=== PATIENT | female | born 1970 | race Caucasian/White ===

== ENCOUNTER → 2019-05-13 15:32 | Outpatient (BNVA) | payer BC, SELFPAY | PROVIDERS: Family Provider Nurse Practitioner Family; PCP Nurse Practitioner Family; Visit Provider Nurse Practitioner Family | DX: E11.9 Type 2 diabetes mellitus without complications (principal); E78.5 Hyperlipidemia, unspecified; I10 Essential (primary) hypertension; K21.9 Gastro-esophageal reflux disease without esophagitis | CPT/HCPCS: 80048; 80061; 82044; 83036 ==

== ENCOUNTER → 2019-05-21 11:53 | Outpatient (BNVA) | payer BC, SELFPAY | PROVIDERS: Family Provider Nurse Practitioner Family; PCP Nurse Practitioner Family; Visit Provider Nurse Practitioner Family | DX: N63.0 Unspecified lump in unspecified breast (principal); M75.82 Other shoulder lesions, left shoulder; N64.52 Nipple discharge | CPT/HCPCS: 87070; 87075; 87077; 87186; 87205 ==

== ENCOUNTER → 2019-11-10 09:00 | Outpatient (BNVA) | payer BC, SELFPAY | PROVIDERS: Family Provider Nurse Practitioner Family; PCP Nurse Practitioner Family; Visit Provider Nurse Practitioner Family | DX: E78.5 Hyperlipidemia, unspecified (principal); E11.9 Type 2 diabetes mellitus without complications; I10 Essential (primary) hypertension; E55.9 Vitamin D deficiency, unspecified; R53.83 Other fatigue; D72.829 Elevated white blood cell count, unspecified; K21.9 Gastro-esophageal reflux disease without esophagitis; R10.9 Unspecified abdominal pain; R59.0 Localized enlarged lymph nodes | CPT/HCPCS: 80053; 80061; 81001; 82306; 84439; 84443; 84481; 85025; 85651; 86140 ==

== ENCOUNTER → 2019-11-11 19:33 | Outpatient (BNVA) | payer BC, SELFPAY | PROVIDERS: Family Provider Nurse Practitioner Family; PCP Nurse Practitioner Family; Visit Provider Nurse Practitioner Family | DX: E11.9 Type 2 diabetes mellitus without complications (principal); E78.5 Hyperlipidemia, unspecified; I10 Essential (primary) hypertension; E55.9 Vitamin D deficiency, unspecified; R53.83 Other fatigue; D72.829 Elevated white blood cell count, unspecified; K21.9 Gastro-esophageal reflux disease without esophagitis; R10.9 Unspecified abdominal pain; R59.0 Localized enlarged lymph nodes; E78.2 Mixed hyperlipidemia | CPT/HCPCS: 83036 ==

== ENCOUNTER 2019-12-01 08:59 | Outpatient (CLI) | payer BC, SELFPAY ==
--- NOTE | 2019-12-01 09:30 | US_ITS ---
WS: [id number] ULTRASOUND ABDOMEN CLINICAL INFORMATION: abdominal pain COMPARISON: NNone.one. FINDINGS: Liver Size: Enlarged Craniocaudal length: 18.8 cm. Echogenicity: Fatty Surface nodularity: None. Mass (size and location): None. Bile ducts Intrahepatic ducts: Normal. Common bile duct diameter: 0.5 cm. Gallbladder Removed Pancreas Normal as visualized. Spleen Splenomegaly: None. Craniocaudal length: 10.4 cm. Right kidney: Normal. Hydronephrosis: None. Size: 10.3 cm x 5.2 cm x 4.7 cm Left kidney: Normal. Hydronephrosis: None. Size: 12.2 cm x 5.0 cm x 4.5 cm. Abdominal aorta and IVC Visualized portions are normal. Ascites: None. US/US abdomen complete* [id number] IMPRESSION: 1. Hepatomegaly with diffuse fatty infiltration. 2. Gallbladder has been removed. 3. No hydronephrosis in either kidney.
--- NOTE | 2019-12-01 10:15 | US_ITS ---
WS: [id number] INDICATION: Left axillary lymphadenopathy TECHNIQUE: Ultrasound left axilla area of concern FINDINGS: Ultrasound left axilla area of concern. Enlarged left axillary lymph node measuring 4.2 x 1 .4 x 2.6 CM with loss of the normal fatty hilum. A few additional normal-appearing normal-sized lymph nodes. US/US soft tissue/extremity [id number] IMPRESSION: A few lymph nodes noted in the left axilla, 1 enlarged measuring 4.2 x 1.4 x 2. 6 CM with loss of the normal fatty hilum. This is nonspecific and recommend fur ther evaluation with ultrasound-guided biopsy.
== END 2019-12-01 09:00 | disposition home or self-care (01) ==
LOC: US 09:00
PROVIDERS: PCP Nurse Practitioner Family; Visit Provider Nurse Practitioner Family
DX: R10.9 Unspecified abdominal pain (principal); R59.0 Localized enlarged lymph nodes; R16.0 Hepatomegaly, not elsewhere classified; K76.0 Fatty (change of) liver, not elsewhere classified
CPT/HCPCS: 76700; 76882

== ENCOUNTER 2019-12-17 12:01 | Outpatient (CLI) | payer BC, SELFPAY ==
--- NOTE | 2019-12-17 13:00 | US_ITS ---
WS: [id number] INDICATION: Ultrasound-guided left axillary biopsy. Enlarged left axillary lymph node. TECHNIQUE: The procedure including risks benefits and complications were discussed with the patient w ho agreed to proceed. Using sterile technique patient was prepped and draped in usual sterile fashion . After 1% lidocaine, using ultrasound guidance, 5 18-gauge cores were obtained of the enlarged left axillary lymph node. No immediate complications. Samples sent to pathology. US/US biopsy lymph node [id number] IMPRESSION: Uncomplicated left axillary lymph node biopsy
[2019-12-25 14:44] LABS: Miscellaneous Test See Scanned Lab Rpt
== END 2019-12-17 12:02 | disposition home or self-care (01) ==
LOC: RAD 12:04
PROVIDERS: PCP Nurse Practitioner Family; Visit Provider Nurse Practitioner Family
DX: R59.0 Localized enlarged lymph nodes (principal)
CPT/HCPCS: 38505; 76942; 88184; 88185; 88305

== ENCOUNTER → 2020-01-08 08:41 | Outpatient (BNVA) | payer BC, SELFPAY | PROVIDERS: PCP Nurse Practitioner Family; Visit Provider Internal Medicine | DX: Z11.59 Encounter for screening for other viral diseases (principal) | CPT/HCPCS: 87635 ==

== ENCOUNTER 2020-01-12 08:49 | Observation (INO) | payer BC, SELFPAY ==
[2020-01-08 12:36] VITALS: BMI 31.3
--- NOTE | 2020-01-08 12:57 | ECG_ITS ---
[facility] Test Date: 2020-01-08 Pat Name: Dinah Fontenot Department: Room: Gender: Female Medical Technologist Prn: : 1970 Requested By: Sandra Hook Order Number: [id number] Alex MD: Rosetta Streeter M.D. Measurements Intervals Victor Rate: 89 P: 23 AR: 176 QRS: 1 QRSD: 89 T: 29 QT: 348 QTc: 424 Interpretive Statements SINUS RHYTHM LOW QRS VOLTAGE IN PRECORDIAL LEADS [QRS DEFLECTION < 1.0 mV IN CHEST LEADS] POSSIBLE ANTERIOR MYOCARDIAL INFARCTION [30 ms Q WAVE IN V3/V4, OR R < 0.2 mV IN V4], PROBABLY OLD No previous ECG available for comparison Electronically Signed On 01-08-2020 21:15:09 CDT by Rosetta Streeter M.D. [id number]
[2020-01-08 13:19] LABS: Basophils # 0.1 10^3/uL (0.0-0.1); Basophils % 0.6 %; Eosinophils # 0.2 10^3/uL (0.0-0.8); Eosinophils % 1.4 %; Hematocrit 50.7 % (37.0-47.0); Hemoglobin 17.1 g/dL (11.5-15.3); Lymphocytes # 3.6 10^3/uL (0.8-4.8); Lymphocytes % 28.4 %; Mean Corpuscular HGB Conc 33.7 g/dL (30.0-36.0); Mean Corpuscular Hemoglobin 30.3 pg (28.0-34.0); Mean Corpuscular Volume 89.7 fL (81-99); Mean Platelet Volume 9.7 fL (7.4-10.4); Monocytes # 0.7 10^3/uL (0.2-0.9); Monocytes % 5.9 %; Neutrophils # 7.95 10^3/uL (1.8-7.7); Neutrophils % 63.5 %; Nucleated Red Blood Cells % 0 %; Platelet Count 299 10^3/cmm (130-400); Red Blood Count 5.65 10^6/uL (4.1-5.3); Red Cell Distribution Width 13.3 % (12.1-15.1); White Blood Count 12.5 10^3/uL (4.0-10.0)
--- NOTE | 2020-01-08 13:33 | P.ANESASSM_ITS ---
Pre-Anesthetic Assessment Pre-Anesthetic Assessment: Height/Weight: Height 1.68 m Weight 87.997 kg Preop Diagnosis: Rectocele Proposed Procedure: Operation Date: 01/12/20 07:00 Proposed Procedures p Posterior Repair Posterior [id number] / N81.6(Not Applicable) - Glynn Robles MD s Enterocele Repair(Not Applicable) - Glynn Robles MD Familial anesthetic complications: hard to wake up Was Beta Comfort taken within 24 hours: N/A Social: Social History: Tobacco and No alcohol Exam: Pre-Anes Outpt Exam: alert, oriented x 3, clear to auscultation bilaterally and regular rate & rhythm Airway: Cervical ROM: WNL MP: 3 Dentition: False CV/HEM: CV/HEM: HTN Hepatic: Comments: cash GI: GI: GERD Metabolic: Metabolic: DM, Hyperlipidemia and Morbid obesity Anesthetic Plan: ASA status: 3 Anesthesia: General Risk of > 500 ml blood loss (7ml/kg in children): No PFSH Anesthesia PFSH: Medical History Axillary lymphadenopathy Diabetes mellitus, type II Diagnosed in 2016 managed by primary care provider. She is on metformin and recently started Rybelsus in November 2019. Enlarged lymph nodes in armpit GERD (gastroesophageal reflux disease) Controlled with omeprazole. Has never had an endoscopy HTN (hypertension) Diagnosed in 2017 and is on lisinopril managed by her primary care provider. Does not have a entry level accountant Hyperlipemia Diagnosed in 2017 and is on medication. CASH (nonalcoholic steatohepatitis) No pertinent past medical history Denies asthma, seizures, DVT/PE or thyroid problems. PCP: NATHALIE Meyer Reactive lymphoid hyperplasia Surgical History S/P bladder repair x2 ----> 2006--had bladder prolapse and had mesh placed by Dr. Estrada. ----> 2014---patient had pain and had removal of mesh by Dr. Perry In [place] S/P colonoscopy with polypectomy Patient had colonoscopy with removal of two polyps. 2013 at [facility]. S/P laparoscopic cholecystectomy 1993 S/P wrist surgery --ganglion cyst removed from left wrist Status post hysterectomy 2006--vaginal hysterectomy with bilateral salpingo-oophorectomy done for abnormal uterine bleeding by Dr. Estrada. -Patient states her pathology was benign. Status post tonsillectomy Age of 6 or 7 Status post tubal ligation 1992- procedure via umbilicus Family History Mother Diabetes Grandmother Diabetes maternal Hypertension maternal Brother Diabetes Family/Other Breast cancer paternal aunt, age at diagnosis unknown Sister Ovarian cancer diagnosed in her 30s, mets to uterus Denies family history of Heart disease Hyperlipidemia Stroke Social History Smoking and tobacco status: current every day smoker Additional social history: - Tobacco Use: Started smoking at age 20 and has smoked up to 1 1/2 packs per day since then. Currently smoking one pack per day. Drug Use: Denies Alcohol Use: Denies Work/Study Status: Stay at home mother Data Anesthesia CBC & Chem 7: 01/08/20 12:57 01/08/20 12:57 Other Labs: Laboratory Results - last 48 hr 01/08/20 12:57 WBC 12.5 H RBC 5.65 H Hgb 17.1 H Hct 50.7 H MCV 89.7 MCH 30.3 MCHC 33.7 RDW 13.3 Plt Count 299 MPV 9.7 Neut % (Auto) 63.5 Lymph % (Auto) 28.4 [place] % (Auto) 5.9 Eos % (Auto) 1.4 Baso % (Auto) 0.6 Neut # (Auto) 7.95 H Lymph # (Auto) 3.6 [place] # (Auto) 0.7 Eos # (Auto) 0.2 Baso # (Auto) 0.1 Nucleated RBC % (auto) 0 Nucleated RBCs # 0.0 Cardiac Studies: No Data to Display
[2020-01-08 14:07] LABS: Blood Urea Nitrogen 11 mg/dL (6-20); Calcium 8.9 mg/dL (8.5-10.5); Carbon Dioxide 27 mmol/L (22-29); Chloride 101 mmol/L (98-107); Glomerular Filtration Rate 105.8 mL/min (90-130); Glucose 91 mg/dL (65-115); Osmolality Calculated 280 mOsm/kg (285-295); Sodium 137 mmol/L (136-145)
[2020-01-12] VITALS (17 sets, daily range): BP systolic 93–143; BP diastolic 61–97; PULSE 63–98; RESP 16–23; TEMP 36.1–36.8; O2SAT 87–99
[2020-01-12 06:40] LABS: Glucose Point of Care 119 mg/dL (70-110)
[2020-01-12] MEDS: ketorolac 30 mg/mL INJ IVP ×2 (06:40→14:16)
[2020-01-12] MEDS: sodium chloride 0.9% 1,000 ML 30 ML IV (06:40)
[2020-01-12] MEDS: phenazopyridine 100 mg Tablet 200 MG PO ×3 (06:40→20:11)
--- NOTE | 2020-01-12 06:42 | P.ANESUD_ITS ---
Pre-Anesthetic Update Pre-Anesthetic Assessment: Date of Surgery/Procedure: 01/12/20 Preop Margot gnosis: Rectocele Proposed Procedure: Operation Date: 01/12/20 07:00 Proposed Procedures p Posterior Repair Posterior [id number] / N81.6(Not Applicable) - Glynn Robles MD s Enterocele Repair(Not Applicable) - Glynn Robles MD Any changes to Pre-Anesthetic Assessment?: No Last Intake: Intake Last Liquid Date 01/12/20 Last Liquid Time 03:00 Last Solid Date 01/11/20 Last Solid Time 22:00 Labs Last 48hrs: Laboratory Results - last 48 hr 01/12/20 06:36 POC Glucose 119 Vitals: Temperature 97.9 F 01/12/20 06:04 Temperature Source Temporal Artery S can 01/12/20 06:04 Pulse Rate 75 01/12/20 06:04 Respiratory Rate 18 01/12/20 06:04 Blood Pressure 138/97 01/12/20 06:04 Blood Pressure Whitney n 110 01/12/20 06:04 Pulse Oximetry 95 01/12/20 06:04 Oxygen Delivery Me thod 01/12/20 06:07 Exam: Pre-Anes Outpt Exam: alert, oriented x 3, clear to auscultation bilaterally and regular rate & rhythm
--- NOTE | 2020-01-12 06:43 | P.HPUD_ITS ---
Surgery/Procedure H&P Update DATE OF PROCEDURE: January 12, 2020 DATE H&P PERFORMED: 01/08/20 H&P UPDATE INFORMATION: I have reviewed H&P completed within last 30 days, I have examined patient prior to procedure, No changes to prior documentation and H&P is in [facility] EMR on date indicated PREOP DIAGNOSIS: Rectocele PLANNED PROCEDURE: Operation Date: 01/12/20 07:00 Proposed Procedures p Posterior Repair Posterior [id number] / N81.6(Not Applicable) - Glynn Robles MD s Enterocele Repair(Not Applicable) - Glynn Robles MD
[2020-01-12] MEDS: vasopressin 20 unit/mL INJ INJECTION (08:02)
--- NOTE | 2020-01-12 08:25 | PM.OP ---
Operative Report Date of procedure: January 12, 2020 Pre-op Diagnosis: Rectocele Post-op Diagnosis: Rectocele Procedure Done: Posterior colporrhaphy Specimens removed/disposition: None Surgeon: Glynn Robles Archival Studies Professor: None Anesthesia: General Estimated blood loss (mL): 50 IV fluids (mL): 1,000 Complications: None Findings: Third-degree rectocele with perineal defect. Brief History: Patient is a 49-year-old white female 5, para 3-2-0-5 who had a hysterectomy with BSO in 2006. She presented to the office with >1-year history of prolapse complaints. She has noticed a bulge at the vaginal opening which worsens with prolonged standing and straining with bowel movements. She reports having to push down on the bulge to assist with emptying bowels. She denies vaginal bleeding. She denied other complaints. On exam in the office, she was noted to have a third degree rectocele with possible enterocele. Treatment options were discussed with her and she is presenting for posterior repair. Procedure: Patient was taken to the operating room where general anesthesia was obtained. She was prepped and draped in usual sterile fashion dorsal supine position with legs in Braulio style stirrups. Sequential compression boots have been placed prior to starting the case. Argueta catheter was inserted and exam under anesthesia was performed. She had a third degree rectocele noted with gaping perineum. Peritoneum was injected with dilute Pitressin solution and a wedge shaped piece of skin was excised. Posterior vaginal wall was injected with dilute Pitressin solution. It was undermined and opened in the midline for approximately two thirds of the length of the posterior wall. The vaginal mucosa was sharply and bluntly dissected off of the rectovaginal fascia and the dissection was carried to the vaginal vault. It was extended laterally to the lateral aspect of the posterior wall. Rectovaginal exam was performed at this point. No enterocele was identified. Rectovaginal fascia was identified and had been torn across the upper supports and had been pushed down towards the perineal body. In the corners at the vaginal cuff 2-0 Vicryl suture was placed with good support noted in the corners. Multiple stitches were placed across the top of the vaginal cuff. The stitches were then secured into the apex of the rectovaginal fascia. When tied, this almost completely eliminated the rectocele. To provide additional support, 2-0 Vicryl suture was placed laterally into the posterior wall and tied in the midline. This provided further support along the posterior wall. This was carried out into the main body of the perineum as well. Excess vaginal mucosa was excised. The posterior vaginal wall was closed with 3-0 Vicryl suture in a running locking fashion. Once the hymenal ring was reached, stitch was tied. The perineal body was further built-up with interrupted stitches of 2-0 Vicryl suture. Stitch was placed of the bulbocavernosus muscles bilaterally and tied in the midline providing additional perineal support. The superficial portion of the perineum was reapproximated using 3-0 Vicryl suture in a running fashion. Skin was reapproximated using 3-0 Vicryl suture in a subcuticular fashion. Rectovaginal exam was performed with good support of the posterior wall noted. Vagina was packed with 1 inch Nu Gauze. Patient tolerated procedure well. Sponge and needle counts were correct. Drains: Argueta catheter Postoperative Status: Patient was transferred to recovery room in satisfactory condition.
--- NOTE | 2020-01-12 08:37 | SUR.PHASEI ---
0834 PATIENT TO PACU FROM OR. RR EVEN AND UNLABORED. ORAL AIRWAY IN PLACE. OJEDA CATH IN PLACE. PATIENT APPEARS IN NO PAIN.
--- NOTE | 2020-01-12 08:58 | SUR.PHASEI ---
0840 ORAL AIRWAY REMOVED. SPO2 98% ON SIMPLE MASK AT 8L.
--- NOTE | 2020-01-12 09:00 | PM.PACU ---
PACU note Post-Anesthesia Exam: awake and unarousable Disposition: admitted
--- NOTE | 2020-01-12 09:02 | SUR.PHASEI ---
0900 PATIENT TO OB. TRANSPORTED BY [facility]. PATIENT DENIES PAIN. A/OX3. RR UNLABORED. NAUSEA IMPROVED. TOLERATING ICE CHIPS. OJEDA CATH IN PLACE.
[2020-01-12] MEDS: lactated ringers 1,000 ML 125 ML IV (10:00)
[2020-01-12] MEDS: ondansetron 2 mg/ML SDV 2 mL 4 MG IVP (10:00)
[2020-01-12] MEDS: scopolamine 1.5 Patch 1 PATCH TRANSDERMA (10:20)
[2020-01-12 12:04] LABS: Glucose Point of Care 113 mg/dL (70-110)
[2020-01-12] MEDS: HYDROcodone-acetaminophen 5-325 mg Tablet PO (16:28)
[2020-01-12 16:48] LABS: Glucose Point of Care 123 mg/dL (70-110)
[2020-01-12] MEDS: metformin 500 mg Tablet PO (17:02)
[2020-01-12] MEDS: docusate sodium 100 mg Capsule PO (17:02)
[2020-01-12] MEDS: nicotine 21 mg Patch 1 PATCH TRANSDERMA (17:37)
[2020-01-12] MEDS: alum-mag-hydroxide-sime 30 mL UDC PO (20:11)
[2020-01-12 20:19] LABS: Glucose Point of Care 151 mg/dL (70-110)
[2020-01-13] MEDS: HYDROcodone-acetaminophen 5-325 mg Tablet PO (00:48)
[2020-01-13 04:15] VITALS: BP 125/76; PULSE 73; RESP 16; TEMP 36.6; O2SAT 95
[2020-01-13 04:25] LABS: Hematocrit 44.4 % (37.0-47.0); Hemoglobin 14.4 g/dL (11.5-15.3); Mean Corpuscular HGB Conc 32.4 g/dL (30.0-36.0); Mean Corpuscular Hemoglobin 29.8 pg (28.0-34.0); Mean Corpuscular Volume 91.7 fL (81-99); Mean Platelet Volume 9.9 fL (7.4-10.4); Platelet Count 275 10^3/cmm (130-400); Red Blood Count 4.84 10^6/uL (4.1-5.3); Red Cell Distribution Width 13.6 % (12.1-15.1); White Blood Count 16.8 10^3/uL (4.0-10.0)
[2020-01-13 06:56] LABS: Glucose Point of Care 110 mg/dL (70-110)
[2020-01-13] MEDS: docusate sodium 100 mg Capsule PO (08:06)
[2020-01-13] MEDS: lisinopril 10 mg Tablet PO (08:06)
[2020-01-13] MEDS: phenazopyridine 100 mg Tablet 200 MG PO (08:06)
[2020-01-13] MEDS: metformin 500 mg Tablet PO (08:07)
[2020-01-13] MEDS: pantoprazole DR 40 mg Tablet PO (08:07)
--- NOTE | 2020-01-13 08:15 | PC.NURSE ---
Packing removed per Dr Tony, pt tolerated well. Small amount of old bleeding noted, nothing active or new.
--- NOTE | 2020-01-13 08:25 | PM.DCS ---
Discharge Providers Date of Admission: 01/12/20 08:49 Date of Discharge: January 13, 2020 Attending Provider at Admission: Glynn Robles MD Attending Provider at Discharge: Glynn Robles MD Primary Care Provider: NATHALIE Aragon Diagnoses at Discharge Discharge Diagnosis (1) Rectocele: Status: Acute (2) Diabetes mellitus, type II: Status: Acute Problem details: Diagnosed in 2017 managed by primary care provider. She is on metformin and recently started Rybelsus in November 2019. Qualifiers: Diabetes mellitus roasterman insulin use: unspecified detention insulin use status Diabetes mellitus complication status: without complication Qualified Code(s): E11.9 - Type 2 diabetes mellitus without complications (3) HTN (hypertension): Status: Acute Problem details: Diagnosed in 2017 and is on lisinopril managed by her primary care provider. Does not have a web merchandiser Qualifiers: Hypertension type: essential hypertension Qualified Code(s): I10 - Essential (primary) hypertension Reason for Visit Reason for Visit: Brief History: Surgery for rectocele Hospital Course Hospital Course: Patient is a 49-year-old white female 5, para 3-2-0-5 who is status post hysterectomy and BSO in 2006. She presented to the office with a >1-year history of prolapse complaints. She has noticed a bulge at the vaginal opening which worsens with prolonged standing and straining with bowel movements. She reports having to push down on the bulge to assist with emptying her bowels. She denied vaginal bleeding. She denied other complaints. She presented to the hospital for surgical treatment. She had a posterior colporrhaphy performed on 01/12/2020. She tolerated the surgery well. She did have some post op nausea requiring parenteral antiemetics. Her sugars were covered with sliding scale insulin initially following surgery. She had been advanced to a regular diet by supper and was started on metformin. She had received her home dose of lisinopril the morning of surgery. Postoperative Day 1 Patient reports doing well. She states her pain is been controlled with medications. She denied lightheadedness or dizziness with ambulation. She reports tolerating a regular diet without nausea or vomiting this morning. She denies shortness of breath or chest pains. Physical exam: See below Plan Vaginal packing was removed and Argueta catheter removed this morning. Patient is to urinate at least once. If she does well with this, she then will be discharged home. She was instructed to resume her usual home medications. Discharge instructions were discussed with her including nothing in the vagina until after her 6 weeks checkup. Lifting restrictions was also discussed. Patient to follow-up in the office in 2 and 6 weeks. Physical Exam Const: COMMON NORMALS: no acute distress, average body habitus, alert and well nourished GENERAL APPEARANCE: well developed ORIENTATION/CONSCIOUSNESS: Yes oriented to person, Yes oriented to place and Yes oriented to time Resp: COMMON NORMALS: normal respiratory effort and clear to auscultation bilaterally AUSCULTATION: clear to auscultation bilaterally Cardio: COMMON NORMALS: regular rate, regular rhythm, No gallops present (Cardio), No murmurs present (Cardio) and No rub (Cardio) RATE: regular rate RHYTHM: regular rhythm GI: COMMON NORMALS: Soft to palpation, No hepatosplenomegaly present and no masses AUSCULTATION: Yes normoactive bowel sounds PALPATION: Yes Soft to palpation, Yes Tenderness to palpation present (GI) (Mild suprapubic tenderness), Yes No hepatosplenomegaly present and No Hernia present : EXTERNAL FEMALE EXAM: No Hernia present Extremity: COMMON NORMALS: no clubbing, cyanosis or edema and no calf tenderness Neuro: SENSORIUM/ORIENTATION: Yes alert, Yes oriented to person, Yes oriented to place and Yes oriented to time Psych: COMMON NORMALS: normal affect MOOD & AFFECT: Yes euthymic mood Urinary Catheter Management^: Argueta: Cath Placed During This Visit: yes Urinary Catheter Date of Insertion: 01/12/20 Urinary Catheter Time of Insertion: 07:13 Discharge Data Data Completed and Pending: Labs from last 24 hours 01/13/20 01/13/20 01/12/20 06:52 04:15 20:15 WBC 16.8 H RBC 4.84 Hgb 14.4 Hct 44.4 MCV 91.7 MCH 29.8 MCHC 32.4 RDW 13.6 Plt Count 275 MPV 9.9 POC Glucose 110 151 01/12/20 01/12/20 16:31 11:59 WBC RBC Hgb Hct MCV MCH MCHC RDW Plt Count MPV POC Glucose 123 113 Vitals: Last Vital Signs Temp 98 F 01/13/20 04:15 Pulse 73 01/13/20 04:15 Resp 16 01/13/20 04:15 BP 125/76 01/13/20 04:15 Pulse Ox 95 01/13/20 04:15 Discharge Plan Discharge Patient Disposition: Home Condition: Stable Prescriptions: New hydrocodone-acetaminophen 5-325 mg Tablet 1 - 2 tab PO Q6H PRN (Reason: Moderate To Severe Pain) Qty: 20 RF: 0 Continued lisinopril 10 mg tablet 10 mg PO DAILY Qty: 30 RF: 2 omeprazole 20 mg capsule,delayed release(DR/EC) 20 mg PO DAILY Qty: 30 RF: 1 simvastatin 20 mg tablet See Rx Instructions .ROUTE .COMPLEX Qty: 90 RF: 0 Rybelsus 3 mg tablet 3 mg PO DAILY 30 Days Qty: 30 RF: 2 omega-3 fatty acids 1,000 mg capsule 2,000 mg PO DAILY 30 Days Qty: 60 RF: 2 cholecalciferol (vitamin D3) 100 mcg (4,000 unit) tablet 100 mcg PO DAILY RF: 0 metformin 500 mg tablet See Rx Instructions .ROUTE .COMPLEX Qty: 60 RF: 2 ondansetron HCl [Zofran] 4 mg tablet 4 mg PO Q8H PRN (Reason: nausea and vomiting) 5 Days Qty: 15 RF: 0 Held estradiol [Estrace] 0.01 % (0.1 mg/gram) cream 0.5 gm VAGINAL .twice weekly Qty: 42.5 RF: 1 Hold Instructions: Resume on 01/27/20. Do not restart until after 2-week appointment in the office. Discharge Orders: Discharge Order (Routine); Ordered 01/13/20 Ordered By: Glynn Robles Referrals: Glynn Robles MD [Physician] - 01/27/20 10:00 am (Postoperative appointments on 01/27/20 at 10:00 and 02/24/20 at 10:00) Discharge Diet: Regular Discharge Activity: Limit activity as instructed Patient Instructions: OB Abdominal Surgery - [facility] Activity Restrictions/Additional Instructions: May use [id number] ibuprofen 200 mg, 3 tablets 4 times a day or 4 tablets 3 times a day, as needed for pain Discharge Attestations Time Spent in Discharge Care*: less than 30 min Quality Metrics Clinical Quality Measures During this hospital stay, did patient experience: None Coding Level of Care Code Acute Chainstitch Tunnel Elastic Operator for g Fwd Diagnoses Rectocele N81.6 Diabetes mellitus, type II E11.9 Diabetes mellitus detention insulin use: unspecified detention insulin use status Diabetes mellitus complication status: without complication HTN (hypertension) I10 Hypertension type: essential hypertension
[2020-01-13] MEDS: pneumococcal (23 valent) SDV 0.5 mL IM (10:18)
[2020-01-13 10:25] VITALS: BP 113/75; PULSE 67; RESP 16; TEMP 36.7
[2020-01-13 10:44] VITALS: BP 113/75; PULSE 67; RESP 16; TEMP 36.7
--- NOTE | 2020-01-13 10:56 | ANE.PACU2 ---
Inpatient post-anesthesia follow up: Airway intact: Yes Vital signs: Temperature 98.0 F Pulse Rate 67 Respiratory Rate 16 Blood Pressure 113/75 Pulse Oximetry 95 Oxygen Delivery Me thod Room Air Oxygen Flow Rate 2 Fraction of Inspir ed Oxygen Hydration adequate: Yes Nausea and vomiting: No Pain level: 2 Mental status: Baseline
--- NOTE | 2020-01-14 13:14 | PC.RESP ---
Smoking Cessation information and a schedule of classes sent to [facility].
== END 2020-01-13 10:28 | disposition home or self-care (01) ==
LOC: OBGYN 08:58
PROVIDERS: Admitting Provider Obstetrics & Gynecology; PCP Nurse Practitioner Family; Visit Provider Obstetrics & Gynecology
PROC: (CPT 57250; principal; 2020-01-12 07:00)
DX: N81.6 Rectocele (principal); I10 Essential (primary) hypertension; E11.9 Type 2 diabetes mellitus without complications; E78.5 Hyperlipidemia, unspecified; E66.01 Morbid (severe) obesity due to excess calories; Z90.710 Acquired absence of both cervix and uterus; F17.200 Nicotine dependence, unspecified, uncomplicated; Z79.84 Long term (current) use of oral hypoglycemic drugs; Z68.31 Body mass index [BMI] 31.0-31.9, adult; Z90.722 Acquired absence of ovaries, bilateral
CPT/HCPCS: 57250; 12345; 36415; 36416; 80048; 82962; 85025; 85027; 87086; 90471; 90732; 93005; 96361; 96365; 96374; 96375; G0378; J0690; J1885; J2370; J2405; J2704; J2710; J3010; J3490; J7030

== ENCOUNTER → 2020-02-08 10:12 | Outpatient (BNVA) | payer BC, SELFPAY | PROVIDERS: PCP Nurse Practitioner Family; Visit Provider Nurse Practitioner Family | DX: E11.9 Type 2 diabetes mellitus without complications (principal) | CPT/HCPCS: 80053; 83036; 83735; 84100; 85025 ==

== ENCOUNTER 2020-02-15 10:46 | Outpatient (CLI) | payer BC, SELFPAY ==
--- NOTE | 2020-02-15 11:45 | US_ITS ---
WS: [id number] ULTRASOUND SOFT TISSUES LEFT axilla HISTORY: AXILLARY LYMPHADENOPATHY COMPARISON: 12/01/2019 and 12/17/2019 TECHNIQUE: 2-D and color Doppler imaging is submitted. Normal lymph nodes in the LEFT axilla. There is no soft tissue mass, hematoma or seroma. US/US soft tissue/extremity [id number] IMPRESSION: Normal ultrasound LEFT axilla. No suspicious adenopathy.
== END 2020-02-15 10:47 | disposition home or self-care (01) ==
LOC: US 10:46
PROVIDERS: PCP Nurse Practitioner Family; Visit Provider Surgery
DX: R59.0 Localized enlarged lymph nodes (principal)
CPT/HCPCS: 76882

== ENCOUNTER 2020-02-22 16:00 | Outpatient (CLI) | payer BC, SELFPAY | END 2020-02-22 16:01 | disposition home or self-care (01) | LOC: LAB 12-16 13:34 | PROVIDERS: PCP Nurse Practitioner Family; Visit Provider Nurse Practitioner Family | DX: N39.0 Urinary tract infection, site not specified (principal) | CPT/HCPCS: 81003 ==

== ENCOUNTER 2020-03-03 06:00 | Outpatient (RCR) | payer BC, SELFPAY | END 2020-03-05 23:59 | disposition home or self-care (01) | LOC: WPT 06:00 | PROVIDERS: PCP Nurse Practitioner Family; Referring Provider Nurse Practitioner Family; Visit Provider Nurse Practitioner Family | DX: M67.912 Unspecified disorder of synovium and tendon, left shoulder (principal) | CPT/HCPCS: 97110; 97163 ==

== ENCOUNTER 2020-03-06 06:00 | Outpatient (RCR) | payer BC, SELFPAY | END 2020-04-04 23:59 | disposition home or self-care (01) | LOC: WPT 06:00 | PROVIDERS: PCP Nurse Practitioner Family; Referring Provider Nurse Practitioner Family; Visit Provider Nurse Practitioner Family | DX: M67.912 Unspecified disorder of synovium and tendon, left shoulder (principal) | CPT/HCPCS: 97110 ==

== ENCOUNTER → 2020-05-11 10:32 | Outpatient (BNVA) | payer BC, SELFPAY | PROVIDERS: PCP Nurse Practitioner Family; Visit Provider Nurse Practitioner Family | DX: Z20.828 Contact with and (suspected) exposure to other viral communicable diseases (principal) | CPT/HCPCS: 87635 ==

== ENCOUNTER → 2020-05-20 11:33 | Outpatient (BNVA) | payer BC, SELFPAY | PROVIDERS: PCP Nurse Practitioner Family; Visit Provider Nurse Practitioner Family | DX: E11.9 Type 2 diabetes mellitus without complications (principal); F41.9 Anxiety disorder, unspecified; F32.9 Major depressive disorder, single episode, unspecified; E55.9 Vitamin D deficiency, unspecified | CPT/HCPCS: 80053; 82306; 83036; 85025 ==

== ENCOUNTER → 2020-08-16 09:00 | Outpatient (BNVA) | payer BC, SELFPAY | PROVIDERS: PCP Nurse Practitioner Family; Visit Provider Nurse Practitioner Family | DX: I10 Essential (primary) hypertension (principal); R20.0 Anesthesia of skin; M51.36 Other intervertebral disc degeneration, lumbar region; M54.2 Cervicalgia; K75.81 Nonalcoholic steatohepatitis (NASH); E11.9 Type 2 diabetes mellitus without complications | CPT/HCPCS: 80053; 83036; 83735; 84439; 84443 ==

== ENCOUNTER 2020-08-17 12:14 | Outpatient (CLI) | payer OTHER, SELFPAY ==
--- NOTE | 2020-08-17 12:26 | XR_ITS ---
WS: [id number] Lumbar spine, AP, L5-S1 spot, both obliques, lateral with flexion, extension and neutral positions, Clinical Data: M51.36 - Other intervertebral disc degeneration, lumbar region Comparison: None. Findings: No compression fractures or subluxation is seen. No disc space narrowing is seen. The transverse proc esses and SI joints are normal. There is minimal anterior osteoarthritic spurring at L2 and L3. The oblique films show no spondylolysis. On flexion and extension there is no limitation of motion or subluxation. There are right upper quadrant clips from a cholecystectomy. XR/XR lumbar spine 6V w f/e [id number] Impression: 1. Minimal osteoarthritis at L2 and L3. 2. Negative for spondylolysis or spondylolisthesis. 3. Negative for limitation of motion or subluxation on flexion or extension.
--- NOTE | 2020-08-17 12:26 | XR_ITS ---
WS: [id number] Lateral views of cervical spine in the flexion, extension and neutral positions. 08/17/2020 Clinical Data: M54.2 - Cervicalgia Comparison: None. Findings: Osteoarthritis of the C5-C7 vertebral bodies. There is disc space narrowing at C5-C6 and C6-C7. On fl exion and extension there is no limitation of motion or subluxation. No prevertebral soft tissue swel ling is seen. There are no compression fractures. XR/XR cervical spine fl/ex [id number] Impression: 1. Osteoarthritis of the C5-C7 vertebral bodies. 2. Degenerative disc narrowing at C5-C6 and C6-C7. 3. No limitation of motion or subluxation on flexion or extension.
== END 2020-08-17 12:15 | disposition home or self-care (01) ==
LOC: RAD 12:23
PROVIDERS: PCP Nurse Practitioner Family; Visit Provider Nurse Practitioner Family
DX: M54.2 Cervicalgia (principal); R20.0 Anesthesia of skin; M51.36 Other intervertebral disc degeneration, lumbar region; M47.812 Spondylosis without myelopathy or radiculopathy, cervical region
CPT/HCPCS: 72040; 72114

== ENCOUNTER 2020-08-30 06:00 | Outpatient (RCR) | payer OTHER, SELFPAY | END 2020-09-02 23:59 | disposition home or self-care (01) | LOC: WPT 06:00 | PROVIDERS: PCP Nurse Practitioner Family; Referring Provider Nurse Practitioner Family; Visit Provider Nurse Practitioner Family | DX: M50.30 Other cervical disc degeneration, unspecified cervical region (principal); M54.5 Low back pain; G89.29 Other chronic pain; M54.2 Cervicalgia | CPT/HCPCS: 97110; 97163 ==

== ENCOUNTER 2020-09-03 06:00 | Outpatient (RCR) | payer OTHER, SELFPAY | END 2020-10-03 23:59 | disposition home or self-care (01) | LOC: WPT 06:00 | PROVIDERS: PCP Nurse Practitioner Family; Referring Provider Nurse Practitioner Family; Visit Provider Nurse Practitioner Family | DX: M50.30 Other cervical disc degeneration, unspecified cervical region (principal); M54.5 Low back pain; G89.29 Other chronic pain; M54.2 Cervicalgia | CPT/HCPCS: 97110; 97140 ==

== ENCOUNTER → 2020-09-13 09:54 | Outpatient (BNVA) | payer OTHER, SELFPAY | PROVIDERS: PCP Nurse Practitioner Family; Referring Provider Nurse Practitioner Family; Visit Provider Anesthesiology Pain Medicine | DX: G89.29 Other chronic pain (principal); M54.2 Cervicalgia; M54.5 Low back pain; F17.210 Nicotine dependence, cigarettes, uncomplicated; Z79.891 Long term (current) use of opiate analgesic | CPT/HCPCS: 99204 ==

== ENCOUNTER → 2020-09-14 14:41 | Outpatient (BNVA) | payer OTHER, SELFPAY | PROVIDERS: PCP Nurse Practitioner Family; Visit Provider Psychiatry & Neurology Psychiatry | DX: F43.12 Post-traumatic stress disorder, chronic (principal); F33.2 Major depressive disorder, recurrent severe without psychotic features; F41.1 Generalized anxiety disorder; F17.200 Nicotine dependence, unspecified, uncomplicated | CPT/HCPCS: 99204 ==

== ENCOUNTER → 2020-09-21 09:16 | Outpatient (BNVA) | payer OTHER, SELFPAY | PROVIDERS: PCP Nurse Practitioner Family; Visit Provider Specialist | DX: G56.03 Carpal tunnel syndrome, bilateral upper limbs (principal); F17.210 Nicotine dependence, cigarettes, uncomplicated | CPT/HCPCS: 95910 ==

== ENCOUNTER → 2020-10-14 15:48 | Outpatient (BNVA) | payer OTHER, SELFPAY | PROVIDERS: PCP Nurse Practitioner Family; Visit Provider Orthopaedic Surgery | DX: Z20.822 Contact with and (suspected) exposure to COVID-19 (principal) | CPT/HCPCS: 87635 ==

== ENCOUNTER 2020-10-20 08:58 | Day surgery (SDC) | payer OTHER, SELFPAY ==
[2020-10-19 09:28] VITALS: BMI 34.1
[2020-10-20 09:07] VITALS: BP 118/68; PULSE 85; RESP 18; TEMP 37; O2SAT 94
[2020-10-20 09:23] LABS: Glucose Point of Care 159 mg/dL (70-110)
--- NOTE | 2020-10-20 09:26 | P.ANESASSM_ITS ---
Pre-Anesthetic Assessment Pre-Anesthetic Assessment: Height/Weight: Height 1.65 m Weight 92.986 kg Temp Pulse Resp BP Pulse Ox 98.6 F 85 18 118/68 94 10/20/20 09:07 10/20/20 09:07 10/20/20 09:07 10/20/20 09:07 10/20/20 09:07 Preop Diagnosis: Rectocele Proposed Procedure: Operation Date: 10/20/20 09:40 Proposed Procedures p left Carpal Tunnel Release 54867 g56.03(Left) - Bro Moore MD Was Beta Comfort taken within 24 hours: N/A Was Clonidine taken within 24 hours: N/A Last intake: Intake Last Liquid Date 10/19/20 Last Liquid Time 23:00 Last Solid Date 10/19/20 Last Solid Time 23:00 Social: Social History: Tobacco and No alcohol Exam: Pre-Anes Outpt Exam: alert, oriented x 3 and regular rate & rhythm Airway: Submandibular: WNL Cervical ROM: WNL MP: 2 Dentition: Chipped Additional comments: poor dentition Pulmonary: Pulmonary: COPD and Sleep apnea CV/HEM: CV/HEM: HTN GI: GI: GERD Comments: SCHAEFER Metabolic: Metabolic: DM and Morbid obesity Neuropsych: Neuropsych: Anxiety and Depression Anesthetic Plan: ASA status: 3 Anesthesia: MAC Risk of > 500 ml blood loss (7ml/kg in children): No PFSH Anesthesia PFSH: Medical History (Updated 10/12/20 @ 09:21 by NATHALIE Patterson) Anxiety and depression Axillary lymphadenopathy Benign hypertension Bilateral wheezing Chronic low back pain Chronic neck pain DDD (degenerative disc disease), cervical DDD (degenerative disc disease), lumbar Diabetes mellitus, type II Diagnosed in 2016 managed by primary care provider. She is on metformin and recently started Rybelsus in November 2019. Diarrhea Enlarged lymph nodes in armpit GERD (gastroesophageal reflux disease) Has never had an endoscopy HTN (hypertension) Diagnosed in 2018 and is on lisinopril managed by her primary care provider. Does not have a community liaison officer Hyperlipemia Diagnosed in 2017 and is on medication. Hyperlipemia Lower respiratory infection Magnesium deficiency Mixed hyperlipidemia SCHAEFER (nonalcoholic steatohepatitis) No pertinent past medical history Denies asthma, seizures, DVT/PE or thyroid problems. PCP: NATHALIE Meyer Numbness and tingling of lower extremity Otitis media Postcholecystectomy syndrome Reactive lymphoid hyperplasia Rotator cuff dysfunction Shortness of breath UTI (urinary tract infection), uncomplicated Surgical History H/O vaginal surgery (01/12/20) Posterior colporrhaphy. [place] [facility] [place] S/P bladder repair x2 ----> 2006--had bladder prolapse and had mesh placed by Dr. Estrada. ----> 2014---patient had pain and had removal of mesh by Dr. Perry In [place] S/P colonoscopy with polypectomy Patient had colonoscopy with removal of two polyps. 2013 at [facility]. S/P laparoscopic cholecystectomy 1993 S/P wrist surgery --ganglion cyst removed from left wrist Status post hysterectomy 2006--vaginal hysterectomy with bilateral salpingo-oophorectomy done for abnormal uterine bleeding by Dr. Estrada. -Patient states her pathology was benign. Status post tonsillectomy Age of 6 or 7 Status post tubal ligation 1992- procedure via umbilicus Family History Mother Diabetes Grandmother Diabetes maternal Hypertension maternal Brother Diabetes Family/Other Breast cancer paternal aunt, age at diagnosis unknown Sister Ovarian cancer diagnosed in her 30s, mets to uterus Social History Smoking and tobacco status: current every day smoker cigarettes Packs smoked per day: 0.5 Years cigarettes smoked: 29 Quit status (tobacco): has tried quititng Number of times tried to quit tobacco: 20 Second hand smoke exposure: Yes Alcohol intake: never Other details last substance use: Denies drug use Current occupation: Stay at home Additional social history: - Tobacco Use: Started smoking at age 20 and has smoked up to 1 1/2 packs per day since then. Currently smoking one pack per day. Drug Use: Denies Alcohol Use: Denies Work/Study Status: Stay at home mother Data Anesthesia Other Labs: Laboratory Results - last 48 hr 10/20/20 09:20 POC Glucose 159 H Cardiac Studies: No Data to Display
[2020-10-20] MEDS: sodium chloride 0.9% 1,000 ML 30 ML IV (09:36)
--- NOTE | 2020-10-20 10:13 | W.PM.OPSUD ---
Surgery/Procedure H&P Update DATE OF PROCEDURE: October 20, 2020 DATE H&P PERFORMED: 10/12/20 PREOP DIAGNOSIS: Rectocele PLANNED PROCEDURE: Operation Date: 10/20/20 09:40 Proposed Procedures p left Carpal Tunnel Release [id number] g56.03(Left) - Bro Moore MD
[2020-10-20 10:57] VITALS: BP 97/75; PULSE 92; RESP 16; TEMP 36.4; O2SAT 91
[2020-10-20 11:00] VITALS: BP 108/74; PULSE 89; RESP 16; O2SAT 94
--- NOTE | 2020-10-20 11:00 | PM.OP ---
Operative Report Date of procedure: October 20, 2020 Pre-op Diagnosis: Right carpal tunnel syndrome Post-op diagnosis: same Post-op Findings: Same Procedure Done: Right carpal tunnel release Pathology: none sent Anesthesia: Nerve Block ([place] block) Estimated blood loss (mL): 5 Tourniquet time (min): 22 Findings: No masses or space-occupying lesions were seen within the carpal Condition: stable Disposition: PACU Procedure: Patient was taken to the operating room and anesthesia provided by the anesthesia service. She was prepped and draped with the arm exposed. A timeout was performed. A 3 cm long incision was made in line with the fourth ray from the distal edge of the carpal tunnel extending proximally. The subcutaneous fat and palmar fascia was divided with a scalpel blade. Under loupe magnification the ulnar neurovascular bundle was identified distally. A hemostat could be passed under the transverse carpal ligament allowing the distal 25% to be divided. A slotted guide was then passed beneath the transverse carpal ligament and the middle 50% divided. Blunt scissors were then passed over the guide freeing the proximal ligament. The tourniquet was deflated. Hemostasis provided with electrocautery. Wound edges were infiltrated with 10 cc of a half percent Marcaine solution. Skin edges were reapproximated with 3-0 Prolene. Sterile dressings were applied. The patient was taken to the recovery room in stable condition
[2020-10-20 11:06] VITALS: BP 113/74; PULSE 84; RESP 14; O2SAT 94
[2020-10-20 11:17] VITALS: BP 116/70; PULSE 83; RESP 16; TEMP 36.6; O2SAT 94
--- NOTE | 2020-10-20 13:31 | ANE.PACU2 ---
Inpatient post-anesthesia follow up: Airway intact: Yes Vital signs: Temperature 97.8 F Pulse Rate 83 Respiratory Rate 16 Blood Pressure 116/70 Pulse Oximetry 94 Oxygen Delivery Me thod Room Air Oxygen Flow Rate Fraction of Inspir ed Oxygen Hydration adequate: Yes Nausea and vomiting: No Pain level: 1 Mental status: Baseline
== END 2020-10-20 12:55 | disposition home or self-care (01) ==
PROVIDERS: PCP Nurse Practitioner Family; Visit Provider Orthopaedic Surgery
PROC: (CPT 64721; principal; 2020-10-20 09:30)
DX: G56.01 Carpal tunnel syndrome, right upper limb (principal); J44.9 Chronic obstructive pulmonary disease, unspecified; G47.30 Sleep apnea, unspecified; E11.9 Type 2 diabetes mellitus without complications; E66.01 Morbid (severe) obesity due to excess calories; Z68.34 Body mass index [BMI] 34.0-34.9, adult; F41.9 Anxiety disorder, unspecified; F32.9 Major depressive disorder, single episode, unspecified; I10 Essential (primary) hypertension; Z79.84 Long term (current) use of oral hypoglycemic drugs; E78.2 Mixed hyperlipidemia; Z82.49 Family history of ischemic heart disease and other diseases of the circulatory system; Z83.3 Family history of diabetes mellitus; F17.210 Nicotine dependence, cigarettes, uncomplicated
CPT/HCPCS: 64721; 36416; 82962; J0690; J2250; J2704; J3010; J3490; J7030

== ENCOUNTER → 2020-10-26 08:49 | Outpatient (BNVA) | payer SELFPAY | PROVIDERS: PCP Nurse Practitioner Family; Visit Provider Dermatology | DX: Z01.89 Encounter for other specified special examinations (principal) ==

== ENCOUNTER → 2020-11-08 10:10 | Outpatient (BNVA) | payer OTHER, SELFPAY | PROVIDERS: PCP Nurse Practitioner Family; Visit Provider Anesthesiology Pain Medicine | DX: G89.29 Other chronic pain (principal); M54.5 Low back pain; M54.2 Cervicalgia; F17.210 Nicotine dependence, cigarettes, uncomplicated; Z79.891 Long term (current) use of opiate analgesic | CPT/HCPCS: 99213 ==

== ENCOUNTER 2020-11-14 15:29 | Outpatient (CLI) | payer OTHER, SELFPAY ==
--- NOTE | 2020-11-14 15:42 | MR_ITS ---
WS: [id number] MRI LUMBAR SPINE NONCONTRAST HISTORY: Chronic low back and RIGHT leg pain. COMPARISON: None available. TECHNIQUE: Sagittal and axial multisequence imaging is submitted. Straightening of the normal cervical lordosis. Mild scoliosis lumbar spine. Normal posterior alignment. No acute marrow edema or fracture. Disc spaces and vertebral body heights are well-preserved. Conus terminates normally at L1-2 disc level. L1-L2: No stenosis or disc protrusion. Small, 3 mm facet joint cyst on the LEFT. L2-L3: Mild bilateral facet joint arthritis. Ligamentum flavum and bone hypertrophy with no stenosis. L3-L4: Moderate bilateral ligamentum flavum hypertrophy and facet arthritis. No stenosis. L4-L5: Moderate RIGHT facet joint arthritis and mild on the LEFT. Mild osteophytic ridging of the marcos tebral body with no stenosis. L5-S1: Mild asymmetric disc bulging with focal RIGHT foraminal disc protrusion. Disc protrusion is mi nimally contacting the RIGHT L5 nerve root but not displacing it. No central stenosis. Paravertebral soft tissues are normal. MR/MR lumbar spine wo con* [id number] IMPRESSION: 1. Focal disc protrusion on the RIGHT at L5-S1 with minimal contact on the L5 nerve root. 2. No central stenosis. 3. Facet joint arthritis throughout the lumbar spine. Most significant at L3-4 and L4-5.
== END 2020-11-14 15:30 | disposition home or self-care (01) ==
PROVIDERS: PCP Nurse Practitioner Family; Visit Provider Nurse Practitioner Family
DX: M48.061 Spinal stenosis, lumbar region without neurogenic claudication (principal); M79.604 Pain in right leg; G89.29 Other chronic pain; M51.27 Other intervertebral disc displacement, lumbosacral region; M47.817 Spondylosis without myelopathy or radiculopathy, lumbosacral region
CPT/HCPCS: 90834; 72148

== ENCOUNTER → 2020-11-15 09:00 | Outpatient (BNVA) | payer OTHER, SELFPAY | PROVIDERS: PCP Nurse Practitioner Family; Visit Provider Orthopaedic Surgery | DX: Z01.812 Encounter for preprocedural laboratory examination (principal); Z20.822 Contact with and (suspected) exposure to COVID-19 | CPT/HCPCS: 87635 ==

== ENCOUNTER 2020-11-24 13:52 | Outpatient (CLI) | payer OTHER, SELFPAY ==
--- NOTE | 2020-11-24 13:57 | XR_ITS ---
WS: [id number] Right ankle, 3 views, 11/24/2020 Clinical Data: M25.571 - Pain in right ankle and joints of right foot Comparison: None. Findings: No fractures or dislocations are seen. The ankle mortise is normal. The talus and calcaneus are unrem arkable. No soft tissue swelling over the medial or lateral malleolus is seen. XR/XR ankle RT min 3V* [id number] Impression: Negative right ankle.
--- NOTE | 2020-11-24 13:57 | XR_ITS ---
WS: [id number] Left ankle, 3 views, 11/24/2020 Clinical Data: M25.571 - Pain in left ankle and joints of left foot Comparison: None. Findings: No fractures or dislocations are seen. The ankle mortise is normal. The talus and calcaneus are unrem arkable. No soft tissue swelling over the medial or lateral malleolus is seen. XR/XR ankle LT min 3V* [id number] Impression: Negative left ankle.
== END 2020-11-24 13:53 | disposition home or self-care (01) ==
PROVIDERS: PCP Nurse Practitioner Family; Visit Provider Nurse Practitioner Family
DX: M25.571 Pain in right ankle and joints of right foot (principal); M25.572 Pain in left ankle and joints of left foot
CPT/HCPCS: 73610

== ENCOUNTER → 2020-11-28 09:27 | Outpatient (BNVA) | payer OTHER, SELFPAY | PROVIDERS: PCP Nurse Practitioner Family; Visit Provider Orthopaedic Surgery | DX: Z01.812 Encounter for preprocedural laboratory examination (principal); Z20.822 Contact with and (suspected) exposure to COVID-19 | CPT/HCPCS: 87635 ==

== ENCOUNTER → 2020-11-29 10:20 | Outpatient (BNVA) | payer OTHER, SELFPAY | PROVIDERS: PCP Nurse Practitioner Family; Visit Provider Anesthesiology Pain Medicine | DX: G89.29 Other chronic pain (principal); M54.41 Lumbago with sciatica, right side; M54.42 Lumbago with sciatica, left side; M54.2 Cervicalgia; F17.210 Nicotine dependence, cigarettes, uncomplicated | CPT/HCPCS: 99214 ==

== ENCOUNTER 2020-12-01 06:40 | Day surgery (SDC) | payer OTHER, SELFPAY ==
[2020-11-30 10:44] VITALS: BMI 34.4
[2020-12-01] VITALS (7 sets, daily range): BP systolic 101–116; BP diastolic 62–81; PULSE 71–90; RESP 12–25; TEMP 36.3–36.6; O2SAT 91–95
[2020-12-01 07:11] LABS: Glucose Point of Care 142 mg/dL (70-110)
[2020-12-01] MEDS: sodium chloride 0.9% 1,000 ML 30 ML IV (07:11)
--- NOTE | 2020-12-01 07:49 | W.PM.OPSUD ---
Surgery/Procedure H&P Update DATE OF PROCEDURE: December 01, 2020 DATE H&P PERFORMED: 11/02/20 PREOP DIAGNOSIS: Carpal tunnel syndrome Left PLANNED PROCEDURE: Operation Date: 12/01/20 08:00 Proposed Procedures p right Carpal Tunnel Release [id number] g56.03(Right) - Bro Moore MD
--- NOTE | 2020-12-01 08:36 | P.ANESASSM_ITS ---
Pre-Anesthetic Assessment Pre-Anesthetic Assessment: Height/Weight: Height 1.65 m Weight 93.894 kg Temp Pulse Resp BP Pulse Ox 97.9 F 90 16 101/70 95 12/01/20 07:02 12/01/20 07:02 12/01/20 07:02 12/01/20 07:02 12/01/20 07:02 Preop Diagnosis: Carpal tunnel syndrome Left Proposed Procedure: Operation Date: 12/01/20 08:00 Proposed Procedures p right Carpal Tunnel Release [id number] g56.03(Right) - Bro Moore MD Was Beta Comfort taken within 24 hours: N/A Was Clonidine taken within 24 hours: N/A Last intake: Intake Last Liquid Date 11/30/20 Last Liquid Time 21:00 Last Solid Date 11/30/20 Last Solid Time 21:00 Social: Social History: Tobacco and No alcohol Exam: Pre-Anes Outpt Exam: alert, oriented x 3 and regular rate & rhythm Airway: Submandibular: WNL Cervical ROM: WNL MP: 2 Dentition: False Pulmonary: Pulmonary: Sleep apnea CV/HEM: CV/HEM: HTN GI: GI: GERD Metabolic: Metabolic: Hyperlipidemia and Morbid obesity Musc/skel: Musc/skel: Lower Back Pain and OA/DJD Neuropsych: Neuropsych: Anxiety and Depression Anesthetic Plan: ASA status: 3 Anesthesia: MAC and Regional (specify below) (Aparna preciado) Risk of > 500 ml blood loss (7ml/kg in children): No Meds/Allergies Current Medications: Current Medications Generic Name Dose Route Start Last Admin Trade Name Freq PRN Reason Stop Dose Admin Sodium Chloride 1,000 mls @ 30 ml s/hr 12/01/20 06:45 12/01/20 07:11 Sodium Chloride 0.9% IV 12/02/20 06:44 30 mls/hr .Q24H JOSEPH Administration PFSH Anesthesia PFSH: Medical History Anxiety and depression Axillary lymphadenopathy Benign hypertension Bilateral ankle pain Bilateral wheezing Chronic low back pain Chronic neck pain DDD (degenerative disc disease), cervical DDD (degenerative disc disease), lumbar Diabetes mellitus, type II Diagnosed in 2016 managed by primary care provider. She is on metformin and recently started Rybelsus in November 2019. Diarrhea Enlarged lymph nodes in armpit GERD (gastroesophageal reflux disease) Has never had an endoscopy HTN (hypertension) Diagnosed in 2018 and is on lisinopril managed by her primary care provider. Does not have a hide stretcher hand Hyperlipemia Diagnosed in 2017 and is on medication. Hyperlipemia Low back pain Lower respiratory infection Lumbar stenosis Magnesium deficiency Mixed hyperlipidemia SCHAEFER (nonalcoholic steatohepatitis) No pertinent past medical history Denies asthma, seizures, DVT/PE or thyroid problems. PCP: Nohemi Kwon, SET DESIGNER Numbness and tingling of lower extremity MARIA GUADALUPE (obstructive sleep apnea) Otitis media Postcholecystectomy syndrome Reactive lymphoid hyperplasia Rotator cuff dysfunction Shortness of breath UTI (urinary tract infection), uncomplicated Surgical History H/O vaginal surgery (01/12/20) Posterior colporrhaphy. Performed by Dr. Robles at [facility] in [place], [place] S/P bladder repair x2 ----> 2006--had bladder prolapse and had mesh placed by Dr. Estrada. ----> 2014---patient had pain and had removal of mesh by Dr. Perry In [place] S/P colonoscopy with polypectomy Patient had colonoscopy with removal of two polyps. [address] [facility]. S/P laparoscopic cholecystectomy 1993 S/P wrist surgery --ganglion cyst removed from left wrist Status post hysterectomy 2006--vaginal hysterectomy with bilateral salpingo-oophorectomy done for abnormal uterine bleeding by Dr. Estrada. -Patient states her pathology was benign. Status post tonsillectomy Age of 6 or 7 Status post tubal ligation 1992- procedure via umbilicus Family History Mother Diabetes Grandmother Diabetes maternal Hypertension maternal Brother Diabetes Family/Other Breast cancer paternal aunt, age at diagnosis unknown Sister Ovarian cancer diagnosed in her 30s, mets to uterus Social History Quit status (tobacco): has tried quititng Number of times tried to quit tobacco: 20 Second hand smoke exposure: Yes Alcohol intake: never Other details last substance use: Denies drug use Current occupation: Stay at home History of recent travel: No Additional social history: - Tobacco Use: Started smoking at age 20 and has smoked up to 1 1/2 packs per day since then. Currently smoking one pack per day. Drug Use: Denies Alcohol Use: Denies Work/Study Status: Stay at home mother Data Anesthesia Other Labs: Laboratory Results - last 48 hr 12/01/20 07:09 POC Glucose 142 H Cardiac Studies: No Data to Display
--- NOTE | 2020-12-01 08:42 | P.PCN_ITS ---
PACU note PACU note: VSS, Good respiratory effort, report to BONE PROCESS OPERATOR Post-Anesthesia Exam: awake
--- NOTE | 2020-12-01 08:42 | PM.PACU ---
PACU note PACU note: VSS, Good respiratory effort, report to STOCK FITTER Post-Anesthesia Exam: awake
--- NOTE | 2020-12-01 08:44 | P.OP_ITS ---
Operative Report Date of procedure: December 01, 2020 Pre-op Diagnosis: Carpal tunnel syndrome Right Post-op diagnosis: same Post-op Findings: Same Procedure Done: Right carpal tunnel release Pathology: none sent Surgeon: Bro Moore Anesthesia: Nerve Block (Adductor canal block) Estimated blood loss (mL): 0 Tourniquet time (min): 20 Complications: None Findings: No masses or space-occupying lesions were seen with no masses or space-occupying lesions were seen within the carpal tunnel Condition: stable Disposition: PACU Procedure: Patient was taken to the operating room and anesthesia provided by the anesthesia service. She was prepped and draped with the arm exposed. A t imeout was performed. A 3 cm long incision was made in line with the fourth ray from the distal edge of the carpal tunnel extending proximally. The subcutaneous fat and palmar fascia was divided with a scalpel blade. Under loupe magnification the ulnar neurovascular bundle was identified distally. A hemostat could be passed under the transverse carpal ligament allowing the distal 25% to be divided. A slotted guide was then passed beneath the transverse carpal ligament and the middle 50% divided. Blunt scissors were then passed over the guide freeing the proximal ligament. The tourniquet was deflated. Hemostasis provided with electrocautery. Wound edges were infiltrated with 10 cc of a half percent Marcaine solution. Skin edges were reapproximated with 3-0 Prolene. Sterile dressings were applied. The patient was taken to the recovery room in stable condition
--- NOTE | 2020-12-01 14:59 | ANE.PACU2 ---
Inpatient post-anesthesia follow up: Airway intact: Yes Vital signs: Temperature 97.8 F Pulse Rate 73 Respiratory Rate 16 Blood Pressure 116/81 Pulse Oximetry 94 Oxygen Delivery Me thod Room Air Oxygen Flow Rate Fraction of Inspir ed Oxygen Hydration adequate: Yes Nausea and vomiting: No Pain level: 1 Mental status: Baseline
== END 2020-12-01 09:30 | disposition home or self-care (01) ==
PROVIDERS: PCP Nurse Practitioner Family; Visit Provider Orthopaedic Surgery
PROC: (CPT 64721; principal; 2020-12-01 08:00)
DX: G56.01 Carpal tunnel syndrome, right upper limb (principal); I10 Essential (primary) hypertension; K21.9 Gastro-esophageal reflux disease without esophagitis; E78.5 Hyperlipidemia, unspecified; E66.01 Morbid (severe) obesity due to excess calories; Z68.34 Body mass index [BMI] 34.0-34.9, adult; F41.9 Anxiety disorder, unspecified; F32.9 Major depressive disorder, single episode, unspecified; G47.33 Obstructive sleep apnea (adult) (pediatric)
CPT/HCPCS: 64721; 36416; 82962; 95909; J0690; J2704; J3010; J3490; J7030

== ENCOUNTER 2020-12-08 20:00 | Outpatient (CLI) | payer OTHER, SELFPAY | END 2020-12-08 20:01 | disposition home or self-care (01) | LOC: SLEEP 12-09 10:58 | PROVIDERS: PCP Nurse Practitioner Family; Visit Provider Nurse Practitioner Family | DX: G47.33 Obstructive sleep apnea (adult) (pediatric) (principal) | CPT/HCPCS: 95810 ==

== ENCOUNTER → 2020-12-27 11:26 | Outpatient (BNVA) | payer OTHER, SELFPAY | PROVIDERS: PCP Nurse Practitioner Family; Visit Provider Anesthesiology Pain Medicine | DX: G89.29 Other chronic pain (principal); M47.816 Spondylosis without myelopathy or radiculopathy, lumbar region; M54.2 Cervicalgia; Z79.891 Long term (current) use of opiate analgesic | CPT/HCPCS: 99214 ==

== ENCOUNTER 2021-01-11 12:51 | Outpatient (CLI) | payer OTHER, SELFPAY ==
--- NOTE | 2021-01-11 12:59 | XR_ITS ---
WS: [id number] Lateral views of cervical spine in the flexion, extension and neutral positions. 01/11/2021 Clinical Data: M50.30 - Other cervical disc degeneration, unspecified ce... Comparison: Lateral cervical spine, 08/17/2020. Findings: There is osteoarthritis of the C5-C7 vertebral bodies with disc space narrowing at C5-C6 and C6-C7. T here is no prevertebral soft tissue swelling. On flexion and extension there is no limitation of joelle on or subluxation. No compression fractures are seen. XR/XR cervical spine fl/ex [id number] Impression: 1. Osteoarthritis at C5-C7 vertebral bodies with accompanying disc narrowing at C5-C6 and C6-C7. 2. No limitation of motion or subluxation on flexion or extension.
== END 2021-01-11 12:52 | disposition home or self-care (01) ==
LOC: RAD 12:55
PROVIDERS: PCP Nurse Practitioner Family; Visit Provider Nurse Practitioner Family
DX: M50.30 Other cervical disc degeneration, unspecified cervical region (principal); M47.812 Spondylosis without myelopathy or radiculopathy, cervical region
CPT/HCPCS: 36416; 72040; 82962

== ENCOUNTER 2021-01-30 10:18 | Outpatient (CLI) | payer OTHER, SELFPAY ==
--- NOTE | 2021-01-30 10:29 | USCV_ITS ---
Corie Dinah Age: 50 Gender: F : 1970 Exam Date: 01/30/2021 10:48 Ordering Phys: Lulu Torres MD ([email or web address]) Technologist: Delaney Guerrero Exam Location: [facility] [place] Indication: FATIGUE, Dyspnea on exertion BP: 106 / 48 HR: 72 Rhythm: Sinus Technical Quality: Adequate MEASUREMENTS (Male / Female) Normal Values 2D ECHO LV Diastolic Diameter PLAX 4.5 cm 4.2 - 5.9 / 3.9 - 5.3 cm LV Systolic Diameter PLAX 2.6 cm LV Chamber Size 4.0 cm IVS Diastolic Thickness 1.1 cm 0.6 - 1.0 / 0.6 - 0.9 cm IVS Systolic Thickness 1.5 cm LVPW Diastolic Thickness 1.2 cm 0.6 - 1.0 / 0.6 - 0.9 cm LVPW Systolic Thickness 2.3 cm RV Chamber Size 2.9 cm LVOT Diameter 2.1 cm LV Ejection Fraction 2D Teich 73.8 % LV Ejection Fraction MOD 2C 68.8 % LV Ejection Fraction 2C AL 71.3 % LA Diameter 3.4 cm LA Width 2.7 cm LA Height 4.2 cm RA Width 3.0 cm RA Height 5.3 cm Aorta at Sinotubular Diameter 3.1 cm M-MODE Aortic Annulus Diameter 3.2 cm LA Ao Ratio MM 1.1 DOPPLER AV Peak Velocity 146.0 cm/s LVOT Peak Velocity 108.0 cm/s AV Area Cont Eq vti 2.8 cm squared AV Area Cont Eq pk 2.5 cm squared MV Area PHT 3.9 cm squared Mitral E to A Ratio 1.3 MV E' Velocity 61.5 cm/s Mitral E to MV E' Ratio 9.9 Mitral E to LV E' Lateral Ratio 9.2 Mitral E to LV E' Septal Ratio 10.7 TR Peak Velocity 272.3 cm/s TR Peak Gradient 29.7 mmHg TR Mean Velocity 213.3 cm/s TR Mean Gradient 19.9 mmHg TR Velocity Time Integral 102.6 cm TV Peak E Velocity 75.0 cm/s Right Atrial Pressure 3.0 mmHg Pulmonary Artery Systolic Pressu 32.7 mmHg PV Peak Velocity 84.0 cm/s RV Acceleration Time 0.1 s RV Ejection Time 0.4 s RV AcT/ET 0.3 FINDINGS Left Ventricle Normal left ventricular size, systolic function and wall thickness, with no regional wall motion abnormalities. Left ventricular ejection fraction is estimated at 70 %. Normal diastolic function. Right Ventricle Normal right ventricular size and systolic function. Right ventricular systolic pressure 30 mmHg. Right Atrium Normal right atrial size. Right atrial pressure estimated at 3 mmHg. Left Atrium Normal left atrial size. Mitral Valve Structurally normal mitral valve. No mitral valve stenosis. Trace mitral valve regurgitation. Aortic Valve Aortic valve not well visualized. Probably trileaflet aortic valve. No aortic valve stenosis. No aortic valve regurgitation. Tricuspid Valve Structurally normal tricuspid valve. No tricuspid valve stenosis. Mild tricuspid valve regurgitation. Pulmonic Valve Trace pulmonary valve regurgitation. Pericardium No pericardial effusion. Aorta Normal size aortic root and proximal ascending aorta. Normal- sized inferior vena cava with normal respiratory variations. CONCLUSIONS 1. Normal left ventricular size, systolic function and wall thickness, with no regional wall motion abnormalities. Left ventricular ejection fraction is estimated at 70 %. Normal diastolic function. 2. Normal right ventricular size and systolic function. 3. Pulmonary artery pressure estimated at 30 mmHg. 4. Right atrial pressure estimated at 3 mmHg. 5. Mild tricuspid valve regurgitation. 6. No prior similar studies to compare. Lulu Torres MD (Electronically Signed) Final Date: 01 February 2021 13:14 S
== END 2021-01-30 10:19 | disposition home or self-care (01) ==
LOC: US 10:21
PROVIDERS: PCP Nurse Practitioner Family; Visit Provider Nurse Practitioner Family
DX: R53.83 Other fatigue (principal); Z86.79 Personal history of other diseases of the circulatory system; I07.1 Rheumatic tricuspid insufficiency
CPT/HCPCS: 81003; 93306

== ENCOUNTER 2021-02-13 11:40 | Outpatient (CLI) | payer OTHER, SELFPAY ==
[2021-02-01 11:52] VITALS: BP 108/73; BMI 35.0
--- NOTE | 2021-02-13 11:55 | CT_ITS ---
WS: [id number] LDCT LUNG CANCER SCREENING HISTORY: screening for lung cancer TECHNIQUE: Axial imaging performed from the apices to 1 cm below the costophrenic angles. Coronal and sagittal reformats are submitted with axial MIP series. All CT scans at [facility] use at least one of these dose optimization techniques: automated exposure control; mA and/or kV adjustment per patient size (includes targeted exams where dose is matched to clinical indication); or iterativ e reconstruction. DLP: 51.81 mGy.cm DIvol: 1.58 mGy COMPARISON: None available. Diagnostic quality: Limited by body habitus. Lung Nodules: None. Lungs: Partial atelectasis of the RIGHT middle lobe. There is narrowing of the proximal bronchus inte rmedius. Additional haziness and groundglass attenuation over both lungs probably related to history of smoking. Heart: Normal size heart. No pericardial effusion. Other findings: Small hiatal hernia. Prior cholecystectomy. CT/CT lung screening [id number] IMPRESSION: LUNG-RADS: 1S-Negative with Significant Findings FOLLOW UP: 12 Month: Continue annual screening with LDCT OTHER FINDINGS (S MODIFIER): Partial atelectasis RIGHT middle lobe needs furthe r evaluation. Recommend follow-up chest CT with IV contrast at this time to shalom luate for possible obstructing lesion or adenopathy centrally. Otherwise bronch oscopy may be necessary.
== END 2021-02-13 11:41 | disposition home or self-care (01) ==
LOC: RAD 11:43
PROVIDERS: PCP Nurse Practitioner Family; Visit Provider Internal Medicine Pulmonary Disease
DX: Z12.2 Encounter for screening for malignant neoplasm of respiratory organs (principal); F17.210 Nicotine dependence, cigarettes, uncomplicated; J98.11 Atelectasis
CPT/HCPCS: 71271

== ENCOUNTER → 2021-02-16 08:57 | Outpatient (BNVA) | payer OTHER, SELFPAY ==
[2021-02-01 11:52] VITALS: BP 108/73; BMI 35.0
== END ==
PROVIDERS: PCP Nurse Practitioner Family; Visit Provider Internal Medicine Pulmonary Disease
DX: Z01.812 Encounter for preprocedural laboratory examination (principal); Z20.822 Contact with and (suspected) exposure to COVID-19
CPT/HCPCS: 87635

== ENCOUNTER 2021-02-17 08:55 | Outpatient (CLI) | payer OTHER, SELFPAY ==
[2021-02-01 11:52] VITALS: BP 108/73; BMI 35.0
--- NOTE | 2021-02-17 09:30 | MM_ITS ---
WS: [id number] DIAGNOSTIC BILATERAL DIGITAL MAMMOGRAM WITH CAD HISTORY: Abnormality seen on a prior mammogram from 06/11/2018. This mammogram was from an outside [facility]. COMPARISON: 06/11/2018 TECHNIQUE: Bilateral craniocaudad, mediolateral oblique, and mediolateral views are submitted. Spot c ompression RIGHT CC, LEFT CC and RIGHT MLO. Computer aided detection utilized. Breast composition: There are scattered areas of fibroglandular density. Since the prior examination greater than 2 years ago there is been no interval change in appearance the breasts. Benign appearing lymph node in the medial LEFT breast. No suspicious mass or calcification. MM/[place] [id number] IMPRESSION: BI-RADS: 2-Benign FOLLOW UP: 1 Year Follow-up
== END 2021-02-17 08:56 | disposition home or self-care (01) ==
PROVIDERS: PCP Nurse Practitioner Family; Visit Provider Nurse Practitioner Family
DX: R92.8 Other abnormal and inconclusive findings on diagnostic imaging of breast (principal)
CPT/HCPCS: 77066

== ENCOUNTER → 2021-02-20 08:18 | Outpatient (BNVA) | payer OTHER, SELFPAY ==
[2021-02-01 11:52] VITALS: BP 108/73; BMI 35.0
== END ==
PROVIDERS: PCP Nurse Practitioner Family; Visit Provider Specialist
DX: M54.40 Lumbago with sciatica, unspecified side (principal); G89.29 Other chronic pain; M51.36 Other intervertebral disc degeneration, lumbar region
CPT/HCPCS: 95861

== ENCOUNTER 2021-02-22 12:33 | Outpatient (CLI) | payer OTHER, SELFPAY ==
[2021-02-01 11:52] VITALS: BP 108/73; BMI 35.0
--- NOTE | 2021-02-22 13:40 | PFTS_ITS ---
Date of Study:02/22/21 Date of Dictation: MECHANICS: Forced vital capacity (FVC) is reduced. Forced expiratory volume in one second (FEV1) is reduced. FEV1/FVC is reduced. FLOW VOLUME LOOP: Reduced flow at all lung volumes. LUNG VOLUMES: Total lung capacity (TLC) is reduced. Residual volume (RV) is borderline normal. DIFFUSING CAPACITY FOR CARBON MONOXIDE: Moderately reduced. INTERPRETATION: The postbronchodilator spirometry is consistent with severe airflow obstruction. There is no significant postbronchodilator response. Lung volumes are consistent with restrictive lung disease. The patient most likely has a combined obstructive and restrictive ventilatory process. Gas exchange (DLCO) is moderately reduced. MTDD
== END 2021-02-22 12:34 | disposition home or self-care (01) ==
LOC: RT 12:34
PROVIDERS: PCP Nurse Practitioner Family; Visit Provider Internal Medicine Pulmonary Disease
DX: F17.200 Nicotine dependence, unspecified, uncomplicated (principal); R06.00 Dyspnea, unspecified; J44.9 Chronic obstructive pulmonary disease, unspecified
CPT/HCPCS: 94060; 94618; 94726; 94729; J7611

== ENCOUNTER 2021-03-03 06:00 | Outpatient (RCR) | payer OTHER, SELFPAY ==
[2021-02-01 11:52] VITALS: BP 108/73; BMI 35.0
== END 2021-03-05 23:59 | disposition home or self-care (01) ==
LOC: WPT 06:00
PROVIDERS: PCP Nurse Practitioner Family; Referring Provider Nurse Practitioner Family; Visit Provider Nurse Practitioner Family
DX: G89.29 Other chronic pain (principal); M50.30 Other cervical disc degeneration, unspecified cervical region; M25.511 Pain in right shoulder
CPT/HCPCS: 97110; 97140; 97162; 97530

== ENCOUNTER 2021-03-06 06:00 | Outpatient (RCR) | payer OTHER, SELFPAY ==
[2021-02-01 11:52] VITALS: BP 108/73; BMI 35.0
== END 2021-03-23 23:59 | disposition home or self-care (01) ==
LOC: WPT 06:00
PROVIDERS: PCP Nurse Practitioner Family; Referring Provider Nurse Practitioner Family; Visit Provider Nurse Practitioner Family
DX: G89.29 Other chronic pain (principal); M50.30 Other cervical disc degeneration, unspecified cervical region; M25.511 Pain in right shoulder
CPT/HCPCS: 97110; 97140; 97530

== ENCOUNTER 2021-04-03 08:53 | Outpatient (CLI) | payer OTHER, SELFPAY ==
[2021-02-01 11:52] VITALS: BP 108/73; BMI 35.0
[2021-04-03 09:32] VITALS: BMI 33.0
--- NOTE | 2021-04-03 09:39 | ECG_ITS ---
[facility] Test Date: 2021-04-03 Pat Name: Dinah Fontenot Department: Room: Gender: Female Auto Body Technician: Viridiana Mcguire : 1970 Requested By: Lulu Torres Order Number: [id number] Alex MD: Lulu Torres M.D. Interpretive Statements NAME OF STUDY: LEXISCAN SESTAMIBI STRESS TEST INDICATION: Chest Pain PROCEDURE: At the baseline, the blood pressure was 104/71 mmHg with a heart rate of 75 bpm. The electrocardiogram showed normal sinus rhythm, right axis deviation. Normal ST and T's. The Lexiscan was infused over a period of 20 seconds. A total of 0.4 milligrams of Lexiscan was infused. The stress phase was continued for a total of 5 minutes. Heart rate at the end of the stress phase was 92 bpm with a blood pressure of 93/69 mmHg. The EKG at the peak infusion revealed sinus rhythm with no significant ST-T wave changes. The study was terminated to protocol completion. Sestamibi was injected 20 seconds after the Lexiscan infusion. Blood pressure at the end of the recovery phase was 102/74 mmHg with a heart rate of 81 beats per minute. CONCLUSION: 1. No significant EKG changes with the LexiScan infusion. 2. No LexiScan induced chest pain or cardiac arrhythmia. 3. Normal blood pressure and heart rate response. 4. Sestamibi/sestamibi perfusion scan pending; see separate report. Electronically Signed On 04-04-2021 18:06:44 DIRECTOR OF ASSISTED LIVING by Lulu Torres M.D. [id number]
--- NOTE | 2021-04-03 09:40 | NMCV_ITS ---
NM erika perf SPECT r/s* [id number] Dinah Fontenot Age: 50 Gender: F : 1970 Exam Date: 04/03/2021 09:40 Ordering Phys: Lulu Torres MD ([email or web address]) Technologist: PAIGE Krueger Exam Location: [facility] Indications: Exertional dyspnea STRESS TEST Please see separate stress test report in [facility] for full findings IMAGE PROTOCOL Rest/Stress 1 Lexiscan Day Radiopharmaceutical Dose (mCi) Administration Site Administered by Rest: Tc-99m 10.4 IV PAIGE Krueger Sestamibi Stress:Tc-99m 32.4 IV PAIGE Alcantar Sestamibi Rest: 03-Apr-2021 60 Discovery 630 Stress: 03-Apr-2021 30 Discovery 630 0.4mg Lexiscan. Images obtained in supine and prone position. SPECT RESULTS Technical Quality: Good Raw Data Analysis: Normal, Breast and some diaphragmatic attenuation artifact Image Corrections: No attenuation or motion correction applied Summed Stress Score: 3 Summed Rest Score: 0 Summed Difference Score: 3 PERFUSION FINDINGS Small sized perfusion abnormality of mild severity of mid inferolateral and apical lateral wall on rest with subtle reversibility on supine stress images but improved tracer uptake on prone stress images. This likely represents attenuation artifact. FUNCTIONAL RESULTS (calculated via Gated SPECT) Stress Image LV EF (%): 74 Stress EDV (mL):99 TID: 1.18 Stress ESV (mL):26 FUNCTIONAL FINDINGS: The left ventricle is normal in size. Transient Ischemia Dilatation of 1.2. There is normal left ventricular systolic function. The left ventricular ejection fraction is normal with a value of 74%. There is normal left ventricular wall thickening with no regional wall motion abnormality. IMPRESSIONS 1. Myocardial perfusion imaging is normal. Attenuation artifact noted in mid inferolateral and apical lateral shepard. 2. Overall left ventricular systolic function is normal without regional wall motion abnormalities. 3. The left ventricular ejection fraction is normal with a value of 74%. 4. Transient ischemic dilation index mildly increased at 1.2. This may represent hypertensive/subendocardial ischemia. Clinical correlation is advised. 5. No prior similar studies to compare. Lulu Torres MD (Electronically Signed) Final Date: 06 April 2021 10:20 S
[2021-04-03] MEDS: regadenoson 0.4 Mg/5 ml Syringe IVP (11:10)
[2021-04-03 11:12] VITALS: BP 93/69; PULSE 99
== END 2021-04-03 08:54 | disposition home or self-care (01) ==
PROVIDERS: PCP Nurse Practitioner Family; Visit Provider Internal Medicine Cardiovascular Disease
DX: R06.09 Other forms of dyspnea (principal); R07.9 Chest pain, unspecified
CPT/HCPCS: 78452; 93017; A9500; J2785

== ENCOUNTER → 2021-04-11 09:13 | Outpatient (BNVA) | payer OTHER, SELFPAY ==
[2021-02-01 11:52] VITALS: BP 108/73; BMI 35.0
== END ==
PROVIDERS: PCP Nurse Practitioner Family; Visit Provider Anesthesiology Pain Medicine
DX: G89.29 Other chronic pain (principal); M51.17 Intervertebral disc disorders with radiculopathy, lumbosacral region; M47.816 Spondylosis without myelopathy or radiculopathy, lumbar region; M54.2 Cervicalgia; M79.601 Pain in right arm; M79.602 Pain in left arm; F17.200 Nicotine dependence, unspecified, uncomplicated
CPT/HCPCS: 99214

== ENCOUNTER → 2021-06-20 09:13 | Outpatient (BNVA) | payer OTHER, MEDICAID, SELFPAY ==
[2021-02-01 11:52] VITALS: BP 108/73; BMI 35.0
== END ==
PROVIDERS: PCP Nurse Practitioner Family; Visit Provider Nurse Practitioner Family
DX: E55.9 Vitamin D deficiency, unspecified (principal); E11.9 Type 2 diabetes mellitus without complications; E78.5 Hyperlipidemia, unspecified; I10 Essential (primary) hypertension; R53.83 Other fatigue
CPT/HCPCS: 80053; 80061; 81003; 82306; 83036; 84443; 85025

== ENCOUNTER → 2021-06-23 11:03 | Outpatient (BNVA) | payer MEDICAID, SELFPAY ==
[2021-02-01 11:52] VITALS: BP 108/73; BMI 35.0
== END ==
PROVIDERS: PCP Nurse Practitioner Family; Visit Provider Psychiatry & Neurology Psychiatry
DX: F41.1 Generalized anxiety disorder (principal); F33.2 Major depressive disorder, recurrent severe without psychotic features; F17.200 Nicotine dependence, unspecified, uncomplicated; F43.12 Post-traumatic stress disorder, chronic
CPT/HCPCS: 99214

== ENCOUNTER → 2021-07-10 08:58 | Outpatient (BNVA) | payer MEDICAID, SELFPAY ==
[2021-02-01 11:52] VITALS: BP 108/73; BMI 35.0
== END ==
PROVIDERS: PCP Nurse Practitioner Family; Visit Provider Anesthesiology Pain Medicine
DX: G89.29 Other chronic pain (principal); M54.40 Lumbago with sciatica, unspecified side; M54.2 Cervicalgia; M79.601 Pain in right arm; M79.602 Pain in left arm; F17.210 Nicotine dependence, cigarettes, uncomplicated
CPT/HCPCS: 87635; 99214

== ENCOUNTER → 2021-07-11 10:08 | Outpatient (BNVA) | payer MEDICAID, SELFPAY ==
[2021-02-01 11:52] VITALS: BP 108/73; BMI 35.0
== END ==
PROVIDERS: PCP Nurse Practitioner Family; Visit Provider Internal Medicine Cardiovascular Disease
DX: R53.83 Other fatigue (principal); Z86.79 Personal history of other diseases of the circulatory system; R06.00 Dyspnea, unspecified; I10 Essential (primary) hypertension; E78.2 Mixed hyperlipidemia; E11.9 Type 2 diabetes mellitus without complications; F17.210 Nicotine dependence, cigarettes, uncomplicated
CPT/HCPCS: 99214

== ENCOUNTER → 2021-07-17 09:41 | Outpatient (BNVA) | payer MEDICAID, SELFPAY ==
[2021-02-01 11:52] VITALS: BP 108/73; BMI 35.0
== END ==
PROVIDERS: PCP Nurse Practitioner Family; Visit Provider Surgery
DX: Z20.822 Contact with and (suspected) exposure to COVID-19 (principal)
CPT/HCPCS: 87635

== ENCOUNTER 2021-07-21 06:28 | Day surgery (SDC) | payer MEDICAID, SELFPAY ==
[2021-02-01 11:52] VITALS: BP 108/73; BMI 35.0
[2021-07-10 13:40] VITALS: BMI 39.6
--- NOTE | 2021-07-13 12:48 | ANE.PACU2 ---
Inpatient post-anesthesia follow up: Airway intact: Yes Vital signs: Temperature Pulse Rate Respiratory Rate Blood Pressure Pulse Oximetry Oxygen Delivery Me thod Oxygen Flow Rate Fraction of Inspir ed Oxygen Hydration adequate: Yes Nausea and vomiting: No Pain level: 1 Mental status: Baseline
--- NOTE | 2021-07-21 06:47 | ANES.PREANE2 ---
Pre-Anesthetic Assessment Height/Weight: Height 1.68 m Weight 104.78 kg Preop Diagnosis: Carpal tunnel syndrome Right Operation Date: 07/13/21 12:45 Proposed Procedures p Colonoscopy 04026/z86.010(Not Applicable) - Gopal Gudino MD Operation Date: 07/21/21 08:00 Proposed Procedures p Colonoscopy 40160/z86.010(Not Applicable) - Gopal Gudino MD Familial anesthetic complications: none Was Beta Comfort taken within 24 hours: N/A (takes at 0800) Was Clonidine taken within 24 hours: N/A Last intake: > 8 hrs Social Tobacco Airway Mallampati: Class I Dentition: false Pulmonary Chronic Obstructive Pulmonary Disease, Sleep Apnea and Shortness of Breath CV/HEM Hypertension None reported Hepatic SCHAEFER GI Gastroesophageal Reflux Disease Metabolic Diabetes Mellitus and Morbid Obesity Musc/skel stenosis spinal Neuropsych None reported Anesthetic Plan ASA status: 3 Anesthesia: MAC Risk of > 500 ml blood loss (7ml/kg in children): No Medications/Allergies Home Medications Medication Instructions Recorded Confirmed Last Taken Type cholecalciferol (vitamin D3) 100 100 mcg PO DAILY 12/07/19 07/19/21 11/30/20 History mcg (4,000 unit) tablet omega-3 fatty acids 1,000 mg 2,000 mg PO DAILY 30 Days #60 cap 06/06/20 07/19/21 11/30/20 Rx capsule folic acid 800 mcg tablet 0.8 mg PO DAILY 09/13/20 07/19/21 11/30/20 History potassium gluconate 595 mg (99 mg) 595 mg PO DAILY 09/13/20 07/19/21 11/30/20 History tablet sennosides 8.6 mg tablet (Natural 8.6 mg PO BID 11/29/20 07/19/21 11/30/20 History Senna Laxative) estradiol (Estrace) 0.5 g VAGINAL .twice weekly #42.5 12/06/20 07/19/21 Unknown Rx gm magnesium oxide 400 mg (241.3 mg 400 mg PO DAILY #90 tab 12/06/20 07/19/21 Unknown Rx magnesium) tablet simvastatin 20 mg tablet 20 mg PO BEDTIME #90 tab 03/20/21 07/19/21 Unknown Rx fluticasone 500 mcg-salmeterol 50 1 inh INHALATION BID #60 ea 04/10/21 07/19/21 Unknown Rx mcg/dose blistr powdr for inhalation (Advair Diskus) gabapentin 600 mg tablet 600 mg PO TID #90 tab 04/11/21 07/19/21 Unknown Rx tizanidine 4 mg tablet 4 mg PO BID PRN #60 tab 04/11/21 07/19/21 Unknown Rx omeprazole 20 mg capsule,delayed 20 mg PO DAILY #90 cap 04/19/21 07/19/21 Unknown Rx release umeclidinium 62.5 mcg/actuation 1 inh INHALATION DAILY #30 ea 06/16/21 07/19/21 Unknown Rx blister powder for inhalation (Incruse Ellipta) albuterol sulfate 90 mcg/actuation 1 inh INHALATION QID PRN #8.5 g 06/21/21 07/19/21 Unknown Rx aerosol inhaler (Ventolin HFA) celecoxib 200 mg capsule (Celebrex) 200 mg PO DAILY #30 cap 07/10/21 07/19/21 Unknown Rx pioglitazone 15 mg tablet (Actos) 15 mg PO DAILY 07/10/21 07/19/21 Unknown History lisinopril 10 mg tablet 5 mg PO DAILY #90 tab 07/11/21 07/19/21 Unknown Rx metoprolol tartrate 25 mg tablet 25 mg PO BID #60 tab 07/11/21 07/19/21 Unknown Rx liraglutide 0.6 mg/0.1 mL (18 mg/3 See Rx Instructions SUBCUT 07/14/21 07/19/21 Unknown Rx mL) subcutaneous pen injector .COMPLEX #6 ml (Victoza 2-Lawrence) pen needle, diabetic 32 gauge x #100 ea 07/14/21 07/19/21 Unknown Rx 5/32 (1st Tier Unifine Pentips) oxybutynin chloride 10 mg 10 mg PO DAILY #90 tab 07/17/21 07/19/21 Unknown Rx tablet,extended release 24 hr bupropion HCl 300 mg 24 hr tablet, 300 mg PO QAM #30 tab 07/18/21 07/19/21 Unknown Rx extended release (Wellbutrin XL) paroxetine HCl 40 mg tablet (Paxil) 80 mg PO DAILY #60 tab 07/18/21 07/19/21 Unknown Rx prazosin 5 mg capsule 5 mg PO .HS #30 cap 07/18/21 07/19/21 Unknown Rx sitagliptin 50 mg tablet (Januvia) 50 mg PO DAILY #90 tab 07/18/21 07/19/21 Unknown Rx trazodone 100 mg tablet 300 mg PO .HS PRN #90 tab 07/18/21 07/19/21 Unknown Rx Allergies Allergy/AdvReac Type Severity Reaction Status Date / Time tramadol [From Ultram] AdvReac Intermediate Nausea, Verified 07/19/21 10:36 drowsiness PFSH Anesthesia Medical History (Updated 07/14/21 @ 14:38 by NATHALIE Patterson) Anxiety and depression Axillary lymphadenopathy Benign hypertension Bilateral ankle pain Bilateral wheezing Breast cancer screening by mammogram Carotid bruit Chronic low back pain Chronic neck pain Colon polyps COPD (chronic obstructive pulmonary disease) DDD (degenerative disc disease), cervical DDD (degenerative disc disease), lumbar Diabetes mellitus, type II Diagnosed in 2016 managed by primary care provider. She is on metformin and recently started Rybelsus in November 2019. Diarrhea Enlarged lymph nodes in armpit GERD (gastroesophageal reflux disease) Has never had an endoscopy H/O cardiac disorder HTN (hypertension) Diagnosed in 2017 and is on lisinopril managed by her primary care provider. Does not have a sheet metal contractor Hyperlipemia Diagnosed in 2017 and is on medication. Hyperlipemia Low back pain Lower respiratory infection Lumbar stenosis Magnesium deficiency Metabolic syndrome Mixed hyperlipidemia SCHAEFER (nonalcoholic steatohepatitis) No pertinent past medical history Denies asthma, seizures, DVT/PE or thyroid problems. PCP: NATHALIE Meyer Numbness and tingling of lower extremity Obesity (BMI 30-39.9) MARIA GUADALUPE (obstructive sleep apnea) Otitis media Postcholecystectomy syndrome Psychiatric care Reactive lymphoid hyperplasia Right shoulder pain Rotator cuff dysfunction Shortness of breath Toenail deformity Urinary incontinence UTI (urinary tract infection), uncomplicated Surgical History H/O vaginal surgery (01/12/20) Posterior colporrhaphy. Performed by Dr. Robles at [facility] in [place], [place] S/P bladder repair x2 ----> 2006--had bladder prolapse and had mesh placed by Dr. Estrada. ----> 2014---patient had pain and had removal of mesh by Dr. Perry In [place] S/P colonoscopy with polypectomy Patient had colonoscopy with removal of two polyps. 2013 at [facility]. S/P laparoscopic cholecystectomy 1993 S/P wrist surgery --ganglion cyst removed from left wrist Status post hysterectomy 2006--vaginal hysterectomy with bilateral salpingo-oophorectomy done for abnormal uterine bleeding by Dr. Estrada. -Patient states her pathology was benign. Status post tonsillectomy Age of 6 or 7 Status post tubal ligation 1992- procedure via umbilicus Family History Mother Diabetes Grandmother Diabetes maternal Hypertension maternal Brother Diabetes Family/Other Breast cancer paternal aunt, age at diagnosis unknown Sister Ovarian cancer diagnosed in her 30s, mets to uterus Social History Smoking and tobacco status: current every day smoker cigarettes Packs smoked per day: 0.5 Years cigarettes smoked: 30 Quit status (tobacco): has tried quititng Number of times tried to quit tobacco: 20 Second hand smoke exposure: Yes Alcohol intake: never Other details last substance use: Denies drug use Current occupation: Stay at home History of recent travel: No Additional social history: - Tobacco Use: Started smoking at age 20 and has smoked up to 1 1/2 packs per day since then. Currently smoking one pack per day. Drug Use: Denies Alcohol Use: Denies Work/Study Status: Stay at home mother Data Anesthesia Cardiac Studies: Echocardiogram 01/30/21 Sestamibi Stress Test (Cardiology) 04/03/21
[2021-07-21 07:05] VITALS: BP 141/92; PULSE 60; RESP 18; TEMP 36.5; O2SAT 97
[2021-07-21] MEDS: sodium chloride 0.9% 1,000 ML 30 ML IV (07:11)
--- NOTE | 2021-07-21 07:45 | W.PM.OPSUD ---
Surgery/Procedure H&P Update DATE OF PROCEDURE: July 21, 2021 DATE H&P PERFORMED: 07/03/21 CHANGES TO PREVIOUS DOCUMENTATION: none PREOP DIAGNOSIS: History of colon polyps PRIMARY INDICATION FOR PROCEDURE: History of colon polyps PLANNED PROCEDURE: Operation Date: 07/13/21 12:45 Proposed Procedures p Colonoscopy 65029/z86.010(Not Applicable) - Gopal Gudino MD Operation Date: 07/21/21 08:00 Proposed Procedures p Colonoscopy 51047/z86.010(Not Applicable) - Gopal Gudino MD
[2021-07-21 08:25] VITALS: BP 114/71; PULSE 80; RESP 16; TEMP 36.1; O2SAT 95
--- NOTE | 2021-07-21 08:26 | ANE.PACU2 ---
Inpatient post-anesthesia follow up: Airway intact: Yes Vital signs: Temperature 97.7 F Pulse Rate 60 Respiratory Rate 18 Blood Pressure 141/92 Pulse Oximetry 97 Oxygen Delivery Me thod Room Air Oxygen Flow Rate Fraction of Inspir ed Oxygen Hydration adequate: Yes Nausea and vomiting: No Pain level: 1 Mental status: Baseline
[2021-07-21 08:33] VITALS: BP 103/87; PULSE 81; RESP 18; O2SAT 94
== END 2021-07-21 08:43 | disposition home or self-care (01) ==
PROVIDERS: PCP Nurse Practitioner Family; Visit Provider Surgery
PROC: 0DJD8ZZ Inspection of Lower Intestinal Tract, Via Natural or Artificial Opening Endoscopic (ICD-10-PCS; CPT 45378; principal; 2021-07-21 08:00)
DX: Z86.010 Personal history of colon polyps (principal); K57.30 Diverticulosis of large intestine without perforation or abscess without bleeding; J44.9 Chronic obstructive pulmonary disease, unspecified; E11.9 Type 2 diabetes mellitus without complications; I10 Essential (primary) hypertension; E78.5 Hyperlipidemia, unspecified; E78.2 Mixed hyperlipidemia; G47.33 Obstructive sleep apnea (adult) (pediatric); F17.210 Nicotine dependence, cigarettes, uncomplicated; K21.9 Gastro-esophageal reflux disease without esophagitis; E66.01 Morbid (severe) obesity due to excess calories; Z68.37 Body mass index [BMI] 37.0-37.9, adult
CPT/HCPCS: 45378; J2704; J7030

== ENCOUNTER → 2021-07-25 14:55 | Outpatient (BNVA) | payer MEDICAID, SELFPAY ==
[2021-02-01 11:52] VITALS: BP 108/73; BMI 35.0
== END ==
PROVIDERS: PCP Nurse Practitioner Family; Visit Provider Anesthesiology Pain Medicine
DX: G89.29 Other chronic pain (principal); E11.9 Type 2 diabetes mellitus without complications; F17.210 Nicotine dependence, cigarettes, uncomplicated; Z79.84 Long term (current) use of oral hypoglycemic drugs; M54.16 Radiculopathy, lumbar region
CPT/HCPCS: 36416; 64483; 64484; 82962; J1100; J3490

== ENCOUNTER → 2021-07-26 08:16 | Outpatient (BNVA) | payer MEDICAID, SELFPAY ==
[2021-02-01 11:52] VITALS: BP 108/73; BMI 35.0
== END ==
PROVIDERS: PCP Nurse Practitioner Family; Visit Provider Social Worker
DX: F41.9 Anxiety disorder, unspecified (principal); F32.9 Major depressive disorder, single episode, unspecified; F41.1 Generalized anxiety disorder; F33.2 Major depressive disorder, recurrent severe without psychotic features; F43.12 Post-traumatic stress disorder, chronic
CPT/HCPCS: 90834

== ENCOUNTER → 2021-07-27 13:25 | Outpatient (BNVA) | payer MEDICAID, SELFPAY ==
[2021-02-01 11:52] VITALS: BP 108/73; BMI 35.0
== END ==
PROVIDERS: PCP Nurse Practitioner Family; Visit Provider Internal Medicine Pulmonary Disease
DX: J44.9 Chronic obstructive pulmonary disease, unspecified (principal); J98.11 Atelectasis; G47.33 Obstructive sleep apnea (adult) (pediatric); Z12.2 Encounter for screening for malignant neoplasm of respiratory organs; Z71.6 Tobacco abuse counseling; F17.210 Nicotine dependence, cigarettes, uncomplicated; E11.8 Type 2 diabetes mellitus with unspecified complications; K21.9 Gastro-esophageal reflux disease without esophagitis; E78.5 Hyperlipidemia, unspecified; I10 Essential (primary) hypertension
CPT/HCPCS: 99214

== ENCOUNTER → 2021-08-08 10:14 | Outpatient (BNVA) | payer MEDICAID, SELFPAY ==
[2021-02-01 11:52] VITALS: BP 108/73; BMI 35.0
== END ==
PROVIDERS: PCP Family Medicine; Visit Provider Anesthesiology Pain Medicine
DX: G89.29 Other chronic pain (principal); M51.36 Other intervertebral disc degeneration, lumbar region; M54.40 Lumbago with sciatica, unspecified side; M54.2 Cervicalgia; M79.601 Pain in right arm; M79.602 Pain in left arm; F17.210 Nicotine dependence, cigarettes, uncomplicated
CPT/HCPCS: 99214

== ENCOUNTER → 2021-08-09 07:21 | Outpatient (BNVA) | payer MEDICAID, SELFPAY ==
[2021-02-01 11:52] VITALS: BP 108/73; BMI 35.0
== END ==
PROVIDERS: PCP Family Medicine; Visit Provider Social Worker
DX: F33.2 Major depressive disorder, recurrent severe without psychotic features (principal); F41.1 Generalized anxiety disorder; F17.200 Nicotine dependence, unspecified, uncomplicated
CPT/HCPCS: 90834

== ENCOUNTER 2021-08-10 13:13 | Outpatient (CLI) | payer MEDICAID, SELFPAY ==
[2021-02-01 11:52] VITALS: BP 108/73; BMI 35.0
--- NOTE | 2021-08-10 13:19 | MR_ITS ---
WS: [id number] MRI LEFT SHOULDER HISTORY: Disorder of tendons. LEFT shoulder pain. COMPARISON: None available. TECHNIQUE: Multiplanar sequences of the shoulder joint are submitted. Study is compromised by significant motion artifact. Patient was unable to remain still for this exam ination. Mild AC joint arthritis. Soft tissue hypertrophy and bone hypertrophy at the AC joint. Mild encroachm ent upon the supraspinatus tendon. No significant subacromial impingement. Biceps tendon remains in t he bicipital groove. No os acromion. No marrow edema or fracture. There is increased T2 signal in the supraspinatus tendon directly over the humeral head. This may be related to encroachment by the AC joint hypertrophy. No direct full-thickness tear is identified. The very distal tendon is not well visualized due to motion. No retraction of the tendons. No muscle atr ophy. Increased T2 signal in the superior labrum. MR/MR shoulder LT wo con* [id number] IMPRESSION: 1. Quality of examination is significantly compromised by motion. 2. Mild AC joint arthritis with mild encroachment upon the supraspinatus tendo n and muscle. 3. Focal area of increased T2 signal in the supraspinatus directly over the hu meral head. May be secondary to encroachment by the AC joint. Favor tendinopath y. This study is insufficient to confirm tear. 4. No muscle atrophy or edema.
--- NOTE | 2021-08-10 13:23 | MR_ITS ---
WS: [id number] MRI CERVICAL SPINE NONCONTRAST HISTORY: Chronic neck pain and decreased range of motion. COMPARISON: None available. Technique: Multiplanar, multisequence noncontrast imaging of the cervical spine. Straightening and reversal normal cervical lordosis. Reversal centered at C5. Disc spaces are narrowe d and desiccated most significant at C5-6 and C6-7. No fracture or marrow edema. Signal within the cervical cord is normal. Visualized posterior fossa is unremarkable. Craniocervical junction, C1 and C2 relationship, odontoid process and soft tissues are normal. C2-C3: Small LEFT foraminal osteophytes. Very mild narrowing of the LEFT foramen. C3-C4: Normal. C4-C5: Very mild disc bulging and osteophytic ridging. More focal LEFT paracentral disc protrusion. V yogesh mild narrowing of the proximal LEFT foramen. C5-C6: Diffuse annular disc bulging with effacement of ventral CSF. There is mild osteophytic ridging and a small central protrusion. Disc osteophyte complexes extend into the neural foramen. There is m oderate central and bilateral foraminal stenosis. C6-C7: Very small shallow central disc protrusion very mild encroachment into the foramina bilaterall y, LEFT greater than RIGHT. C7-T1: Normal. Paraspinal soft tissue are normal. MR/MR cervical spin wo con* [id number] IMPRESSION: 1. Moderate degenerative disc disease at C5-6 and C6-7. 2. Disc bulging with osteophytes at C5-6 encroaching upon the central canal an d foramina. Shallow central disc protrusion. Moderate central and bilateral for aminal stenosis at the C5-6 level. 3. Shallow central disc protrusion at C6-7. Mild foraminal narrowing, LEFT gre ater than RIGHT. 4. Mild LEFT foraminal narrowing at C2-3 due to osteophytes. 5. Focal LEFT paracentral disc protrusion at C4-5 with minimal narrowing of th e proximal foramen.
== END 2021-08-10 13:14 | disposition home or self-care (01) ==
LOC: RAD 13:15
PROVIDERS: PCP Family Medicine; Visit Provider Nurse Practitioner Family
DX: M50.30 Other cervical disc degeneration, unspecified cervical region (principal); M67.912 Unspecified disorder of synovium and tendon, left shoulder; M50.322 Other cervical disc degeneration at C5-C6 level; M50.222 Other cervical disc displacement at C5-C6 level; M25.78 Osteophyte, vertebrae; M19.012 Primary osteoarthritis, left shoulder
CPT/HCPCS: 72141; 73221

== ENCOUNTER 2021-08-14 20:00 | Outpatient (CLI) | payer MEDICAID, SELFPAY ==
[2021-02-01 11:52] VITALS: BP 108/73; BMI 35.0
== END 2021-08-14 20:01 | disposition home or self-care (01) ==
LOC: SLEEP 08-15 07:29
PROVIDERS: PCP Family Medicine; Visit Provider Nurse Practitioner Family
DX: G47.33 Obstructive sleep apnea (adult) (pediatric) (principal)
CPT/HCPCS: 95811

== ENCOUNTER → 2021-08-23 07:26 | Outpatient (BNVA) | payer MEDICAID, OTHER, SELFPAY ==
[2021-02-01 11:52] VITALS: BP 108/73; BMI 35.0
== END ==
PROVIDERS: PCP Family Medicine; Visit Provider Social Worker
DX: F33.2 Major depressive disorder, recurrent severe without psychotic features (principal); F41.1 Generalized anxiety disorder; F43.12 Post-traumatic stress disorder, chronic
CPT/HCPCS: 90834; 90832

== ENCOUNTER 2021-09-01 11:29 | Outpatient (CLI) | payer MEDICAID, SELFPAY ==
[2021-02-01 11:52] VITALS: BP 108/73; BMI 35.0
[2021-09-01] MEDS: iohexol 350 mg/mL 100 mL Btl IV (11:43)
--- NOTE | 2021-09-01 13:00 | CT_ITS ---
WS: [id number] CT CHEST WITH INTRAVENOUS CONTRAST HISTORY: Partial atelectasis RIGHT middle lobe. TECHNIQUE: Contiguous 5 mm axial imaging performed on the thorax. Coronal and sagittal reformats are submitted. All CT scans at [facility] use at least one of these dose optimization techniques: automated exposure control; mA and/or kV adjustment per patient size (includes targeted exams where dose is matched to clinical indication); or iterative reconstruction. CONTRAST: Omnipaque 350; 95 mL IV. DLP: 736.58 mGy.cm COMPARISON: 02/13/2021. Lungs and central airway: Mild interstitial thickening and diffuse groundglass attenuation throughout the lungs. Probably related to smoking history. There are several peripheral spiculated nodules in t he RIGHT upper lobe and a more focal nodule measuring 13 mm in the RIGHT middle lobe. These are nonsp ecific but need further evaluation and follow-up for possible neoplasm or pneumonia. There is continu ed partial atelectasis of the RIGHT middle lobe. Pleura: Normal. No pleural effusion. Heart and pericardium: Mildly enlarged heart. No effusion. Mediastinum and sofia: Small cluster of lymph nodes at the RIGHT hilum, measuring 11 x 24 mm. There is an additional RIGHT hilar lymph node measuring 13 mm. Vessels: Normal size aortic and pulmonary artery. No coronary artery calcifications. Chest wall and lower neck: No chest wall abnormality. There is a nodule measuring 12 mm in the RIGHT breast. The prior mammogram of 02/17/2021 is reviewed. No abnormality is noted on that mammographic i mage. Upper abdomen: Prior cholecystectomy. Liver is enlarged. The entire liver is not included on this exa mination. The spleen appears normal size. No adrenal mass. Osseous structures: Thoracolumbar scoliosis. CT/CT chest w con* [id number] IMPRESSION: 1. Continued partial atelectasis RIGHT middle lobe. 2. New subcentimeter areas of mild spiculation in the RIGHT upper lobe and a 1 3 mm ill-defined nodule in the RIGHT middle lobe. Very nonspecific but could re present early neoplastic disease. May be postinflammatory also. Bronchoscopy ma y be necessary to evaluate the bronchus intermedius. 3. Indeterminate lymph nodes at the RIGHT hilum. Small cluster of lymph nodes measures 11 x 24 mm at the central RIGHT bronchus intermedius. 4. RIGHT breast nodule measures 12 mm. Recommend diagnostic RIGHT mammogram. Divina thomas had a prior mammogram on 02/17/2021 which is negative.
== END 2021-09-01 11:30 | disposition home or self-care (01) ==
LOC: RAD 11:30
PROVIDERS: PCP Family Medicine; Visit Provider Internal Medicine Pulmonary Disease
DX: J98.11 Atelectasis (principal)
CPT/HCPCS: 71260

== ENCOUNTER → 2021-09-04 11:13 | Outpatient (BNVA) | payer MEDICAID, SELFPAY ==
[2021-02-01 11:52] VITALS: BP 108/73; BMI 35.0
== END ==
PROVIDERS: PCP Family Medicine; Visit Provider Anesthesiology Pain Medicine
DX: G89.29 Other chronic pain (principal); M51.36 Other intervertebral disc degeneration, lumbar region; M47.816 Spondylosis without myelopathy or radiculopathy, lumbar region; M54.2 Cervicalgia; F17.210 Nicotine dependence, cigarettes, uncomplicated
CPT/HCPCS: 99214

== ENCOUNTER → 2021-09-06 07:22 | Outpatient (BNVA) | payer MEDICAID, SELFPAY ==
[2021-02-01 11:52] VITALS: BP 108/73; BMI 35.0
== END ==
PROVIDERS: PCP Family Medicine; Visit Provider Social Worker
DX: F33.2 Major depressive disorder, recurrent severe without psychotic features (principal); F41.1 Generalized anxiety disorder; F43.12 Post-traumatic stress disorder, chronic
CPT/HCPCS: 90834

== ENCOUNTER → 2021-09-07 08:46 | Outpatient (BNVA) | payer MEDICAID, SELFPAY ==
[2021-02-01 11:52] VITALS: BP 108/73; BMI 35.0
== END ==
PROVIDERS: PCP Family Medicine; Visit Provider Internal Medicine Pulmonary Disease
DX: J44.9 Chronic obstructive pulmonary disease, unspecified (principal); F17.210 Nicotine dependence, cigarettes, uncomplicated; G47.33 Obstructive sleep apnea (adult) (pediatric); J98.11 Atelectasis; R06.00 Dyspnea, unspecified; Z12.2 Encounter for screening for malignant neoplasm of respiratory organs; Z71.6 Tobacco abuse counseling; I10 Essential (primary) hypertension; E78.5 Hyperlipidemia, unspecified; K21.9 Gastro-esophageal reflux disease without esophagitis; E11.8 Type 2 diabetes mellitus with unspecified complications
CPT/HCPCS: 99214

== ENCOUNTER → 2021-09-19 07:29 | Outpatient (BNVA) | payer MEDICAID, SELFPAY ==
[2021-02-01 11:52] VITALS: BP 108/73; BMI 35.0
== END ==
PROVIDERS: PCP Family Medicine; Visit Provider Social Worker
DX: F41.1 Generalized anxiety disorder (principal); F33.2 Major depressive disorder, recurrent severe without psychotic features; F43.12 Post-traumatic stress disorder, chronic
CPT/HCPCS: 90834

== ENCOUNTER → 2021-09-20 07:08 | Outpatient (BNVA) | payer MEDICAID, SELFPAY ==
[2021-02-01 11:52] VITALS: BP 108/73; BMI 35.0
== END ==
PROVIDERS: PCP Family Medicine; Visit Provider Psychiatry & Neurology Psychiatry
DX: F41.1 Generalized anxiety disorder (principal); F43.12 Post-traumatic stress disorder, chronic; F17.200 Nicotine dependence, unspecified, uncomplicated; F33.2 Major depressive disorder, recurrent severe without psychotic features; R19.7 Diarrhea, unspecified; K91.5 Postcholecystectomy syndrome
CPT/HCPCS: 99214

== ENCOUNTER 2021-10-03 07:17 | Day surgery (SDC) | payer OTHER, MEDICAID, SELFPAY ==
[2021-02-01 11:52] VITALS: BP 108/73; BMI 35.0
[2021-09-28 10:48] VITALS: BMI 35.0
[2021-10-03] VITALS (9 sets, daily range): BP systolic 96–129; BP diastolic 58–84; PULSE 59–84; RESP 12–18; TEMP 36.2–36.4; O2SAT 90–100
--- NOTE | 2021-10-03 | SCC_ITS ---
Procedure done: -CPT code 20181: Bronchoscope for airway inspection -CPT code 83461: Bronchoscope with BAL -CPT code 19643: Bronchoscope with therapeutic aspiration of tracheobronchial tree, clearance of airway secretions and removal of mucous plugs -CPT code 09833: Bronchoscope with transbronchial lung biopsy single lobe -CPT code 61146: EBUS Sampling 1/2 nodes -Control of bleeding 78.0 seconds of fluoroscopic guidance, for a cumulative dose of 15.20 mGy, was provided to Dr. Osman by the radiology department. C-arm images of the chest were saved for the patient's permanent record. MTDD
[2021-10-03 08:06] LABS: Glucose Point of Care 91 mg/dL (70-110)
[2021-10-03] MEDS: sodium chloride 0.9% 1,000 ML 30 ML IV (08:25)
--- NOTE | 2021-10-03 08:29 | W.PM.OPSUD ---
Surgery/Procedure H&P Update DATE OF PROCEDURE: October 03, 2021 DATE H&P PERFORMED: 07/03/21 CHANGES TO PREVIOUS DOCUMENTATION: PET/CT performed after last clinic visit on 09/21/2021. Demonstrated low level of activity and will be needed to 5 mm nodule in the lateral right upper lobe with SUV max 1.98. Approximately 13 mm ill-defined nodule described in the right middle lobe on previous CT exam was not readily identified on the PET/CT there is evidence of crowding of vasculature atelectasis in this region with SUV max 3.63 which is above the threshold normally associated with increased likelihood of malignancy but likely vascular in origin. SUV max in the right hilum and approximately 5.39 and in the left hilum 4.88 compared to SUV max in the descending thoracic aorta 5.06. There are no other additionally significant FDG avid nodules are seen within the lung ochoa. No additionally significant FDG avid lymph nodes are seen within the sofia or mediastinum. We will proceed with bronchoscopic inspection of right middle lobe for endobronchial lesions versus foreign body and may need endobronchial biopsies and transbronchial biopsies from right middle lobe. I will also perform endobronchial ultrasound guided surveillance of mediastinum and right and left hilar area to see if there are any lymph nodes that needs to be sampled. Discussed with patient about the nature of the procedure, rationale, risks, benefits and possible complications of pneumothorax and bleeding and she agreed with procedure verbalizing understanding of the possible complications. PREOP DIAGNOSIS: History of colon polyps PRIMARY INDICATION FOR PROCEDURE: Partial atelectasis of the right middle lobe suspicious for endobronchial lesion PLANNED PROCEDURE: Operation Date: 10/03/21 09:10 Proposed Procedures p Bronchoscopy and EBUS; 86008, 86772, 77866, 56602,R91.9(Not Applicable) - Sergo Osman MD s Ebus(Not Applicable) - Sergo Osman MD
--- NOTE | 2021-10-03 09:14 | P.ANESASSM_ITS ---
Pre-Anesthetic Assessment Height/Weight: Height 1.68 m Weight 98.43 kg Temp Pulse Resp BP Pulse Ox 97.3 F L 59 L 18 129/84 96 10/03/21 07:39 10/03/21 07:39 10/03/21 07:39 10/03/21 07:39 10/03/21 07:39 Preop Diagnosis: History of colon polyps Operation Date: 10/03/21 09:10 Proposed Procedures p Bronchoscopy and EBUS; 58789, 92023, 97678, 82149,R91.9(Not Applicable) - Sergo Osman MD s Ebus(Not Applicable) - Sergo Osman MD Familial anesthetic complications: None Was Beta Comfort taken within 24 hours: N/A Was Clonidine taken within 24 hours: N/A Last intake: Intake Last Liquid Date 10/02/21 Last Liquid Time 20:00 Last Solid Date 10/02/21 Last Solid Time 20:00 Social Tobacco and No alcohol Exam alert, oriented x 3 and regular rate & rhythm Airway Submandibular: within normal limits Cervical ROM: within normal limits Mallampati: Class II Dentition: chipped (lower) and false (upper) Comments: Comments: Poor dentition on lower arch, multiple chipped and with caries Pulmonary Chronic Obstructive Pulmonary Disease and Sleep Apnea CV/HEM Hypertension and Peripheral Vascular Disease GI Gastroesophageal Reflux Disease Metabolic Hyperlipidemia and Morbid Obesity Neuropsych Anxiety, Depression and Neuropathy Anesthetic Plan ASA status: 3 Anesthesia: General Medications/Allergies Home Medications Medication Instructions Recorded Confirmed Last Taken Type cholecalciferol (vitamin D3) 100 100 mcg PO DAILY 12/07/19 10/03/21 10/03/21 History mcg (4,000 unit) tablet omega-3 fatty acids 1,000 mg 2,000 mg PO DAILY 30 Days #60 cap 06/06/20 10/03/21 10/02/21 Rx capsule folic acid 800 mcg tablet 0.8 mg PO DAILY 09/13/20 10/03/21 10/02/21 History potassium gluconate 595 mg (99 mg) 595 mg PO DAILY 09/13/20 10/03/21 10/02/21 History tablet sennosides 8.6 mg tablet (Natural 8.6 mg PO DAILY 11/29/20 10/03/21 10/02/21 His tory Senna Laxative) estradiol (Estrace) 0.5 g VAGINAL .twice weekly #42.5 12/06/20 10/03/21 10/02/21 Rx gm magnesium oxide 400 mg (241.3 mg 400 mg PO DAILY #90 tab 12/06/20 10/03/21 0 10/02/21 Rx magnesium) tablet simvastatin 20 mg tablet 20 mg PO BEDTIME #90 tab 03/20/21 10/03/21 10/02/21 Rx omeprazole 20 mg capsule,delayed 20 mg PO DAILY #90 cap 04/19/21 10/03/21 10/02/21 Rx release celecoxib 200 mg capsule (Celebrex) 200 mg PO DAILY #30 cap 07/10/21 10/03/21 10/02/21 Rx pioglitazone 15 mg tablet (Actos) 15 mg PO DAILY 07/10/21 10/03/21 10/02/21 History lisinopril 10 mg tablet 5 mg PO DAILY #90 tab 07/11/21 10/03/21 10/02/21 Rx metoprolol tartrate 25 mg tablet 25 mg PO BID #60 tab 07/11/21 10/03/21 10/02/21 Rx pen needle, diabetic 32 gauge x #100 ea 07/14/21 09/27/21 Unknown Rx (1st Tier Unifine Pentips) sitagliptin 50 mg tablet (Januvia) 50 mg PO DAILY #90 tab 07/18/21 10/03/21 10/02/21 Rx oxybutynin chloride 10 mg 10 mg PO DAILY #90 tab 07/27/21 10/03/21 10/02/21 Rx tablet,extended release 24 hr pregabalin 75 mg capsule 75 mg PO BID #60 cap 08/08/21 10/03/21 10/02/21 Rx tiotropium bromide 18 mcg capsule 1 cap INHALATION DAILY #30 inh 08/25/21 10/03/21 10/02/21 Rx with inhalation device (Spiriva with HandiHaler) naproxen sodium 220 mg tablet 220 mg PO BID PRN 09/18/21 09/28/21 Unknown History (Aleve) bupropion HCl 300 mg 24 hr tablet, 300 mg PO QAM #30 tab 09/20/21 10/03/21 10/02/21 Rx extended release (Wellbutrin XL) paroxetine HCl 40 mg tablet (Paxil) 60 mg PO DAILY #45 tab 09/20/21 10/03/21 10/02/21 Rx prazosin 5 mg capsule 5 mg PO .HS #30 cap 09/20/21 10/03/21 10/02/21 Rx trazodone 100 mg tablet 600 mg PO .HS PRN #180 tab 09/22/21 10/03/21 10/02/21 Rx albuterol sulfate 90 mcg/actuation 1 inh INHALATION QID PRN #8.5 g 09/26/21 10/03/21 10/02/21 Rx aerosol inhaler (Ventolin HFA) fluticasone 500 mcg-salmeterol 50 1 inh INHALATION BID #60 ea 09/26/21 10/03/21 10/02/21 Rx mcg/dose blistr powdr for inhalation (Advair Diskus) Allergies Allergy/AdvReac Type Severity Reaction Status Date / Time tramadol [From Ultram] AdvReac Intermediate Nausea, Verified 09/28/21 10:45 drowsiness Current Medications Generic Name Dose Route Start Last Admin Trade Name Freq PRN Reason Stop Dose Admin Sodium Chloride 1,000 mls @ 30 mls/hr 10/03/21 07:30 10/03/21 08:25 Sodium Chloride 0.9% IV 10/04/21 07:29 30 mls/hr .Q24H JOSEPH Administration PFSH Anesthesia Medical History Anxiety and depression Axillary lymphadenopathy Benign hypertension Bilateral ankle pain Bilateral wheezing Breast cancer screening by mammogram Carotid bruit Chronic low back pain Chronic neck pain Colon polyps COPD (chronic obstructive pulmonary disease) DDD (degenerative disc disease), cervical DDD (degenerative disc disease), lumbar Diabetes mellitus, type II Diagnosed in 2016 managed by primary care provider. She is on metformin and recently started Rybelsus in November 2019. Diarrhea Enlarged lymph nodes in armpit GERD (gastroesophageal reflux disease) Has never had an endoscopy H/O cardiac disorder HTN (hypertension) Diagnosed in 2017 and is on lisinopril managed by her primary care provider. 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 Hyperlipemia Low back pain Lower respiratory infection Lumbar stenosis Magnesium deficiency Metabolic syndrome Mixed hyperlipidemia SCHAEFER (nonalcoholic steatohepatitis) No pertinent past medical history Denies asthma, seizures, DVT/PE or thyroid problems. PCP: Nohemi Kwon, [employer] Numbness and tingling of lower extremity Obesity (BMI 30-39.9) MARIA GUADALUPE (obstructive sleep apnea) Otitis media Postcholecystectomy syndrome Psychiatric care Reactive lymphoid hyperplasia Right shoulder pain Rotator cuff dysfunction Shortness of breath Toenail deformity Urinary incontinence UTI (urinary tract infection), uncomplicated Surgical History H/O vaginal surgery (01/12/20) Posterior colporrhaphy. Performed by Dr. Robles at [facility] in [place], [place] S/P bladder repair x2 ----> 2006--had bladder prolapse and had mesh placed by Dr. Estrada. ----> 2014---patient had pain and had removal of mesh by Dr. Perry In [place] S/P colonoscopy with polypectomy Patient had colonoscopy with removal of two polyps. 2013 at [facility]. S/P laparoscopic cholecystectomy 1993 S/P wrist surgery --ganglion cyst removed from left wrist Status post hysterectomy 2006--vaginal hysterectomy with bilateral salpingo-oophorectomy done for abnormal uterine bleeding by Dr. Estrada. -Patient states her pathology was benign. Status post tonsillectomy Age of 6 or 7 Status post tubal ligation 1992- procedure via umbilicus Family History Mother Diabetes Grandmother Diabetes maternal Hypertension maternal Brother Diabetes Family/Other Breast cancer paternal aunt, age at diagnosis unknown Sister Ovarian cancer diagnosed in her 30s, mets to uterus Social History Smoking and tobacco status: current every day smoker (wants to quit) cigarettes Years cigarettes smoked: 30 Quit status (tobacco): has tried quititng Number of times tried to quit tobacco: 20 Second hand smoke exposure: Yes Alcohol intake: never Other details last substance use: Denies drug use Current occupation: Stay at home History of recent travel: No Additional social history: - Tobacco Use: Started smoking at age 20 and has smoked up to 1 1/2 packs per day since then. Currently smoking one pack per day. Drug Use: Denies Alcohol Use: Denies Work/Study Status: Stay at home mother Data Anesthesia Cardiac Studies: Echocardiogram 01/30/21 Sestamibi Stress Test (Cardiology) 04/03/21
--- NOTE | 2021-10-03 10:23 | SC_ITS ---
WS: [id number] INTRAOPERATIVE TECHNIQUE: 54 Spot fluoroscopic images for intraoperative purposes. FLUOROSCOPY TIME: 78 seconds CLINICAL INFORMATION: BRONCH FINDINGS: Fluoroscopy used for intraoperative bronchoscopy. Cannulation of the RIGHT mainstem and lower lobe bronchus with transbronchial biopsy. Endotracheal tu be directed towards RIGHT mainstem bronchus. SC/C-arm FL for Bronchoscopy IMPRESSION: Images obtained for intraoperative purposes.
[2021-10-03] MEDS: lidocaine 1% INJ 20 mL XX (10:35)
--- NOTE | 2021-10-03 11:55 | XRR_ITS ---
PROCEDURE INFORMATION: Exam: XR Chest Exam date and time: 10/03/2021 12:11 PM Age: 50 years old Clinical indication: Shortness of breath; Prior surgery; Surgery date: Post-operative (0-2 days); Surgery type: Bronchoscopy; Additional info: SOB TECHNIQUE: Imaging protocol: XR of the chest. Views: 1 view. COMPARISON: CT chest w con* [id number] 09/01/2021 11:41 AM FINDINGS: Lungs: There is bilateral mild interstitial pulmonary haziness. There is no focal airspace consolidation. Pleural spaces: Unremarkable. No pleural effusion. No pneumothorax. Heart/Mediastinum: Unremarkable. No cardiomegaly. Bones/joints: Unremarkable. XR/XR chest 1V portable [id number] IMPRESSION: There is mild bilateral hazy prominence of the pulmonary interstitium. Possible etiologies include interstitial fibrosis, interstitial pulmonary edema and viral pneumonia.
--- NOTE | 2021-10-03 11:59 | PM.OP ---
Operative Report Date of procedure: October 03, 2021 Pre-op diagnosis: Preop Diagnosis low-dose CT showed partial atelectasis of right middle lobe and PET positive right hilar activity-rule out endobronchial lesions and malignancy Post-op diagnosis: Same Procedure done: -CPT code 48209: Bronchoscope for airway inspection -CPT code 42242: Bronchoscope with BAL -CPT code 29980: Bronchoscope with therapeutic aspiration of tracheobronchial tree, clearance of airway secretions and removal of mucous plugs -CPT code 28613: Bronchoscope with transbronchial lung biopsy single lobe -CPT code 59012: EBUS Sampling 1/2 nodes -Control of bleeding Specimens removed/disposition: Bronchoalveolar lavage from right middle lobe Transbronchial biopsy sample from right middle lobe EBUS guided transbronchial needle aspiration of station 4R and 11 R Surgeon: Sergo Osman MD Brief History: Ms. Chinyere Hermosillo is a 50-year-old female with past medical history of COPD, hypertension, diabetes, hyperlipidemia, MARIA GUADALUPE?underwent a low-dose CT February 2021 which did not show any suspicious lesions but showed partial atelectasis of right middle lobe which needed further evaluation. Repeat CT chest with IV contrast 09/01/2021 showed continued partial atelectasis right middle lobe. With new subcentimeter areas of mild spiculation in the right upper lobe and a 13 mm ill-defined nodule in the right middle lobe. Subsequently patient underwent PET/CT on 09/21/2021 which showed low level of activity and 5 mm nodule in the lateral right upper lobe with SUV max 1.98. Approximately 13 mm ill-defined nodule described in the right middle lobe on CT exam was not readily identified on PET/CT there was evidence of crowding of vasculature and atelectasis in this region with SUV max 3.63 which is above the threshold normally associated with increased likelihood of malignancy. SUV max in right hilum and approximately 5.39 and in the left hilum 4.88 compared to SUV max in the descending thoracic aorta 5.06. No other additional significant FDG avid nodules in the lung ochoa or within the sofia or mediastinum. Today she is scheduled for scheduled for flexible bronchoscopy guided airway inspection, clearance of airway secretions, removal of mucous plugs,? and transbronchial biopsies of right middle lobe followed by endobronchial ultrasound-guided FNA C of right hilar/mediastinal lymph nodes and control of bleeding Procedure: Procedure: -Flexible bronchoscope for airway inspection? with therapeutic aspiration of tracheobronchial tree, clearance of airway secretions and removal of mucous plugs and obtaining BAL from right middle lobe and? transbronchial lung biopsy of right middle lobe followed by endobronchial ultrasound-guided FNA C of right hilar/mediastinal lymph nodes and Control of bleeding Pre-Operative Diagnosis: narrowing of right middle lobe-suspect endobronchial lesion and increased PET activity in right hilar area Post-Operative Diagnosis: Suspect malignancy Indication:narrowing of right middle lobe-suspect endobronchial lesion and increased PET activity in right hilar area Anesthesia: Managed as per anesthesia team Pre-procedure Evaluation: Patient was evaluated clinically and ancillary testing reviewed. The risk of having active MTB infection is very low in my clinical judgement. ASA: 3 Consent: Consents were obtained from [facility] and placed in the chart Procedure Details: Time out was performed by the procedure team and nursing staff.? Vent support maintained on Fio2 100. The bronchoscope was introduced through the LMA.? A bronchoscopic airway exam was performed to evaluate the visible tracheobronchial tree to the segmental level. Summary of Significant Findings: -Bronchoscope passed through ETT, into the distal trachea, both right and left main bronchus, instilled 1% lidocaine 2 mL each distal trachea, right mainstem bronchus and left mainstem bronchus. Tracheal mucosa appeared normal with no endotracheal lesions.? The main srini visualized which were sharp and normal.? Then the scope was passed through the? left bronchial tree and assessed left mainstem bronchus, MARICARMEN, Lingula, and LLL bronchi to the segmental and subsegmental level. No active bleeding noted.? Mucosa appeared normal.? Thick mucus secretions throughout left mainstem noted which were suctioned right away. Then the scope was placed in the right bronchial tree and assessed include the right mainstem bronchus, RBI, and RUL/RML/RLL bronchi to the segmental and subsegmental levels.? No active bleeding noted.? Mucosa appeared normal.? There were no endobronchial lesions.? There were thick mucus secretions noted through right middle lobe which were suctioned right away. ? After obtaining BAL obtained from right middle lobe, 4 transbronchial biopsies were obtained from lateral segment of right middle lobe.? There was minimal bleeding noted in the lateral segment of right middle lobe, probably due to abrasion from the scope-5 cc cold saline instilled and made sure bleeding stopped.? Bronchoscope was removed and endobronchial ultrasound was used to to identify lymph nodes with vasculature and 11 R and 4R stations. There was mild bleeding from biopsy sites which was controlled with cold saline. After taking lymph node biopsies from 11 R and 4R stations and making sure there is no active bleeding. EBUS scope retracted and procedure terminated. Estimated Blood Loss: 5 to 10 cc ? Specimens:? 1. Bronchoalveolar lavage was taken from right middle lobe and sent for microbiology cultures, ,? AFB cultures, fungal cultures, cytology 2. 4 transbronchial biopsies from right middle lobe 3. Endobronchial ultrasound-guided fine-needle aspiration of station 4R and 11 R lymph nodes ? Complications:None; patient tolerated the procedure well. Postprocedure chest x-ray did not show any pneumothorax ? Disposition: Stable-discharged home Sergo Osman MD Pulmonary critical Care Medicine [facility] Related Problem List Diagnoses (1) Atelectasis, right:
--- NOTE | 2021-10-03 12:10 | SUR.PHASEI ---
1152 PT TO PACU 5 ID BRACELET TO RT WRIST PT ID'D WITH 2 IDENTIFIERS, IV #20 NS UP BUT EMPTY, IV PIID NOW, HOB AT 30 DEGREES NO DISTRESS NOTED RESP EVEN AND UNLABORED, PT REPOSITIONS SELF REPEATEDLY, 1212 X RAY HERE PT VERY ALERT, DENIES PAIN AND NAUSEA, VSS.
--- NOTE | 2021-10-03 15:25 | ANE.PACU2 ---
Inpatient post-anesthesia follow up: Airway intact: Yes Vital signs: Temperature 97.6 F Pulse Rate 72 Respiratory Rate 16 Blood Pressure 117/77 Pulse Oximetry 90 Oxygen Delivery Me thod Room Air Oxygen Flow Rate 8 Fraction of Inspir ed Oxygen Hydration adequate: Yes Nausea and vomiting: No Pain level: 2 Mental status: Baseline
== END 2021-10-03 13:10 | disposition home or self-care (01) ==
PROVIDERS: PCP Family Medicine; Visit Provider Internal Medicine Pulmonary Disease
PROC: BB4BZZZ Ultrasonography of Pleura (ICD-10-PCS; 2021-10-03 09:10)
PROC: 0BJ08ZZ Inspection of Tracheobronchial Tree, Via Natural or Artificial Opening Endoscopic (ICD-10-PCS; CPT 31622; 2021-10-03 09:10)
DX: J98.11 Atelectasis (principal); J44.9 Chronic obstructive pulmonary disease, unspecified; R06.00 Dyspnea, unspecified; Z71.6 Tobacco abuse counseling; F17.200 Nicotine dependence, unspecified, uncomplicated; G47.33 Obstructive sleep apnea (adult) (pediatric); I10 Essential (primary) hypertension; K21.9 Gastro-esophageal reflux disease without esophagitis; E78.5 Hyperlipidemia, unspecified; E66.01 Morbid (severe) obesity due to excess calories; Z68.38 Body mass index [BMI] 38.0-38.9, adult; E11.40 Type 2 diabetes mellitus with diabetic neuropathy, unspecified; F41.9 Anxiety disorder, unspecified; F32.9 Major depressive disorder, single episode, unspecified
CPT/HCPCS: 31624; 31625; 31652; 36416; 71045; 76000; 82962; 87015; 87070; 87077; 87102; 87116; 87186; 87205; 87206; 87801; 88108; 88305; J1100; J2405; J2704; J2710; J3010; J3490; J3535; J7030

== ENCOUNTER → 2021-10-04 08:08 | Outpatient (BNVA) | payer MEDICAID, SELFPAY ==
[2021-02-01 11:52] VITALS: BP 108/73; BMI 35.0
== END ==
PROVIDERS: PCP Family Medicine; Visit Provider Surgery
DX: M67.911 Unspecified disorder of synovium and tendon, right shoulder (principal); N63.10 Unspecified lump in the right breast, unspecified quadrant; R10.11 Right upper quadrant pain; R22.2 Localized swelling, mass and lump, trunk; K76.0 Fatty (change of) liver, not elsewhere classified
CPT/HCPCS: 20610; 99203; 99213

== ENCOUNTER → 2021-11-27 10:38 | Outpatient (BNVA) | payer MEDICAID, SELFPAY ==
[2021-02-01 11:52] VITALS: BP 108/73; BMI 35.0
== END ==
PROVIDERS: PCP Family Medicine; Visit Provider Anesthesiology Pain Medicine
DX: G89.29 Other chronic pain (principal); M51.36 Other intervertebral disc degeneration, lumbar region; M50.322 Other cervical disc degeneration at C5-C6 level; M79.601 Pain in right arm; M79.602 Pain in left arm; M79.605 Pain in left leg; M79.604 Pain in right leg; F17.210 Nicotine dependence, cigarettes, uncomplicated
CPT/HCPCS: 99213; 99214

== ENCOUNTER 2021-12-21 10:35 | Outpatient (CLI) | payer MEDICAID, SELFPAY ==
[2021-02-01 11:52] VITALS: BP 108/73; BMI 35.0
--- NOTE | 2021-12-21 10:41 | US_ITS ---
WS: [id number] ULTRASOUND BREAST RIGHT TECHNIQUE: Ultrasound right breast focused area of concern. CLINICAL INFORMATION: Right lump COMPARISON: Mammogram February 17, [address] chest September 01, 2021 FINDINGS: Technically difficult examination. Detailed Ultrasound entire RIGHT breast was performed. Tiny incidental cyst at the 11:00 position karishma suring 3 mm. Poorly defined hypoechoic tissue at the areola 11:00 position measuring 1.0 x 0.5 x 0.7 CM. This likely represents dense fibrous tissue or fibrocystic change. This can be followed up in 6 m [facility] to confirm stability. No other suspicious findings. US/US breast RT limited* [id number] IMPRESSION: BI-RADS 3 probably benign Follow up: 6 month follow-up Recommend 6 month follow-up RIGHT breast ultrasound with attention to the dense breast tissue at the areola 11:00 position. This could be performed at the teja e of annual screening mammography.
== END 2021-12-21 10:36 | disposition home or self-care (01) ==
PROVIDERS: PCP Family Medicine; Visit Provider Surgery
DX: N63.11 Unspecified lump in the right breast, upper outer quadrant (principal)
CPT/HCPCS: 76642

== ENCOUNTER → 2022-01-01 09:36 | Outpatient (BNVA) | payer MEDICAID, SELFPAY ==
[2021-02-01 11:52] VITALS: BP 108/73; BMI 35.0
== END ==
PROVIDERS: PCP Family Medicine; Visit Provider Surgery
DX: N63.10 Unspecified lump in the right breast, unspecified quadrant (principal)
CPT/HCPCS: 99213

== ENCOUNTER 2022-01-16 07:46 | Outpatient (CLI) | payer MEDICAID, SELFPAY ==
[2021-02-01 11:52] VITALS: BP 108/73; BMI 35.0
--- NOTE | 2022-01-16 08:30 | US_ITS ---
WS: [id number] RIGHT UPPER QUADRANT ULTRASOUND HISTORY: Right upper Quadrant pain COMPARISON: 12/01/2019 Liver: 18.3 cm in length. Moderately enlarged liver with mild hepatic steatosis. No mass or bile duct dilatation. Portal Vein: Normal hepatopetal flow with monophasic waveform. Gallbladder: Status post cholecystectomy. CBD: 0.8 cm Pancreas: Normal size and echogenicity. Right kidney: 10.0 cm in length. Normal size and echogenicity. No hydronephrosis or mass. Aorta and IVC: Unremarkable abdominal aorta and IVC. No ascites. US/US liver [id number] IMPRESSION: 1. Moderate hepatomegaly and hepatic steatosis. Similar to the prior study [facility] 12[facility]01[facility]2019. 2. Prior cholecystectomy.
== END 2022-01-16 07:47 | disposition home or self-care (01) ==
PROVIDERS: PCP Family Medicine; Visit Provider Surgery
DX: R10.11 Right upper quadrant pain (principal); R16.0 Hepatomegaly, not elsewhere classified
CPT/HCPCS: 76705

== ENCOUNTER → 2022-02-19 11:52 | Outpatient (BNVA) | payer MEDICAID, SELFPAY ==
[2021-02-01 11:52] VITALS: BP 108/73; BMI 35.0
== END ==
PROVIDERS: PCP Family Medicine; Visit Provider Anesthesiology Pain Medicine
DX: M17.9 Osteoarthritis of knee, unspecified (principal); M54.40 Lumbago with sciatica, unspecified side; G89.29 Other chronic pain; M54.2 Cervicalgia; M51.36 Other intervertebral disc degeneration, lumbar region; M19.90 Unspecified osteoarthritis, unspecified site
CPT/HCPCS: 73560

== ENCOUNTER 2022-03-05 09:36 | Outpatient (CLI) | payer MEDICAID, SELFPAY ==
[2021-02-01 11:52] VITALS: BP 108/73; BMI 35.0
--- NOTE | 2022-03-05 10:15 | CT_ITS ---
WS: [id number] LDCT LUNG CANCER SCREENING TECHNIQUE: Noncontrast CT of the chest with coronal and sagittal reformatted images. CLINICAL INFORMATION: F17.210 - Nicotine dependence, cigarettes, uncomplicated COMPARISON: CT chest September 01, 2021 DLP: 68.10 mGy.cm DIvol: Mean CTDIvol: 1.60 (mGy) All CT scans at [facility] use at least one of these dose optimization techniques: automat ed exposure control; mA and/or kV adjustment per patient size (includes targeted exams where dose is matched to clinical indication); or iterative reconstruction. FINDINGS: Hazy groundglass patchy opacities in the RIGHT upper lobe are similar to previous likely infectious o r inflammatory. Previously described noncalcified nodule in the RIGHT upper lobe posteriorly measurin g 7 mm is unchanged. Additional smaller clustered opacities previously described have improved compar ed to previous. Improved subsegmental atelectasis in the RIGHT middle lobe with improved aeration. No focal pneumonia or pleural fluid. RIGHT lower pole thyroid nodule at the mediastinal inlet measuring 2.3 cm is uncha nged. No axillary lymphadenopathy. Prominent RIGHT peribronchial and RIGHT hilar lymph nodes are demetrius lar in appearance. Cholecystectomy clips. Normal GE junction. Hepatomegaly. LEFT adrenal gland is normal. CT/CT lung screening [id number] IMPRESSION: LUNG-RADS: 3-Probably Benign FOLLOW UP: 6 Month LDCT
== END 2022-03-05 09:37 | disposition home or self-care (01) ==
LOC: RAD 09:37
PROVIDERS: PCP Family Medicine; Visit Provider Internal Medicine Pulmonary Disease
DX: Z12.2 Encounter for screening for malignant neoplasm of respiratory organs (principal); F17.210 Nicotine dependence, cigarettes, uncomplicated
CPT/HCPCS: 71271

== ENCOUNTER 2022-04-16 13:29 | Outpatient (CLI) | payer MEDICAID, SELFPAY ==
[2021-02-01 11:52] VITALS: BP 108/73; BMI 35.0
--- NOTE | 2022-04-16 14:30 | MR_ITS ---
WS: [id number] MRI LEFT KNEE HISTORY: pain COMPARISON: Radiograph 02/19/2022 Anterior cruciate ligament: Intact. Posterior cruciate ligament: Intact. Medial collateral ligament: Intact. Posterior lateral corner structures: Intact. Medial menisci: Intact. Normal signal, size and shape. Lateral meniscus: Intact. Normal signal, size and shape. Extensor mechanism: Distal quadriceps tendon and patellar tendons are intact. Fluid and soft tissue: Small joint effusion. Small amount of edema in the infrapatellar fat pad. Very small amount of fluid in Hung's cyst. Osseous and articular structures: Patellofemoral compartment: Mild osteoarthritis. Medial compartment: Mild narrowing of the medial compartment. Minimal superficial fissuring of the ca rtilage. No fracture or marrow edema. Lateral compartment: Mild narrowing of the lateral compartment with minimal loss of cartilage. No mar row edema. MR/MR knee LT wo con* [id number] IMPRESSION: 1. Very small suprapatellar joint effusion. 2. No meniscal tear. 3. Mild tricompartment osteoarthritis. 4. Very tiny Hung's cyst.
== END 2022-04-16 13:30 | disposition home or self-care (01) ==
LOC: RAD 13:31
PROVIDERS: PCP Family Medicine; Visit Provider Orthopaedic Surgery
DX: M25.462 Effusion, left knee (principal); M17.12 Unilateral primary osteoarthritis, left knee; M71.22 Synovial cyst of popliteal space [Baker], left knee
CPT/HCPCS: 73721

== ENCOUNTER → 2022-06-11 09:47 | Outpatient (BNVA) | payer MEDICAID, SELFPAY ==
[2021-02-01 11:52] VITALS: BP 108/73; BMI 35.0
== END ==
PROVIDERS: PCP Family Medicine; Visit Provider Family Medicine
DX: G47.33 Obstructive sleep apnea (adult) (pediatric) (principal); E11.9 Type 2 diabetes mellitus without complications; I10 Essential (primary) hypertension
CPT/HCPCS: 80053; 80061; 83036; 84443; 85025

== ENCOUNTER 2022-06-15 15:02 | Outpatient (CLI) | payer MEDICAID, SELFPAY ==
[2021-02-01 11:52] VITALS: BP 108/73; BMI 35.0
--- NOTE | 2022-06-15 15:13 | MM_ITS ---
WS: [id number] BILATERAL 3D TOMOSYNTHESIS DIGITAL DIAGNOSTIC MAMMOGRAPHY WITH CAD CLINICAL INFORMATION: KOLE BREAST LUMPS HISTORY: Bilateral breast lumps. COMPARISON: February 17, 2021 TECHNIQUE: Bilateral CC, MLO, and ML views. FINDINGS: Scattered fibroglandular densities bilaterally. Bilateral palpable markers. Normal underlying mammogr aphic recommend tissue. Ultrasound of the palpable areas described below. Stable dense breast tissue posterior to the RIGHT areola unchanged since 2019. Otherwise no suspicious focal mass, asymmetry, calcifications, or architectural distortion. Breast pa renchyma appears stable compared to 2020 ULTRASOUND BREAST BILATERAL TECHNIQUE: Ultrasound bilateral breast focused area of concern. CLINICAL INFORMATION: KOLE BREAST LUMPS COMPARISON: December 21, 2021 FINDINGS: RIGHT BREAST: Ultrasound RIGHT breast demonstrates a tiny incidental simple cyst at the 11:00 positio n 3 cm from the nipple unchanged from previous measuring 4 x 3 mm. At the previously described 11:00 areola, there is normal-appearing dense parenchymal tissue today. No suspicious lesions in the area. Ultrasound area of interest at the 5:00 position 2 cm from the nipple demonstrates normal underlying parenchymal tissue. Small lymph node in the area of concern RIGHT axilla with normal fatty hilum measuring 11 x 7 mm. LEFT BREAST: Ultrasound LEFT breast the 2:00 position 2 cm from the nipple in the area of concern dem onstrates normal underlying parenchymal tissue. No cystic or solid lesions. No suspicious findings in this area. MM/[place] [id number] IMPRESSION: BI-RADS 2 benign FOLLOW UP: Recommend return to annual screening mammography.
== END 2022-06-15 15:03 | disposition home or self-care (01) ==
LOC: RAD 15:02
PROVIDERS: PCP Family Medicine; Visit Provider Family Medicine
DX: N63.11 Unspecified lump in the right breast, upper outer quadrant (principal); N63.21 Unspecified lump in the left breast, upper outer quadrant
CPT/HCPCS: 76642; 77062; G0279

== ENCOUNTER → 2022-07-20 15:43 | Outpatient (BNVA) | payer MEDICAID, SELFPAY ==
[2021-02-01 11:52] VITALS: BP 108/73; BMI 35.0
== END ==
PROVIDERS: PCP Family Medicine; Visit Provider Nurse Practitioner
DX: R30.0 Dysuria (principal); N39.0 Urinary tract infection, site not specified; R39.9 Unspecified symptoms and signs involving the genitourinary system
CPT/HCPCS: 81000

== ENCOUNTER 2022-08-06 09:19 | Outpatient (CLI) | payer OTHER, MEDICAID, SELFPAY ==
[2021-02-01 11:52] VITALS: BP 108/73; BMI 35.0
--- NOTE | 2022-08-06 10:00 | CT_ITS ---
WS: [id number] CT CHEST TECHNIQUE: Noncontrast CT of the chest with coronal and sagittal reformatted images. CLINICAL INFORMATION: 6 month f/u COMPARISON: CT lung screening March 05, 2022 DLP: 478.[address] scans at [facility] use at least one of these dose optimization techniques: automated e xposure control; mA and/or kV adjustment per patient size (includes targeted exams where dose is matc hed to clinical indication); or iterative reconstruction. FINDINGS:Stable 7 mm noncalcified nodule RIGHT upper lobe posteriorly. Previously described groundgla ss infiltrates have improved. No focal pneumonia or pleural fluid. Normal caliber thoracic aorta. Cholecystectomy clips. Partially visualized hepatomegaly. Adrenal glan ds are normal. Normal GE junction. RIGHT lower pole thyroid nodule measuring 1.9 x 1.5 cm. No mediast inal or hilar lymphadenopathy. No axillary lymphadenopathy. Hypertrophic changes thoracic spine. CT/CT chest wo con [id number] IMPRESSION: 1. Previously described 7 mm pulmonary nodule RIGHT upper lobe is unchanged. R ecommend 12 month follow-up. 2. No other suspicious findings.
== END 2022-08-06 09:20 | disposition home or self-care (01) ==
LOC: RAD 09:22
PROVIDERS: PCP Family Medicine; Visit Provider Internal Medicine Pulmonary Disease
DX: R91.1 Solitary pulmonary nodule (principal)
CPT/HCPCS: 71250

== ENCOUNTER → 2022-09-17 15:11 | Outpatient (BNVA) | payer MEDICARE, MEDICAID, SELFPAY ==
[2021-02-01 11:52] VITALS: BP 108/73; BMI 35.0
== END ==
PROVIDERS: PCP Family Medicine; Referring Provider Nurse Practitioner Family; Visit Provider Internal Medicine
DX: E11.9 Type 2 diabetes mellitus without complications (principal); K76.0 Fatty (change of) liver, not elsewhere classified; Z68.41 Body mass index [BMI] 40.0-44.9, adult; Z79.899 Other long term (current) drug therapy
CPT/HCPCS: 99204

== ENCOUNTER → 2022-11-23 08:23 | Outpatient (BNVA) | payer MEDICARE, MEDICAID, SELFPAY ==
[2022-09-19 13:43] VITALS: BP 104/72; BMI 42.2
== END ==
PROVIDERS: PCP Family Medicine; Visit Provider Internal Medicine
DX: E11.9 Type 2 diabetes mellitus without complications (principal); E78.2 Mixed hyperlipidemia; E78.5 Hyperlipidemia, unspecified
CPT/HCPCS: 80053; 80061; 82043; 83036

== ENCOUNTER 2022-12-04 06:00 | Outpatient (RCR) | payer MEDICARE, MEDICAID, SELFPAY ==
[2022-09-19 13:43] VITALS: BP 104/72; BMI 42.2
== END 2023-01-03 23:59 | disposition home or self-care (01) ==
LOC: WPT 06:00
PROVIDERS: PCP Family Medicine; Visit Provider Nurse Practitioner Family
DX: M67.911 Unspecified disorder of synovium and tendon, right shoulder (principal)
CPT/HCPCS: 97110; 97140; 97161; 97530

== ENCOUNTER → 2022-12-19 09:43 | Outpatient (BNVA) | payer MEDICARE, MEDICAID, SELFPAY ==
[2022-09-19 13:43] VITALS: BP 104/72; BMI 42.2
== END ==
PROVIDERS: PCP Family Medicine; Visit Provider Internal Medicine
DX: E11.9 Type 2 diabetes mellitus without complications (principal); K76.0 Fatty (change of) liver, not elsewhere classified; R16.0 Hepatomegaly, not elsewhere classified
CPT/HCPCS: 99214

== ENCOUNTER 2023-01-02 09:51 | Outpatient (CLI) | payer MEDICARE, MEDICAID, SELFPAY ==
[2022-09-19 13:43] VITALS: BP 104/72; BMI 42.2
--- NOTE | 2023-01-02 10:30 | US_ITS ---
WS: [id number] RIGHT UPPER QUADRANT ULTRASOUND HISTORY: evaulation for liver. COMPARISON: 01/16/2022, 12/01/2019 Liver: 18.2 cm in length. Moderately enlarged liver. Mild diffuse coarse echotexture. No mass or bile duct dilatation. Portal Vein: Normal hepatopetal flow with monophasic waveform. Gallbladder: Status post cholecystectomy. CBD: 0.6 cm Pancreas: Normal size and echogenicity. Right kidney: 11.2 cm in length. Normal size and echogenicity. No hydronephrosis or mass. Aorta and IVC: Unremarkable abdominal aorta and IVC. No ascites. IMPRESSION: 1. Mild hepatomegaly and hepatic steatosis. Similar to the most recent examination and 12/01/2019. 2. Prior cholecystectomy. 3. No hepatic mass.
== END 2023-01-02 09:52 | disposition home or self-care (01) ==
LOC: RAD 09:53
PROVIDERS: PCP Family Medicine; Visit Provider Internal Medicine
DX: K76.0 Fatty (change of) liver, not elsewhere classified (principal); R16.0 Hepatomegaly, not elsewhere classified; Z90.49 Acquired absence of other specified parts of digestive tract
CPT/HCPCS: 76705

== ENCOUNTER 2023-01-04 06:00 | Outpatient (RCR) | payer MEDICARE, MEDICAID, SELFPAY ==
[2022-09-19 13:43] VITALS: BP 104/72; BMI 42.2
== END 2023-02-02 23:59 | disposition home or self-care (01) ==
LOC: WPT 06:00
PROVIDERS: PCP Family Medicine; Visit Provider Nurse Practitioner Family
DX: M25.511 Pain in right shoulder (principal)
CPT/HCPCS: 97110; 97140; 97530

== ENCOUNTER → 2023-01-10 09:05 | Outpatient (BNVA) | payer MEDICARE, MEDICAID, SELFPAY ==
[2022-09-19 13:43] VITALS: BP 104/72; BMI 42.2
== END ==
PROVIDERS: PCP Family Medicine; Visit Provider Nurse Practitioner
DX: N39.0 Urinary tract infection, site not specified (principal)
CPT/HCPCS: 81000

== ENCOUNTER 2023-02-03 06:00 | Outpatient (RCR) | payer MEDICARE, MEDICAID, SELFPAY ==
[2022-09-19 13:43] VITALS: BP 104/72; BMI 42.2
== END 2023-03-05 23:59 | disposition home or self-care (01) ==
LOC: WPT 06:00
PROVIDERS: PCP Family Medicine; Visit Provider Nurse Practitioner Family
DX: M67.911 Unspecified disorder of synovium and tendon, right shoulder (principal)
CPT/HCPCS: 97110; 97530

== ENCOUNTER → 2023-02-21 10:43 | Outpatient (BNVA) | payer MEDICARE, MEDICAID, SELFPAY ==
[2022-09-19 13:43] VITALS: BP 104/72; BMI 42.2
== END ==
PROVIDERS: PCP Family Medicine; Visit Provider Anesthesiology Pain Medicine
DX: G89.29 Other chronic pain; M51.36 Other intervertebral disc degeneration, lumbar region; M54.2 Cervicalgia; M17.12 Unilateral primary osteoarthritis, left knee; F33.2 Major depressive disorder, recurrent severe without psychotic features; F41.1 Generalized anxiety disorder
CPT/HCPCS: 99213

== ENCOUNTER → 2023-03-01 11:01 | Outpatient (BNVA) | payer MEDICARE, MEDICAID, SELFPAY ==
[2022-09-19 13:43] VITALS: BP 104/72; BMI 42.2
== END ==
PROVIDERS: PCP Family Medicine; Visit Provider Nurse Practitioner Family
DX: N02.9 Recurrent and persistent hematuria with unspecified morphologic changes (principal); R31.9 Hematuria, unspecified; I10 Essential (primary) hypertension
CPT/HCPCS: 81003; 87086

== ENCOUNTER → 2023-03-13 11:06 | Outpatient (BNVA) | payer MEDICARE, MEDICAID, SELFPAY ==
[2022-09-19 13:43] VITALS: BP 104/72; BMI 42.2
== END ==
PROVIDERS: PCP Family Medicine; Visit Provider Nurse Practitioner Family
DX: R39.9 Unspecified symptoms and signs involving the genitourinary system (principal); I10 Essential (primary) hypertension
CPT/HCPCS: 81003; 87077; 87086; 87184

== ENCOUNTER → 2023-03-14 08:18 | Outpatient (BNVA) | payer MEDICARE, MEDICAID, SELFPAY ==
[2022-09-19 13:43] VITALS: BP 104/72; BMI 42.2
== END ==
PROVIDERS: PCP Family Medicine; Visit Provider Nurse Practitioner Family
DX: N02.9 Recurrent and persistent hematuria with unspecified morphologic changes (principal)
CPT/HCPCS: 88112

== ENCOUNTER → 2023-04-11 11:03 | Outpatient (BNVA) | payer MEDICARE, MEDICAID, SELFPAY ==
[2022-09-19 13:43] VITALS: BP 104/72; BMI 42.2
== END ==
PROVIDERS: PCP Family Medicine; Visit Provider Internal Medicine Cardiovascular Disease
DX: R06.00 Dyspnea, unspecified (principal); R53.83 Other fatigue; I10 Essential (primary) hypertension; E78.2 Mixed hyperlipidemia; E11.9 Type 2 diabetes mellitus without complications
CPT/HCPCS: 99214

== ENCOUNTER → 2023-04-22 09:30 | Outpatient (BNVA) | payer MEDICARE, MEDICAID, SELFPAY ==
[2022-09-19 13:43] VITALS: BP 104/72; BMI 42.2
== END ==
PROVIDERS: PCP Family Medicine; Visit Provider Internal Medicine
DX: E11.9 Type 2 diabetes mellitus without complications (principal)
CPT/HCPCS: 80053; 80061; 82043; 83036

== ENCOUNTER → 2023-04-30 09:24 | Outpatient (BNVA) | payer MEDICARE, MEDICAID, SELFPAY ==
[2022-09-19 13:43] VITALS: BP 104/72; BMI 42.2
== END ==
PROVIDERS: PCP Family Medicine; Visit Provider Internal Medicine
DX: E11.9 Type 2 diabetes mellitus without complications (principal); K76.0 Fatty (change of) liver, not elsewhere classified; E78.2 Mixed hyperlipidemia; Z79.85 Long-term (current) use of injectable non-insulin antidiabetic drugs
CPT/HCPCS: 99214

== ENCOUNTER 2023-07-17 12:34 | Outpatient (CLI) | payer MEDICARE, MEDICAID, SELFPAY ==
[2022-09-19 13:43] VITALS: BP 104/72; BMI 42.2
--- NOTE | 2023-07-17 13:30 | MM_ITS ---
WS: [id number] BILATERAL 3D TOMOSYNTHESIS DIGITAL SCREENING MAMMOGRAPHY WITH CAD CLINICAL INFORMATION: Z12.31 - Encounter for screening mammogram for malignant ... HISTORY: Screening mammogram. No current complaints. COMPARISON: 2022 TECHNIQUE: Bilateral CC and MLO views. FINDINGS: Scattered fibroglandular densities bilaterally. No suspicious focal mass, asymmetry, calcifications, or architectural distortion. No evidence of malignancy. Stable dense breast tissue posterior to the R IGHT areola unchanged since 2019. IMPRESSION: MM/[place] [id number] BI-RADS: 2-Benign FOLLOW UP: 1 Year Follow-up Recommend return to annual screening mammography.
== END 2023-07-17 12:35 | disposition home or self-care (01) ==
LOC: RAD 12:35
PROVIDERS: PCP Family Medicine; Visit Provider Nurse Practitioner Family
DX: Z12.31 Encounter for screening mammogram for malignant neoplasm of breast (principal); R92.323 Mammographic fibroglandular density, bilateral breasts
CPT/HCPCS: 77063; 77067; 99213

== ENCOUNTER 2023-07-18 08:44 | Outpatient (CLI) | payer MEDICARE, MEDICAID, SELFPAY ==
[2022-09-19 13:43] VITALS: BP 104/72; BMI 42.2
[2023-07-18 10:00] LABS: Alanine Aminotransferase 10 U/L (0-33); Albumin Level 3.8 g/dL (3.5-5.2); Alkaline Phosphatase 100 U/L (35-105); Anion Gap 14.3 (5-19); Aspartate Amino Transferase 16 U/L (0-32); Blood Urea Nitrogen 11 mg/dL (6-20); Calcium 8.9 mg/dL (8.5-10.5); Carbon Dioxide 27 mmol/L (22-29); Chloride 104 mmol/L (98-107); Chol HDL Ratio 5.21 mg/dL (0.0-4.40); Cholesterol 224 mg/dL (0-200); Glucose 101 mg/dL (65-115); HDL Cholesterol 43 mg/dL (60-100); LDL Cholesterol Calculated 160 mg/dL (50-129); LDL HDL Ratio 3.72 RATIO (0.00-3.22); Osmolality Calculated 292 mOsm/kg (285-295); Potassium 4.3 mmol/L (3.5-5.1); Sodium 141 mmol/L (136-145); Total Bilirubin 0.2 mg/dL (0.15-1.2); Total Protein 6.8 g/dL (6.6-8.7); Triglycerides 103 mg/dL (0-150)
[2023-07-18 10:22] LABS: Estmated Average Glucose 82; Hemoglobin A1C 4.5 % (4.0-6.0)
[2023-07-18 10:30] LABS: Creatinine Urine, Random 202 mg/dL (28-217); Microalbum Creatinine Ratio Ur 5 mg/dL (0-20); Microalbumin Random Urine 1 ug/dL (0-20)
== END 2023-07-18 08:45 | disposition home or self-care (01) ==
LOC: LAB 08:45
PROVIDERS: PCP Family Medicine; Visit Provider Internal Medicine
DX: E11.9 Type 2 diabetes mellitus without complications (principal); K76.0 Fatty (change of) liver, not elsewhere classified
CPT/HCPCS: 36415; 80053; 80061; 82044; 83036

== ENCOUNTER → 2023-07-29 08:48 | Outpatient (BNVA) | payer MEDICARE, MEDICAID, SELFPAY ==
[2022-09-19 13:43] VITALS: BP 104/72; BMI 42.2
== END ==
PROVIDERS: PCP Family Medicine; Visit Provider Internal Medicine
DX: E11.9 Type 2 diabetes mellitus without complications (principal); K76.0 Fatty (change of) liver, not elsewhere classified; Z79.85 Long-term (current) use of injectable non-insulin antidiabetic drugs
CPT/HCPCS: 99214

== ENCOUNTER → 2023-08-16 09:33 | Outpatient (BNVA) | payer MEDICARE, SELFPAY ==
[2022-09-19 13:43] VITALS: BP 104/72; BMI 42.2
== END ==
PROVIDERS: PCP Nurse Practitioner Family; Visit Provider Nurse Practitioner Family
DX: I95.1 Orthostatic hypotension (principal)
CPT/HCPCS: 99213

== ENCOUNTER → 2023-08-22 10:03 | Outpatient (BNVA) | payer MEDICARE, MEDICAID, SELFPAY ==
[2022-09-19 13:43] VITALS: BP 104/72; BMI 42.2
== END ==
PROVIDERS: PCP Nurse Practitioner Family; Visit Provider Anesthesiology Pain Medicine
DX: G89.29 Other chronic pain; M50.30 Other cervical disc degeneration, unspecified cervical region; M54.40 Lumbago with sciatica, unspecified side; M51.36 Other intervertebral disc degeneration, lumbar region; M17.12 Unilateral primary osteoarthritis, left knee
CPT/HCPCS: 99214

== ENCOUNTER 2023-08-23 08:24 | Outpatient (CLI) | payer MEDICARE, MEDICAID, SELFPAY ==
[2022-09-19 13:43] VITALS: BP 104/72; BMI 42.2
--- NOTE | 2023-08-23 09:00 | CT_ITS ---
WS: [id number] LDCT LUNG CANCER SCREENING HISTORY: F17.210 - Nicotine dependence, cigarettes, uncomplicated TECHNIQUE: Axial imaging performed from the apices to 1 cm below the costophrenic angles. Coronal and sagittal reformats are submitted with axial MIP series. All CT scans at [facility] use at least one of these dose optimization techniques: automated exposure control; mA and/or kV adjustment per patient size (includes targeted exams where dose is matched to clinical indication); or iterativ e reconstruction. DLP: 86.27 mGy.cm DIvol: Mean CTDIvol: 1.70 (mGy) COMPARISON: 08/06/2022, 03/05/2022 Diagnostic quality: Satisfactory Lungs: No change in the 7 mm RIGHT upper lobe pulmonary nodule that has been previously described. Ne w 5 mm nodule identified in the LEFT lung is perifissural. No suspicious mass. No pneumonia. Heart: Normal size heart with no pericardial effusion.. Other findings: No adenopathy. Normal size heart. Normal aorta. Prior cholecystectomy. No adrenal mas s. IMPRESSION: CT/CT lung screening [id number] LUNG-RADS: 2-Benign Appearance or Behavior FOLLOW UP: 12 Month: Continue annual screening with LDCT OTHER FINDINGS (S MODIFIER): None.
== END 2023-08-23 08:25 | disposition home or self-care (01) ==
LOC: RAD 08:25
PROVIDERS: PCP Nurse Practitioner Family; Visit Provider Internal Medicine Pulmonary Disease
DX: F17.210 Nicotine dependence, cigarettes, uncomplicated (principal); Z12.2 Encounter for screening for malignant neoplasm of respiratory organs
CPT/HCPCS: 71271

== ENCOUNTER → 2023-10-21 14:54 | Outpatient (BNVA) | payer MEDICARE, MEDICAID, SELFPAY ==
[2022-09-19 13:43] VITALS: BP 104/72; BMI 42.2
== END ==
PROVIDERS: PCP Nurse Practitioner Family; Visit Provider Nurse Practitioner Family
DX: D64.9 Anemia, unspecified (principal); I10 Essential (primary) hypertension; I95.9 Hypotension, unspecified; E11.9 Type 2 diabetes mellitus without complications
CPT/HCPCS: 80053; 84439; 84443; 85025

== ENCOUNTER 2023-12-05 17:30 | Outpatient (CLI) | payer MEDICARE, MEDICAID, SELFPAY ==
[2022-09-19 13:43] VITALS: BP 104/72; BMI 42.2
[2023-12-05 18:31] LABS: Alanine Aminotransferase 11 U/L (0-33); Albumin Level 3.8 g/dL (3.5-5.2); Alkaline Phosphatase 72 U/L (35-105); Anion Gap 11.9 (5-19); Aspartate Amino Transferase 11 U/L (0-32); Blood Urea Nitrogen 10 mg/dL (6-20); Calcium 8.8 mg/dL (8.5-10.5); Carbon Dioxide 27 mmol/L (22-29); Chloride 110 mmol/L (98-107); Chol HDL Ratio 3.39 mg/dL (0.0-4.40); Cholesterol 139 mg/dL (0-200); Globulin 2.4 g/dL (1.3-4.6); Glomerular Filtration Rate 57.8 mL/min (90-130); Glucose 71 mg/dL (65-115); HDL Cholesterol 41 mg/dL (60-100); LDL Cholesterol Calculated 81 mg/dL (50-129); LDL HDL Ratio 1.98 RATIO (0.00-3.22); Osmolality Calculated 298 mOsm/kg (285-295); Potassium 3.9 mmol/L (3.5-5.1); Sodium 145 mmol/L (136-145); Total Bilirubin 0.2 mg/dL (0.15-1.2); Total Protein 6.2 g/dL (6.6-8.7); Triglycerides 84 mg/dL (0-150)
[2023-12-05 18:32] LABS: Creatinine Urine, Random 78 mg/dL (28-217); Microalbum Creatinine Ratio Ur 13 mg/dL (0-20); Microalbumin Random Urine 1 ug/dL (0-20)
[2023-12-05 20:26] LABS: Estmated Average Glucose 85; Hemoglobin A1C 4.6 % (4.0-6.0)
== END 2023-12-05 17:31 | disposition home or self-care (01) ==
LOC: LAB 17:31
PROVIDERS: PCP Nurse Practitioner Family; Visit Provider Internal Medicine
DX: E11.9 Type 2 diabetes mellitus without complications (principal); K76.0 Fatty (change of) liver, not elsewhere classified
CPT/HCPCS: 36415; 80053; 80061; 82044; 83036

== ENCOUNTER → 2023-12-09 08:39 | Outpatient (BNVA) | payer MEDICARE, MEDICAID, SELFPAY ==
[2022-09-19 13:43] VITALS: BP 104/72; BMI 42.2
== END ==
PROVIDERS: PCP Nurse Practitioner Family; Visit Provider Internal Medicine
DX: E11.9 Type 2 diabetes mellitus without complications (principal); K76.0 Fatty (change of) liver, not elsewhere classified; E78.2 Mixed hyperlipidemia; Z79.85 Long-term (current) use of injectable non-insulin antidiabetic drugs
CPT/HCPCS: 99214

== ENCOUNTER → 2024-01-22 15:56 | Outpatient (BNVA) | payer MEDICARE, MEDICAID, SELFPAY ==
[2022-09-19 13:43] VITALS: BP 104/72; BMI 42.2
== END ==
PROVIDERS: PCP Nurse Practitioner Family; Visit Provider Nurse Practitioner Family
DX: N30.00 Acute cystitis without hematuria (principal)
CPT/HCPCS: 81003; 87086

== ENCOUNTER → 2024-02-12 15:22 | Outpatient (BNVA) | payer MEDICARE, MEDICAID, SELFPAY ==
[2022-09-19 13:43] VITALS: BP 104/72; BMI 42.2
== END ==
PROVIDERS: PCP Nurse Practitioner Family; Visit Provider Internal Medicine Cardiovascular Disease
DX: R55 Syncope and collapse (principal); I95.1 Orthostatic hypotension; G47.33 Obstructive sleep apnea (adult) (pediatric); E78.2 Mixed hyperlipidemia; F43.12 Post-traumatic stress disorder, chronic; E11.9 Type 2 diabetes mellitus without complications; Z79.85 Long-term (current) use of injectable non-insulin antidiabetic drugs; F33.2 Major depressive disorder, recurrent severe without psychotic features; F17.210 Nicotine dependence, cigarettes, uncomplicated
CPT/HCPCS: 99215

== ENCOUNTER → 2024-03-02 09:00 | Outpatient (BNVA) | payer MEDICARE, OTHER, SELFPAY ==
[2022-09-19 13:43] VITALS: BP 104/72; BMI 42.2
== END ==
PROVIDERS: PCP Nurse Practitioner Family; Visit Provider Nurse Practitioner Family
DX: E11.9 Type 2 diabetes mellitus without complications (principal); K76.0 Fatty (change of) liver, not elsewhere classified; M19.90 Unspecified osteoarthritis, unspecified site; N30.00 Acute cystitis without hematuria
CPT/HCPCS: 80053; 80061; 81003; 82043; 83036; 84550; 86038; 86200; 86431; 87086

== ENCOUNTER → 2024-03-12 08:57 | Outpatient (BNVA) | payer MEDICARE, OTHER, SELFPAY ==
[2022-09-19 13:43] VITALS: BP 104/72; BMI 42.2
== END ==
PROVIDERS: PCP Nurse Practitioner Family; Visit Provider Nurse Practitioner Family
DX: M54.2 Cervicalgia (principal); R76.8 Other specified abnormal immunological findings in serum; M25.50 Pain in unspecified joint; M54.50 Low back pain, unspecified; G89.29 Other chronic pain; M79.643 Pain in unspecified hand
CPT/HCPCS: 85651; 86140; 86160; 86200; 86431

== ENCOUNTER → 2024-03-20 14:49 | Outpatient (BNVA) | payer MEDICARE, SELFPAY ==
[2022-09-19 13:43] VITALS: BP 104/72; BMI 42.2
== END ==
PROVIDERS: PCP Nurse Practitioner Family; Visit Provider Nurse Practitioner Family
DX: M19.90 Unspecified osteoarthritis, unspecified site (principal); M67.911 Unspecified disorder of synovium and tendon, right shoulder; G89.29 Other chronic pain; M79.642 Pain in left hand; M47.894 Other spondylosis, thoracic region; M25.78 Osteophyte, vertebrae; M50.322 Other cervical disc degeneration at C5-C6 level; M50.323 Other cervical disc degeneration at C6-C7 level
CPT/HCPCS: 72052; 72114; 73030; 73130; 73610

== ENCOUNTER → 2024-04-07 10:54 | Outpatient (BNVA) | payer MEDICARE, SELFPAY ==
[2022-09-19 13:43] VITALS: BP 104/72; BMI 42.2
== END ==
PROVIDERS: PCP Nurse Practitioner Family; Visit Provider Internal Medicine
DX: E11.9 Type 2 diabetes mellitus without complications (principal); K76.0 Fatty (change of) liver, not elsewhere classified; E78.2 Mixed hyperlipidemia; Z79.85 Long-term (current) use of injectable non-insulin antidiabetic drugs
CPT/HCPCS: 99214

== ENCOUNTER 2024-04-09 13:51 | Outpatient (CLI) | payer MEDICARE, SELFPAY ==
[2022-09-19 13:43] VITALS: BP 104/72; BMI 42.2
--- NOTE | 2024-04-09 14:01 | MR_ITS ---
WS: [id number] MRI BRAIN WITH AND WITHOUT CONTRAST HISTORY: R55 - Syncope and collapse COMPARISON: None available. TECHNIQUE: Multiplanar imaging performed through the brain with MultiHance 16 ml's IV. No acute infarcts are seen. Lanza-white matter differentiation is well preserved. There are a few scat tered T2 and FLAIR signal hyperintensities within the white matter. No prior infarct or hemorrhage. N o lacunar infarct. Normal cerebellum. Normal hippocampus. No susceptibility artifacts or prior lacunar infarcts. Ventricles and extra-axial spaces are normal. Clivus and pituitary gland are normal. Visualized posterior fossa and brainstem are also normal. Postcontrast images are negative for masses or vascular malformations. Dural venous sinuses are normal. Paranasal sinuses: Mild diffuse mucoperiosteal thickening. Greater mucoperiosteal thickening involvin g the LEFT sphenoid sinus. No air-fluid levels. Mastoid air cells: Normal. Calvarium and scalp: Normal. MR/MR head wo/w con [id number] IMPRESSION: 1. No acute infarct or hemorrhage. 2. No intracranial enhancing mass. 3. Mild small vessel ischemic type changes with no prior infarct. 4. Mild mucoperiosteal paranasal sinus thickening.
[2024-04-09] MEDS: gadobenate dimeglumine 20 mL vial 16 ML IV (15:38)
== END 2024-04-09 13:52 | disposition home or self-care (01) ==
LOC: RAD 13:56
PROVIDERS: PCP Nurse Practitioner Family; Visit Provider Nurse Practitioner Family
DX: R55 Syncope and collapse (principal); R51.9 Headache, unspecified; H53.9 Unspecified visual disturbance
CPT/HCPCS: 70553; 80053; 82570; 84156; 85025

== ENCOUNTER 2024-04-17 11:58 | Outpatient (CLI) | payer MEDICARE, SELFPAY ==
[2022-09-19 13:43] VITALS: BP 104/72; BMI 42.2
--- NOTE | 2024-04-17 12:00 | USCV_ITS ---
Dinah Fontenot Age: 53 Gender: F : 1970 Exam Date: 04/17/2024 12:13 Ordering Phys: ADAM Kwon APRN Technologist: CT Exam Location: [facility] [place] Indication: BP: 132 / 80 HR: 61 Rhythm: Sinus Technical Quality: Adequate MEASUREMENTS (Male / Female) Normal Values 2D ECHO LVOT Diameter 2.1 cm LV Ejection Fraction MOD 4C 60.5 % LV Ejection Fraction MOD 2C 47.3 % LV Ejection Fraction 2C AL 49.0 % LA Diameter 3.5 cm RA Systolic Volume 4C AL 45.6 ml RA Systolic Volume 4C MOD 43.0 ml LA Sys Volume AL 43.9 cm cubed LA Sys Volume Index AL 22.8 cm cubed/m squared Aorta at Sinotubular Diameter 2.6 cm IVC Diameter 1.8 cm M-MODE LA Ao Ratio MM 1.0 AV Cusp Separation MM 2.6 cm DOPPLER AV Peak Velocity 102.0 cm/s LVOT Peak Velocity 87.0 cm/s AV Area Cont Eq vti 3.0 cm squared AV Area Cont Eq pk 3.0 cm squared MV Peak Velocity 150.0 cm/s MV Area PHT 2.9 cm squared Mitral E to A Ratio 0.9 TV Peak Velocity 296.8 cm/s TR Peak Velocity 314.0 cm/s TR Peak Gradient 39.4 mmHg TR Mean Velocity 220.0 cm/s TR Mean Gradient 21.7 mmHg TR Velocity Time Integral 109.6 cm TV Peak E Velocity 76.0 cm/s PV Peak Velocity 81.0 cm/s FINDINGS Left Ventricle Normal left ventricular size and systolic function, EF 55%.no regional wall motion abnormalities. Grade I/IV diastolic dysfunction (abnormal relaxation filling pattern), normal to mildly elevated filling pressures. Right Ventricle The right ventricle is normal in size and function. Right Atrium The right atrium is normal in size. Left Atrium The left atrium is normal in size. Mitral Valve Mild to moderate mitral valve regurgitation. Eccentric mitral regurgitation with the the regurgitant jet directed anteriorly. Mild prolapse of the posterior leaflet Aortic Valve No gross abnormalities noted Tricuspid Valve [id number] tricuspid valve regurgitation. Estimated pulmonary artery peak systolic pressure 42 mmHg Pulmonic Valve No gross abnormalities noted Pericardium Normal pericardium without effusion. Aorta Normal ascending aorta dimension. IVC Normal inferior vena cava. CONCLUSIONS Normal left ventricular size and systolic function, EF 55%.no regional wall motion abnormalities. Grade I/IV diastolic dysfunction (abnormal relaxation filling pattern), normal to mildly elevated filling pressures. Mild to moderate mitral valve regurgitation. Eccentric mitral regurgitation with the the regurgitant jet directed anteriorly. Mild prolapse of the posterior leaflet. Ixkz-iw-urhrurwy tricuspid valve regurgitation. Estimated pulmonary artery peak systolic pressure 42 mmHg. Compared to the study from 01/30/2021, there is development of diastolic dysfunction and pulmonary hypertension Dr Lawrence Verma MD [facility] (Electronically Signed) Final Date: 17 April 2024 18:30 S
== END 2024-04-17 11:59 | disposition home or self-care (01) ==
LOC: RAD 11:59
PROVIDERS: PCP Nurse Practitioner Family; Visit Provider Nurse Practitioner Family
DX: I34.0 Nonrheumatic mitral (valve) insufficiency (principal); I50.30 Unspecified diastolic (congestive) heart failure; I07.1 Rheumatic tricuspid insufficiency; R55 Syncope and collapse
CPT/HCPCS: 93306

== ENCOUNTER → 2024-05-14 11:15 | Outpatient (BNVA) | payer MEDICARE, MEDICAID, SELFPAY ==
[2022-09-19 13:43] VITALS: BP 104/72; BMI 42.2
== END ==
PROVIDERS: PCP Nurse Practitioner Family; Visit Provider Nurse Practitioner Family
DX: I95.1 Orthostatic hypotension (principal); G47.33 Obstructive sleep apnea (adult) (pediatric); E78.2 Mixed hyperlipidemia; F43.12 Post-traumatic stress disorder, chronic; E11.9 Type 2 diabetes mellitus without complications; F33.2 Major depressive disorder, recurrent severe without psychotic features
CPT/HCPCS: 99213

== ENCOUNTER → 2024-07-30 10:05 | Outpatient (BNVA) | payer MEDICARE, MEDICAID, SELFPAY ==
[2022-09-19 13:43] VITALS: BP 104/72; BMI 42.2
== END ==
PROVIDERS: PCP Nurse Practitioner Family; Visit Provider Nurse Practitioner Family
DX: R31.9 Hematuria, unspecified (principal)
CPT/HCPCS: 81003

== ENCOUNTER → 2024-08-04 10:12 | Outpatient (BNVA) | payer MEDICARE, MEDICAID, SELFPAY ==
[2022-09-19 13:43] VITALS: BP 104/72; BMI 42.2
== END ==
PROVIDERS: PCP Nurse Practitioner Family; Visit Provider Nurse Practitioner Family
DX: N30.00 Acute cystitis without hematuria (principal)
CPT/HCPCS: 81003; 87077; 87086; 87184

== ENCOUNTER → 2024-08-13 09:51 | Outpatient (BNVA) | payer MEDICARE, MEDICAID, SELFPAY ==
[2022-09-19 13:43] VITALS: BP 104/72; BMI 42.2
== END ==
PROVIDERS: PCP Nurse Practitioner Family; Visit Provider Nurse Practitioner Family
DX: K62.5 Hemorrhage of anus and rectum (principal); R23.3 Spontaneous ecchymoses
CPT/HCPCS: 81003; 82728; 83550; 85025; 85610

== ENCOUNTER → 2024-08-24 09:51 | Outpatient (BNVA) | payer MEDICARE, MEDICAID, SELFPAY ==
[2022-09-19 13:43] VITALS: BP 104/72; BMI 42.2
== END ==
PROVIDERS: PCP Nurse Practitioner Family; Visit Provider Student in an Organized Health Care Education/Training Program
DX: K92.1 Melena (principal)
CPT/HCPCS: 99204

== ENCOUNTER → 2024-08-31 14:56 | Outpatient (BNVA) | payer MEDICARE, MEDICAID, SELFPAY ==
[2024-08-31 15:26] VITALS: BP 104/72; BMI 42.2
== END ==
PROVIDERS: PCP Nurse Practitioner Family; Visit Provider Anesthesiology Pain Medicine
DX: M54.40 Lumbago with sciatica, unspecified side (principal); G89.29 Other chronic pain; R03.0 Elevated blood-pressure reading, without diagnosis of hypertension; M17.12 Unilateral primary osteoarthritis, left knee; M50.323 Other cervical disc degeneration at C6-C7 level; M50.322 Other cervical disc degeneration at C5-C6 level
CPT/HCPCS: 99214

== ENCOUNTER → 2024-09-09 14:18 | Outpatient (BNVA) | payer MEDICARE, SELFPAY ==
[2024-09-09 14:52] VITALS: BP 104/72; BMI 42.2
== END ==
PROVIDERS: PCP Nurse Practitioner Family; Visit Provider Anesthesiology Pain Medicine
DX: M79.18 Myalgia, other site (principal); M54.40 Lumbago with sciatica, unspecified side; G89.29 Other chronic pain; R03.0 Elevated blood-pressure reading, without diagnosis of hypertension; M54.2 Cervicalgia; M19.90 Unspecified osteoarthritis, unspecified site; M17.12 Unilateral primary osteoarthritis, left knee
CPT/HCPCS: 20553; 99213; J1010; J3490

== ENCOUNTER → 2024-09-14 08:33 | Outpatient (BNVA) | payer MEDICARE, SELFPAY ==
[2024-09-09 14:52] VITALS: BP 104/72; BMI 42.2
== END ==
PROVIDERS: PCP Nurse Practitioner Family; Visit Provider Nurse Practitioner Family
DX: I95.1 Orthostatic hypotension (principal); G47.33 Obstructive sleep apnea (adult) (pediatric); E78.2 Mixed hyperlipidemia; E11.9 Type 2 diabetes mellitus without complications; Z79.85 Long-term (current) use of injectable non-insulin antidiabetic drugs; F43.12 Post-traumatic stress disorder, chronic; F33.9 Major depressive disorder, recurrent, unspecified; F17.210 Nicotine dependence, cigarettes, uncomplicated
CPT/HCPCS: 99213

== ENCOUNTER → 2024-09-30 08:35 | Outpatient (BNVA) | payer MEDICARE, SELFPAY ==
[2024-09-09 14:52] VITALS: BP 104/72; BMI 42.2
== END ==
PROVIDERS: PCP Nurse Practitioner Family; Visit Provider Internal Medicine
DX: E11.9 Type 2 diabetes mellitus without complications (principal); K76.0 Fatty (change of) liver, not elsewhere classified
CPT/HCPCS: 80053; 80061; 82043; 83036

== ENCOUNTER → 2024-10-06 11:00 | Outpatient (BNVA) | payer MEDICARE, SELFPAY ==
[2024-09-09 14:52] VITALS: BP 104/72; BMI 42.2
== END ==
PROVIDERS: PCP Nurse Practitioner Family; Visit Provider Internal Medicine
DX: E11.9 Type 2 diabetes mellitus without complications (principal); K76.0 Fatty (change of) liver, not elsewhere classified; E78.2 Mixed hyperlipidemia
CPT/HCPCS: 99214

== ENCOUNTER 2024-11-04 11:21 | Outpatient (CLI) | payer MEDICARE, MEDICAID, SELFPAY ==
[2024-09-09 14:52] VITALS: BP 104/72; BMI 42.2
--- NOTE | 2024-11-04 11:20 | MM_ITS ---
WS: [id number] BILATERAL 3D TOMOSYNTHESIS DIGITAL SCREENING MAMMOGRAPHY WITH CAD CLINICAL INFORMATION: SCREENING HISTORY: Screening mammogram. No current complaints. COMPARISON: 2023, , , and TECHNIQUE: Bilateral CC and MLO views. FINDINGS: Scattered fibroglandular densities bilaterally. Increasing nodular densities subareolar RIGHT breast. Recommend further evaluation with ultrasound. LEFT breast is unremarkable and unchanged. MM/MM [facility] tomosynthesis [id number] IMPRESSION: DENSITY: There are scattered areas of fibroglandular density. BI-RADS: 0 - Incomplete: Need additional imaging evaluation. FOLLOW UP: Need Additional Imaging Recommend subareolar RIGHT breast ultrasound.
== END 2024-11-04 11:22 | disposition home or self-care (01) ==
PROVIDERS: PCP Nurse Practitioner Family; Visit Provider Nurse Practitioner Family
DX: Z12.31 Encounter for screening mammogram for malignant neoplasm of breast (principal); R92.323 Mammographic fibroglandular density, bilateral breasts
CPT/HCPCS: 77063; 77067

== ENCOUNTER 2024-11-24 07:18 | Day surgery (SDC) | payer MEDICARE, SELFPAY ==
[2024-09-09 14:52] VITALS: BP 104/72; BMI 42.2
[2024-11-24 07:39] VITALS: BP 107/63; PULSE 74; RESP 16; TEMP 36.3; O2SAT 95; BMI 27.4
--- NOTE | 2024-11-24 08:35 | ANES.PREANE2 ---
Pre-Anesthetic Assessment Height/Weight: Height 1.68 m Weight 77.111 kg Temp Pulse Resp BP Pulse Ox O2 Del Method 97.4 F L 74 16 107/63 95 Room Air 11/24/24 07:39 11/24/24 07:39 11/24/24 07:39 11/24/24 07:39 11/24/24 07:39 11/24/24 07:39 Preop Diagnosis: Hematachezia Operation Date: 11/24/24 08:45 Proposed Procedures p Colonoscopy 93016 G0105, K92.1(Not Applicable) - Pernell Caceres MD Was Beta Comfort taken within 24 hours: N/A Was Clonidine taken within 24 hours: N/A Last intake: Intake Last Liquid Date 11/23/24 Last Liquid Time 22:00 Last Solid Date 11/22/24 Last Solid Time 22:00 Social Tobacco Exam alert, oriented x 3, clear to auscultation bilaterally and regular rate & rhythm Airway Submandibular: within normal limits Cervical ROM: within normal limits Mallampati: Class II Dentition: full (Upper plate) History/ROS No significant history except as noted and No significant complaints Pulmonary Chronic Obstructive Pulmonary Disease CV/HEM Hypotension None reported Hepatic None reported GI None reported Metabolic Diabetes Mellitus [facility] Lower Back Pain, Osteoarthritis/DJD and Weakness Neuropsych Anxiety and Depression Anesthetic Plan ASA status: 3 Anesthesia: Anesthesia Evaluation and MAC Risk of > 500 ml blood loss (7ml/kg in children): No Medications/Allergies Home Medications ?Medication ?Instructions ?Recorded ?Confirmed ?Last Taken ?Type cholecalciferol (vitamin D3) 100 100 mcg PO DAILY 12/07/19 11/24/24 11/23/24 History mcg (4,000 unit) tablet potassium gluconate 595 mg (99 mg) 595 mg PO DAILY 09/13/20 11/24/24 11/23/24 History tablet naproxen sodium 220 mg tablet 220 mg PO BID PRN Pain 09/18/21 11/24/24 11/23/24 History (Aleve) vitamin E (dl, acetate) 450 mg 450 mg PO DAILY 02/21/22 11/24/24 11/23/24 History (1,000 unit) capsule omega-3 fatty acids 1,000 mg 2,000 mg (2 x 1,000 mg) PO DAILY 06/08/22 11/24/24 11/22/24 Rx capsule 30 days #60 caps albuterol sulfate 90 mcg/actuation 1 inh inhalation QID PRN shortness 09/13/22 11/24/24 11/23/24 Rx aerosol inhaler of breath or wheezing #8.5 grams blood sugar diagnostic (Blood #50 ea 09/03/23 11/13/24 Unknown Rx Glucose Test strips) amitriptyline 100 mg tablet 100 mg PO DAILY #30 tabs 02/26/24 11/24/24 11/23/24 Rx bupropion HCl 300 mg 24 hr tablet, 300 mg PO QAM #30 tabs 02/26/24 11/24/24 11/23/24 Rx extended release (Wellbutrin XL) paroxetine HCl 20 mg tablet 20 mg PO DAILY #30 tabs 02/26/24 11/24/24 11/23/24 Rx paroxetine HCl 40 mg tablet (Paxil) 40 mg PO DAILY #30 tabs 02/26/24 11/24/24 11/23/24 Rx trazodone 100 mg tablet 600 mg (6 x 100 mg) PO .HS PRN 02/26/24 11/24/24 11/23/24 Rx insomnia #180 tabs dulaglutide 4.5 mg/0.5 mL 4.5 mg (0.5 mL) SUBCUT Q7D #6 mL 04/28/24 11/24/24 11/10/24 Rx subcutaneous pen injector (Trulicity) tiotropium bromide 18 mcg capsule See Rx Instructions .Route 07/07/24 11/24/24 11/23/24 Rx with inhalation device (Spiriva .COMPLEX #30 caps with HandiHaler) fluticasone furoate 100 See Rx Instructions .Route 08/27/24 11/24/24 11/23/24 Rx mcg-vilanterol 25 mcg/dose .COMPLEX #60 ea inhalation powder (Breo Ellipta) docusate sodium 100 mg capsule 100 mg PO BID 08/31/24 11/24/24 11/23/24 History topiramate 100 mg tablet (Topamax) 100 mg PO BID #60 tabs 08/31/24 11/24/24 11/23/24 Rx prazosin 2 mg capsule 2 mg PO .HS #30 caps 09/22/24 11/24/24 11/23/24 Rx midodrine 10 mg tablet 10 mg PO BID #60 tabs 09/25/24 11/24/24 11/23/24 Rx atorvastatin 40 mg tablet 40 mg PO DAILY #90 tabs 10/13/24 11/24/24 11/23/24 Rx estradiol 0.01% (0.1 mg/gram) 1 appful vaginal DAILY #42.5 grams 10/28/24 11/24/24 11/23/24 Rx vaginal cream (Estrace) magnesium oxide 400 mg (241.3 mg 400 mg PO DAILY 11/18/24 11/24/24 11/23/24 History magnesium) tablet omeprazole 40 mg capsule,delayed 40 mg PO DAILY 11/18/24 11/24/24 11/23/24 History release oxybutynin chloride 10 mg 10 mg PO .QHS 11/18/24 11/24/24 11/23/24 History tablet,extended release 24 hr Allergies Allergy/AdvReac Type Severity Reaction Status Date / Time semaglutide (From Ozempic) Allergy Intermediate ADR-Nausea Verified 11/24/24 07:37 wheat Allergy Unknown Verified 11/24/24 07:37 tramadol (From [employer]) AdvReac Intermediate Nausea, Verified 11/24/24 07:37 drowsiness Current Medications Generic Name Dose Route Start Last Admin Trade Name Freq PRN Reason Stop Dose Admin Sodium Chloride 1,000 mls @ 15 mls/hr 11/24/24 07:25 11/24/24 07:50 Sodium Chloride 0.9% IV 11/25/24 07:24 15 mls/hr .Q24H PRN Administration COLONOSCOPY FLUIDS PFSH Anesthesia Medical History (Updated 11/18/24 @ 01:21 by Doug Strong MD) Persistent nodularity of breast Vitamin D deficiency Abnormal mammogram of right breast Anemia Bruises easily Diverticulosis large intestine w/o perforation or abscess w/bleeding Rectal bleeding Post-menopausal bleeding Heart valve disorder Pulmonary hypertension Diastolic dysfunction Otitis externa Visual changes Headache Syncope Mitral valve regurgitation Joint pain Positive FRANKLIN (antinuclear antibody) Chronic hand pain Arthritis GERD (gastroesophageal reflux disease) Has never had an endoscopy E. coli UTI Urinary tract infection UTI symptoms Recurrent hematuria Osteoarthritis Reflux esophagitis Encounter for smoking cessation counseling Mass on back Breast nodule Atelectasis, right Metabolic syndrome Obesity (BMI 30-39.9) History of colon polyps Colon polyps Toenail deformity Right shoulder pain Breast cancer screening by mammogram Carotid bruit Smoker Psychiatric care H/O cardiac disorder COPD (chronic obstructive pulmonary disease) Urinary incontinence Low back pain Bilateral ankle pain MARIA GUADALUPE (obstructive sleep apnea) Lumbar stenosis Hyperlipemia Right carpal tunnel syndrome Left carpal tunnel syndrome Bilateral wheezing Shortness of breath DDD (degenerative disc disease), lumbar Otitis media Lower respiratory infection Numbness and tingling of lower extremity Bilateral carpal tunnel syndrome Nicotine dependence, unspecified, uncomplicated Generalized anxiety disorder Major depressive disorder, recurrent severe without psychotic features Post-traumatic stress disorder, chronic DDD (degenerative disc disease), cervical Chronic low back pain Chronic neck pain Benign hypertension Anxiety and depression UTI (urinary tract infection), uncomplicated Rotator cuff dysfunction Postcholecystectomy syndrome Mixed hyperlipidemia Diarrhea Magnesium deficiency Reactive lymphoid hyperplasia Vaginal atrophy Enlarged lymph nodes in armpit SCHAEFER (nonalcoholic steatohepatitis) No pertinent past medical history Denies asthma, seizures, DVT/PE or thyroid problems. PCP: Nohemi Kwon, COMMUNICATIONS PROGRAMMER Axillary lymphadenopathy Fatigue Diabetes mellitus, type II Abnormal mammogram HTN (hypertension) Hyperlipemia Surgical History S/P bladder repair x2 ----> 2006--had bladder prolapse and had mesh placed by Dr. Estrada. ----> 2014---patient had pain and had removal of mesh by Dr. Perry In [place] History of carpal tunnel release of both wrists 2020 S/P matrixectomy of toe H/O vaginal surgery (01/12/20) Posterior colporrhaphy. Performed by Dr. Robles at [facility] in [place], [place] S/P colonoscopy with polypectomy Patient had colonoscopy with removal of two polyps. 2013 at [facility]. Status post tonsillectomy Age of 6 or 7 S/P wrist surgery --ganglion cyst removed from left wrist Status post hysterectomy 2006--vaginal hysterectomy with bilateral salpingo-oophorectomy done for abnormal uterine bleeding by Dr. Estrada. -Patient states her pathology was benign. Status post tubal ligation 1992- procedure via umbilicus S/P laparoscopic cholecystectomy 1993 Family History (Updated 10/28/24 @ 08:36 by Carmen Matthew CMA) Mother Diabetes Grandmother Diabetes maternal Hypertension maternal Brother Diabetes Family/Other Breast cancer paternal aunt, age at diagnosis unknown Sister Ovarian cancer diagnosed in her 30s, mets to uterus Denies family history of Colon cancer Heart disease Hyperlipidemia Uterine cancer Thyroid disease Stroke Social History Smoking and tobacco/nicotine status: current every day tobacco/nicotine user cigarettes Packs smoked per day: 0.5 Years cigarettes smoked: 32 [ Other cigarette details: Started at age 20] Quit status (tobacco/nicotine): has quit using Year quit tobacco: 2021 Second hand smoke exposure: Yes Alcohol intake: former Substance/Drug Use: never Additional social history: - Tobacco Use: Started smoking at age 20 and has smoked up to 1 1/2 packs per day since then. Currently smoking one pack per day. Drug Use: Denies Alcohol Use: Denies Work/Study Status: Stay at home mother Adopted: No Caregiver/support person: No Lives independently: Yes Household members: none Housing: House Marital status: Number of children: 4 Number of grandchildren: 9 Highest education level completed: 11th Grade service: No Current occupational status: disabled Current occupational exposures/hazards: No Pets and animals: Yes Pets & animals: dog(s) Leisure activites: other Leisure activities details: get together with friends Do you think of yourself as: Straight/Heterosexual Current gender identity: Female Mary/Spiritism: None Special mary needs: No Agree to transfusion: Yes Female Reproductive History Para: 4 Spontaneous abortions: No Data Anesthesia Cardiac Studies: Echocardiogram 04/17/24 Sestamibi Stress Test (Cardiology) 04/03/21 Cardiac Event Monitor 02/17/24
--- NOTE | 2024-11-24 08:56 | W.PM.OPSFHP ---
Same Day Surgery H&P Indication for Procedure/HPI DATE OF PROCEDURE: November 24, 2024 CHIEF COMPLAINT/INDICATIONFOR SURGICAL PROCEDURE: hematochezia PREOP DIAGNOSIS: Hematachezia PLANNED PROCEDURE: Operation Date: 11/24/24 08:45 Proposed Procedures p Colonoscopy 78293 G0105, K92.1(Not Applicable) - Pernell Caceres MD Medications/Allergies* Home Medications ?Medication ?Instructions ?Recorded ?Confirmed ?Type cholecalciferol (vitamin D3) 100 100 mcg PO DAILY 12/07/19 11/24/24 History mcg (4,000 unit) tablet potassium gluconate 595 mg (99 mg) 595 mg PO DAILY 09/13/20 11/24/24 History tablet naproxen sodium 220 mg tablet 220 mg PO BID PRN Pain 09/18/21 11/24/24 History (Aleve) vitamin E (dl, acetate) 450 mg 450 mg PO DAILY 02/21/22 11/24/24 History (1,000 unit) capsule docusate sodium 100 mg capsule 100 mg PO BID 08/31/24 11/24/24 History magnesium oxide 400 mg (241.3 mg 400 mg PO DAILY 11/18/24 11/24/24 History magnesium) tablet omeprazole 40 mg capsule,delayed 40 mg PO DAILY 11/18/24 11/24/24 History release oxybutynin chloride 10 mg 10 mg PO .QHS 11/18/24 11/24/24 History tablet,extended release 24 hr Allergies/Adverse Reactions Allergy/AdvReac Type Severity Reaction Status Date / Time semaglutide (From Ozempic) Allergy Intermediate ADR-Nausea Verified 11/24/24 07:37 wheat Allergy Unknown Verified 11/24/24 07:37 tramadol (From Ultram) AdvReac Intermediate Nausea, Verified 11/24/24 07:37 drowsiness Current Medications: Generic Name Dose Route Start Last Admin Trade Name Freq PRN Reason Stop Dose Admin Sodium Chloride 1,000 mls @ 15 mls/hr 11/24/24 07:25 11/24/24 07:50 Sodium Chloride 0.9% IV 11/25/24 07:24 15 mls/hr .Q24H PRN Administration COLONOSCOPY FLUIDS Pertinent History/Comorbid Conditions* Medical History (Updated 11/18/24 @ 01:21 by Doug Strong MD) Persistent nodularity of breast Vitamin D deficiency Abnormal mammogram of right breast Anemia Bruises easily Diverticulosis large intestine w/o perforation or abscess w/bleeding Rectal bleeding Post-menopausal bleeding Heart valve disorder Pulmonary hypertension Diastolic dysfunction Otitis externa Visual changes Headache Syncope Mitral valve regurgitation Joint pain Positive FRANKLIN (antinuclear antibody) Chronic hand pain Arthritis GERD (gastroesophageal reflux disease) Has never had an endoscopy E. coli UTI Urinary tract infection UTI symptoms Recurrent hematuria Osteoarthritis Reflux esophagitis Encounter for smoking cessation counseling Mass on back Breast nodule Atelectasis, right Metabolic syndrome Obesity (BMI 30-39.9) History of colon polyps Colon polyps Toenail deformity Right shoulder pain Breast cancer screening by mammogram Carotid bruit Smoker Psychiatric care H/O cardiac disorder COPD (chronic obstructive pulmonary disease) Urinary incontinence Low back pain Bilateral ankle pain MARIA GUADALUPE (obstructive sleep apnea) Lumbar stenosis Hyperlipemia Right carpal tunnel syndrome Left carpal tunnel syndrome Bilateral wheezing Shortness of breath DDD (degenerative disc disease), lumbar Otitis media Lower respiratory infection Numbness and tingling of lower extremity Bilateral carpal tunnel syndrome Nicotine dependence, unspecified, uncomplicated Generalized anxiety disorder Major depressive disorder, recurrent severe without psychotic features Post-traumatic stress disorder, chronic DDD (degenerative disc disease), cervical Chronic low back pain Chronic neck pain Benign hypertension Anxiety and depression UTI (urinary tract infection), uncomplicated Rotator cuff dysfunction Postcholecystectomy syndrome Mixed hyperlipidemia Diarrhea Magnesium deficiency Reactive lymphoid hyperplasia Vaginal atrophy Enlarged lymph nodes in armpit SCHAEFER (nonalcoholic steatohepatitis) No pertinent past medical history Denies asthma, seizures, DVT/PE or thyroid problems. PCP: NATHALIE Meyer Axillary lymphadenopathy Fatigue Diabetes mellitus, type II Abnormal mammogram HTN (hypertension) Hyperlipemia Surgical History (Updated 07/30/24 @ 10:30 by NATHALIE Patterson) S/P bladder repair x2 ----> 2006--had bladder prolapse and had mesh placed by Dr. Estrada. ----> 2014---patient had pain and had removal of mesh by Dr. Perry In [place] History of carpal tunnel release of both wrists 2020 S/P matrixectomy of toe H/O vaginal surgery (01/12/20) Posterior colporrhaphy. Performed by Dr. Robles at [facility] [place] in [place], [place] S/P colonoscopy with polypectomy Patient had colonoscopy with removal of two polyps. 2013 at [facility]. Status post tonsillectomy Age of 6 or 7 S/P wrist surgery --ganglion cyst removed from left wrist Status post hysterectomy 2006--vaginal hysterectomy with bilateral salpingo-oophorectomy done for abnormal uterine bleeding by Dr. Estrada. -Patient states her pathology was benign. Status post tubal ligation 1992- procedure via umbilicus S/P laparoscopic cholecystectomy 1993 Family History (Updated 10/28/24 @ 08:[address] [facility]) Ovarian cancer Sister diagnosed in her 30s, mets to uterus Diabetes Mother Grandmother maternal Brother Breast cancer Family/Other paternal aunt, age at diagnosis unknown Hypertension Grandmother maternal Denies family history of Colon cancer Heart disease Hyperlipidemia Uterine cancer Thyroid disease Stroke Social History Smoking and tobacco/nicotine status: current every day tobacco/nicotine user cigarettes Packs smoked per day: 0.5 Years cigarettes smoked: 32 [ Other cigarette details: Started at age 20] Quit status (tobacco/nicotine): has quit using Year quit tobacco: 2021 Second hand smoke exposure: Yes Alcohol intake: former Substance/Drug Use: never Additional social history: - Tobacco Use: Started smoking at age 20 and has smoked up to 1 1/2 packs per day since then. Currently smoking one pack per day. Drug Use: Denies Alcohol Use: Denies Work/Study Status: Stay at home mother Adopted: No Caregiver/support person: No Lives independently: Yes Household members: none Housing: House Marital status: Number of children: 4 Number of grandchildren: 9 Highest education level completed: 11th Grade service: No Current occupational status: disabled Current occupational exposures/hazards: No Pets and animals: Yes Pets & animals: dog(s) Leisure activites: other Leisure activities details: get together with friends Do you think of yourself as: Straight/Heterosexual Current gender identity: Female Mary/Mu-Ism: None Special mary needs: No Agree to transfusion: Yes Pertinent Exam Findings alert, oriented x 3, clear to auscultation bilaterally, regular rate & rhythm and procedure specific exam findings abdomen soft, nt, nd Recommendations Risks and benefits of procedure reviewed and Patient/family agree to proceed Surgery/Procedure today Coding Level of Care Code Acute Code for Chg Fwd
[2024-11-24 09:25] VITALS: BP 100/57; PULSE 72; RESP 20; TEMP 36.1; O2SAT 96
--- NOTE | 2024-11-24 09:29 | SUR.OPER ---
cecum time 0915 to 0953
[2024-11-24 09:38] VITALS: BP 103/66; PULSE 77; RESP 20; O2SAT 97
--- NOTE | 2024-11-24 16:03 | ANE.PACU2 ---
Inpatient post-anesthesia follow up: Airway intact: Yes Vital signs: Temperature 97.0 F Pulse Rate 77 Respiratory Rate 20 Blood Pressure 103/66 Pulse Oximetry 97 Oxygen Delivery Me thod Room Air Oxygen Flow Rate 2 Fraction of Inspir ed Oxygen Hydration adequate: Yes Nausea and vomiting: No Pain level: 1 Mental status: Baseline
== END 2024-11-24 10:02 | disposition home or self-care (01) ==
PROVIDERS: PCP Nurse Practitioner Family; Visit Provider Student in an Organized Health Care Education/Training Program
PROC: 0DJD8ZZ Inspection of Lower Intestinal Tract, Via Natural or Artificial Opening Endoscopic (ICD-10-PCS; CPT 45378; principal; 2024-11-24 08:45)
DX: D12.3 Benign neoplasm of transverse colon (principal); K92.1 Melena; J44.9 Chronic obstructive pulmonary disease, unspecified; G47.33 Obstructive sleep apnea (adult) (pediatric); E11.9 Type 2 diabetes mellitus without complications; E78.2 Mixed hyperlipidemia; F17.210 Nicotine dependence, cigarettes, uncomplicated; I10 Essential (primary) hypertension; Z79.899 Other long term (current) drug therapy; Z79.85 Long-term (current) use of injectable non-insulin antidiabetic drugs; Z88.8 Allergy status to other drugs, medicaments and biological substances; Z86.0100 Personal history of colon polyps, unspecified
CPT/HCPCS: 36416; 45385; 82962; 88305; J2704; J7030

== ENCOUNTER 2024-11-26 08:16 | Outpatient (CLI) | payer MEDICARE, SELFPAY ==
[2024-09-09 14:52] VITALS: BP 104/72; BMI 42.2
--- NOTE | 2024-11-26 09:30 | US_ITS ---
WS: [id number] ULTRASOUND BREAST RIGHT TECHNIQUE: Ultrasound right breast focused area of concern. CLINICAL INFORMATION: R92.8 - Other abnormal and inconclusive findings on diagn... FINDINGS: Ultrasound subareolar RIGHT breast. No suspicious abnormalities in the area of nodularity on today's ultrasound. Dense parenchymal tissue deep to the areola but no evidence of cystic or solid lesion. No lesions to target for biopsy. Recommend return to annual screening mammography US/US breast RT limited* [id number] IMPRESSION: BI-RADS 2 benign Recommend return to annual screening mammography
== END 2024-11-26 08:17 | disposition home or self-care (01) ==
LOC: RAD 08:18
PROVIDERS: PCP Nurse Practitioner Family; Visit Provider Nurse Practitioner Family
DX: R92.8 Other abnormal and inconclusive findings on diagnostic imaging of breast (principal); R92.30 Dense breasts, unspecified
CPT/HCPCS: 76642

== ENCOUNTER → 2024-12-07 12:45 | Outpatient (BNVA) | payer MEDICARE, SELFPAY ==
[2024-09-09 14:52] VITALS: BP 104/72; BMI 42.2
== END ==
PROVIDERS: PCP Nurse Practitioner Family; Visit Provider Student in an Organized Health Care Education/Training Program
DX: Z09 Encounter for follow-up examination after completed treatment for conditions other than malignant neoplasm (principal)
CPT/HCPCS: 99213

== ENCOUNTER → 2024-12-08 14:54 | Outpatient (BNVA) | payer MEDICARE, SELFPAY ==
[2024-09-09 14:52] VITALS: BP 104/72; BMI 42.2
== END ==
PROVIDERS: PCP Nurse Practitioner Family; Visit Provider Internal Medicine Cardiovascular Disease
DX: I08.1 Rheumatic disorders of both mitral and tricuspid valves (principal); I95.1 Orthostatic hypotension; G47.33 Obstructive sleep apnea (adult) (pediatric); Z99.89 Dependence on other enabling machines and devices; E78.5 Hyperlipidemia, unspecified; F43.12 Post-traumatic stress disorder, chronic; E11.9 Type 2 diabetes mellitus without complications; Z79.85 Long-term (current) use of injectable non-insulin antidiabetic drugs; F17.210 Nicotine dependence, cigarettes, uncomplicated
CPT/HCPCS: 99214

== ENCOUNTER → 2024-12-21 12:57 | Outpatient (BNVA) | payer MEDICARE, SELFPAY ==
[2024-09-09 14:52] VITALS: BP 104/72; BMI 42.2
== END ==
PROVIDERS: PCP Nurse Practitioner Family; Visit Provider Anesthesiology Pain Medicine
DX: M54.40 Lumbago with sciatica, unspecified side (principal); G89.29 Other chronic pain; R03.0 Elevated blood-pressure reading, without diagnosis of hypertension; M54.2 Cervicalgia; M51.369 Other intervertebral disc degeneration, lumbar region without mention of lumbar back pain or lower extremity pain; M19.90 Unspecified osteoarthritis, unspecified site; M17.12 Unilateral primary osteoarthritis, left knee; F17.210 Nicotine dependence, cigarettes, uncomplicated
CPT/HCPCS: 99214

== ENCOUNTER → 2024-12-30 10:31 | Outpatient (BNVA) | payer MEDICARE, SELFPAY ==
[2024-12-21 13:27] VITALS: BP 104/72; BMI 42.2
== END ==
PROVIDERS: PCP Nurse Practitioner Family; Visit Provider Anesthesiology Pain Medicine
DX: M47.816 Spondylosis without myelopathy or radiculopathy, lumbar region (principal)
CPT/HCPCS: 64493; 64494; 64495; J3490; J9999

== ENCOUNTER → 2025-01-12 07:41 | Outpatient (BNVA) | payer MEDICARE, MEDICAID, SELFPAY ==
[2024-12-21 13:27] VITALS: BP 104/72; BMI 42.2
== END ==
PROVIDERS: PCP Nurse Practitioner Family; Visit Provider Anesthesiology Pain Medicine
DX: M54.2 Cervicalgia (principal); M51.369 Other intervertebral disc degeneration, lumbar region without mention of lumbar back pain or lower extremity pain; M17.12 Unilateral primary osteoarthritis, left knee; R03.0 Elevated blood-pressure reading, without diagnosis of hypertension; G89.29 Other chronic pain
CPT/HCPCS: 99214

== ENCOUNTER → 2025-01-26 13:22 | Outpatient (BNVA) | payer MEDICARE, MEDICAID, SELFPAY ==
[2024-12-21 13:27] VITALS: BP 104/72; BMI 42.2
== END ==
PROVIDERS: PCP Nurse Practitioner Family; Visit Provider Anesthesiology Pain Medicine
DX: M47.816 Spondylosis without myelopathy or radiculopathy, lumbar region (principal)
CPT/HCPCS: 64493; 64494; 64495; J3490; J9999

== ENCOUNTER → 2025-02-09 08:47 | Outpatient (BNVA) | payer MEDICARE, MEDICAID, SELFPAY ==
[2025-02-09 09:45] VITALS: BP 104/72; BMI 42.2
== END ==
PROVIDERS: PCP Nurse Practitioner Family; Visit Provider Anesthesiology Pain Medicine
DX: M51.369 Other intervertebral disc degeneration, lumbar region without mention of lumbar back pain or lower extremity pain (principal); G89.29 Other chronic pain; M17.12 Unilateral primary osteoarthritis, left knee; R03.0 Elevated blood-pressure reading, without diagnosis of hypertension
CPT/HCPCS: 99214

== ENCOUNTER → 2025-03-17 10:08 | Outpatient (BNVA) | payer MEDICARE, MEDICAID, SELFPAY ==
[2025-02-09 09:45] VITALS: BP 104/72; BMI 42.2
== END ==
PROVIDERS: PCP Nurse Practitioner Family; Visit Provider Anesthesiology Pain Medicine
DX: M47.816 Spondylosis without myelopathy or radiculopathy, lumbar region (principal); E11.9 Type 2 diabetes mellitus without complications
CPT/HCPCS: 36416; 64635; 64636; 82962; J1100; J9999

== ENCOUNTER → 2025-04-06 13:33 | Outpatient (BNVA) | payer MEDICARE, MEDICAID, SELFPAY ==
[2025-02-09 09:45] VITALS: BP 104/72; BMI 42.2
== END ==
PROVIDERS: PCP Nurse Practitioner Family; Visit Provider Anesthesiology Pain Medicine
DX: M47.816 Spondylosis without myelopathy or radiculopathy, lumbar region (principal)
CPT/HCPCS: 64635; 64636; J1100; J9999